=== PATIENT | female | born 1965 | race Caucasian/White ===

== ENCOUNTER 2021-02-23 10:43 | Outpatient (REF) | payer OTHER, SELFPAY ==
[2021-02-23 10:50] LABS: MANUAL DIFF FLAG NO
[2021-02-23 11:09] LABS: Appearance Urine CLEAR; Color Urine YELLOW; Glucose Urine UA NEG (NEG); Leukocyte Esterase Urine NEG (NEG); Nitrite Urine NEG (NEG); Specific Gravity - Urine 1.025 (1.005-1.025); Urine Blood NEG (NEG); Urine Ketones NEG (NEG); Urine Protein NEG (NEG-TRACE)
[2021-02-23 11:10] LABS: Basophils Absolute Auto 0.1 X10*3/uL (0.0-0.2); Basophils Percent Auto 0.8 % (0-2); Eosinophils Absolute Auto 0.7 X10*3/uL (0.0-0.4); Eosinophils Percent Auto 9.3 % (0-4); Hematocrit 40.8 % (37.0-47.0); Hemoglobin 13.3 g/dl (12.0-16.0); Imm Gran Abs Auto 0.02 X10*3/uL (0.00-0.03); Imm Gran Pct Auto 0.3 % (0.0-0.4); Lymphocytes Absolute Auto 3.4 X10*3/uL (1.2-4.9); Mean Corpuscular HGB Conc 32.6 g/dl (31.0-35.0); Mean Corpuscular Volume 92.1 fL (80.0-98.0); Monocytes Absolute Auto 0.5 X10*3/uL (0.1-1.2); Monocytes Percent Auto 5.9 % (2-11); Neutrophils Absolute Auto 3.1 x10*3/uL (2.0-8.3); Neutrophils Percent Auto 39.7 % (45-73); Platelet Count 349 X10*3/uL (160-400); Red Blood Count 4.43 X10*6/uL (4.20-5.50); Red Cell Distribution Width 12.9 % (11.0-16.0); White Blood Count 7.8 X10*3/uL (4.8-10.8)
[2021-02-23 11:18] LABS: Alanine Aminotransferase 99 U/L (0-31); Albumin Level 4.2 g/dL (3.5-5.0); Alkaline Phosphatase 143 U/L (39-117); Anion Gap 12 (12-20); Aspartate Amino Transferase 49 U/L (5-31); Bilirubin Total 0.3 mg/dL (0.0-1.0); Blood Urea Nitrogen 14 mg/dL (9-16); Calcium 9.3 mg/dL (8.4-10.2); Carbon Dioxide 24 mmol/L (22-29); Chloride 109 mmol/L (96-108); Cholesterol 226 mg/dL; Estimated Glomerular Filt Rate > 60; Glucose Fasting 108 mg/dL (60-99); HDL Cholesterol 65 mg/dL; LDL Cholesterol Calculated 149 mg/dl; Potassium 4.3 mmol/L (3.3-5.1); Sodium 141 mmol/L (135-145); Triglycerides 61 mg/dL
== END 2021-02-23 10:44 | disposition home or self-care (01) ==
LOC: HO.LNP 10:43
PROVIDERS: PCP Internal Medicine; Visit Provider Internal Medicine
DX: Z00.00 Encounter for general adult medical examination without abnormal findings (principal)
CPT/HCPCS: 80053; 80061; 81003; 85025

== ENCOUNTER 2021-03-16 15:24 | Outpatient (REF) | payer OTHER, SELFPAY ==
[2021-03-16 15:27] LABS: MANUAL DIFF FLAG NO
[2021-03-16 15:37] LABS: Basophils Absolute Auto 0.1 X10*3/uL (0.0-0.2); Basophils Percent Auto 0.7 % (0-2); Eosinophils Absolute Auto 1.5 X10*3/uL (0.0-0.4); Eosinophils Percent Auto 14.5 % (0-4); Hematocrit 39.8 % (37.0-47.0); Hemoglobin 13.2 g/dl (12.0-16.0); Imm Gran Abs Auto 0.01 X10*3/uL (0.00-0.03); Imm Gran Pct Auto 0.1 % (0.0-0.4); Lymphocytes Absolute Auto 4.2 X10*3/uL (1.2-4.9); Lymphocytes Percent Auto 40.5 % (20-40); Mean Corpuscular HGB Conc 33.2 g/dl (31.0-35.0); Mean Corpuscular Volume 90.5 fL (80.0-98.0); Mean Platelet Volume 9.7 fL (9.4-12.3); Monocytes Absolute Auto 0.6 X10*3/uL (0.1-1.2); Monocytes Percent Auto 5.5 % (2-11); Neutrophils Percent Auto 38.7 % (45-73); Platelet Count 376 X10*3/uL (160-400); Red Cell Distribution Width 13.2 % (11.0-16.0); White Blood Count 10.3 X10*3/uL (4.8-10.8)
[2021-03-16 15:59] LABS: Alanine Aminotransferase 65 U/L (0-31); Albumin Level 4.4 g/dL (3.5-5.0); Alkaline Phosphatase 154 U/L (39-117); Aspartate Amino Transferase 45 U/L (5-31); Bilirubin Direct < 0.2 mg/dL (0.0-0.5); Bilirubin Total 0.2 mg/dL (0.0-1.0); Total Protein 7.4 g/dL (6.5-8.0)
[2021-03-17 12:04] LABS: ~Hepatitis B Surface Antibody NONREACTIVE (Nonreactive)
[2021-03-17 12:11] LABS: HBc Num1 0.08 S/CO (0.00-0.79); Hepatitis B Core Antibody Nonreactive (Nonreactive); Hepatitis B Surface Antigen Negative (Negative); ~HepC Num1 0.12 S/CO (0.00-0.79); ~Hepatitis C Antibody Nonreactive (Nonreactive)
[2021-03-21 08:33] LABS: Hepatitis A Antibody IgM 0.16 Index (0-0.79); ~Hepatitis A Antibody IgM Nonreactive (Nonreactive)
== END 2021-03-16 15:25 | disposition home or self-care (01) ==
LOC: HO.LNP 15:24
PROVIDERS: Visit Provider Internal Medicine
DX: R94.5 Abnormal results of liver function studies (principal); D72.820 Lymphocytosis (symptomatic)
CPT/HCPCS: 80076; 85025; 86704; 86706; 86709; 86803; 87340

== ENCOUNTER 2021-03-23 09:58 | Outpatient (REF) | payer OTHER, SELFPAY ==
--- NOTE | ~2021-03-23 | US_ITS ---
EXAMINATION: US ABDOMEN COMPLETE CLINICAL INFORMATION: Elevated LFTs. COMPARISON: CT abdomen and pelvis without contrast 04/26/2011. TECHNIQUE: Real-time imaging of the abdominal viscera. FINDINGS: PANCREAS: Normal. ABDOMINAL AORTA: The proximal abdominal aorta is normal caliber. There is mild arthroscopic mixed plaque in the distal aortic segment. INFERIOR VENA CAVA: Visualized portions are normal. LIVER: Normal. The liver is normal in size. The liver contour is normal. Parenchymal echogenicity is normal. No focal hepatic lesion. There is no intrahepatic biliary duct dilatation seen. GALLBLADDER: Normal. The gallbladder is physiologically distended without evidence of stones, sludge, polyps, wall thickening or pericholecystic fluid. COMMON BILE DUCT: Normal in caliber measuring 0.3 cm in diameter. RIGHT KIDNEY: Normal. No hydronephrosis. No renal calculi or focal parenchymal lesions. The kidney measures 12.0 cm in maximum dimension. LEFT KIDNEY: Normal. No hydronephrosis. No renal calculi or focal parenchymal lesions. The kidney measures 10.0 cm in maximum dimension. SPLEEN: Normal. The spleen measures 7.5 cm in maximum dimension. FREE FLUID: None. US/US abdomen complete IMPRESSION: Mild atherosclerotic plaque distal aortic segment. Rest of the abdominal ultrasound is unremarkable.
== END 2021-03-23 09:59 | disposition home or self-care (01) ==
LOC: HO.US 09:58
PROVIDERS: Absent Provider Internal Medicine; PCP Internal Medicine; Visit Provider Internal Medicine
DX: R94.5 Abnormal results of liver function studies (principal)
CPT/HCPCS: 76700

== ENCOUNTER 2021-04-20 11:10 | Emergency (ER) | payer OTHER, SELFPAY ==
--- NOTE | 2021-04-20 | ECG_ITS ---
Test Reason : CHEST PAIN Blood Pressure : / mmHG Vent. Rate : 087 BPM Atrial Rate : 087 BPM P-R Int : 146 ms QRS Dur : 070 ms QT Int : 358 ms P-R-T Axes : 060 071 051 degrees QTc Int : 430 ms Normal sinus rhythm Minimal voltage criteria for LVH, may be normal variant ( Sokolow-Allred ) Borderline ECG No previous ECGs available Referred By: Generic ED Physician Electronically Signed By:Jairo Milton
--- NOTE | ~2021-04-20 | XR_ITS ---
EXAMINATION: XR CHEST 2 VIEW CLINICAL INFORMATION: Chest pain COMPARISON: None TECHNIQUE: PA and lateral views of the chest obtained. FINDINGS: The lungs are clear. There are no pleural effusions. The cardiomediastinal silhouette is normal. No rib fracture or pneumothorax is detected. There are no bone lesions. XR/XR chest 2V IMPRESSION: No active cardiopulmonary disease.
[2021-04-20 12:10] VITALS: BP 173/105; PULSE 83; RESP 18; TEMP 36.4; O2SAT 97; BMI 28.7
[2021-04-20 13:21] LABS: MANUAL DIFF FLAG NO
[2021-04-20 13:41] LABS: COVID-19 Test Negative (Negative); IDNOW Serial# 9DD0AD1C
[2021-04-20 13:42] LABS: Basophils Absolute Auto 0.1 X10*3/uL (0.0-0.2); Basophils Percent Auto 0.8 % (0-2); Eosinophils Absolute Auto 0.4 X10*3/uL (0.0-0.4); Eosinophils Percent Auto 6.2 % (0-4); Hematocrit 41.7 % (37.0-47.0); Hemoglobin 13.6 g/dl (12.0-16.0); Imm Gran Abs Auto 0.01 X10*3/uL (0.00-0.03); Imm Gran Pct Auto 0.2 % (0.0-0.4); Lymphocytes Absolute Auto 2.4 X10*3/uL (1.2-4.9); Lymphocytes Percent Auto 37.6 % (20-40); Mean Corpuscular HGB Conc 32.6 g/dl (31.0-35.0); Mean Corpuscular Hemoglobin 29.6 pg (27.0-33.0); Mean Corpuscular Volume 90.8 fL (80.0-98.0); Mean Platelet Volume 9.1 fL (9.4-12.3); Monocytes Absolute Auto 0.4 X10*3/uL (0.1-1.2); Monocytes Percent Auto 6.1 % (2-11); Neutrophils Absolute Auto 3.2 x10*3/uL (2.0-8.3); Neutrophils Percent Auto 49.1 % (45-73); Platelet Count 390 X10*3/uL (160-400); Red Blood Count 4.59 X10*6/uL (4.20-5.50); Red Cell Distribution Width 13.3 % (11.0-16.0); White Blood Count 6.4 X10*3/uL (4.8-10.8)
--- NOTE | 2021-04-20 13:52 | ED.CHESTPAIN ---
HPI - Chest Pain General Chief Complaint: Chest Pain Stated Complaint: chest pain Time Seen by Provider: 04/20/21 12:04 Source: patient Mode of arrival: ambulatory Limitations: no limitations History of Present Illness HPI narrative: Patient comes to emergency room complaining of chest pressure that started approximately 9 hours ago. Patient states that last night she had deep tissue massage, they worked mostly in her upper body, back, chest. States that she has never had this discomfort in her chest before. Patient states it is right in the middle, nonradiating. Patient denies any abdominal issues, no recent URIs. Complaining of insomnia, states she recently started going through menopause and since then she has had intermittent difficulty sleeping. Related Data Allergies Allergy/AdvReac Type Severity Reaction Status Date / Time No Known Allergies Allergy Unverified 11/25/19 16:16 Review of Systems Review of Systems: Constitutional : No Weight loss, No Fever, No Chills, No Night Sweats, No Fatigue, No Malaise ENT/Mouth : No Hearing loss, No Ear Pain, No Nasal Congestion, No Sinus Pain, No Hoarseness, No sore throat, No Rhinorrhea, No Swallowing Difficulty Eyes: No Eye Pain, No Swelling, No Redness, No Foreign Body, No Discharge, No Vision Changes Cardiovascular : Complaining of substernal chest pressure, No SOB, No Dyspnea on Exertion, No Orthopnea, No Edema, No Palpitations Respiratory : No Cough, No Sputum, No Wheezing, No Smoke Exposure, No Dyspnea Gastrointestinal : No Nausea, No Vomiting, No Diarrhea, No Constipation, No abdominal Pain, No Hematochezia, No Melena Genitourinary : no irregular bleeding, No Dysuria, No Urinary Frequency, No Hematuria, No Urinary Incontinence, No Urgency, No Flank Pain, No Urinary Flow Changes, No Hesitancy Musculoskeletal : No joint pain, No Myalgias, No Joint Swelling Skin : No Skin Lesions, No rash Neuro : No Weakness, No Numbness, No Paresthesias, No Loss of Consciousness, No Dizziness, No Headache Psych : No Anxiety/Panic, No Depression, No SI/HI/AH/VH, No Social Issues, Heme/Lymph: No Bruising, No Bleeding,No Lymphadenopathy Endocrine : No Polyuria, No Polydipsia, No Temperature Intolerance [facility] Social History Social History Advance Directives: No Advance Directives Information Provided: No Physical Exam Vital Signs: Vital Signs: Last Vital Signs Temp 97.5 F 04/20/21 12:10 Pulse 83 04/20/21 12:10 Resp 18 04/20/21 12:10 BP 173/105 H 04/20/21 12:10 Pulse Ox 97 04/20/21 12:10 BMI result Body Mass Index 28.7 Const: Other: Appearance: Alert. Oriented X3. No acute distress. Eyes: Pupils equal, round and reactive to light. ENT: Pharynx normal. Neck: Normal inspection. Neck supple. No lymph nodes noted. No crepitus CVS: Normal heart rate and rhythm. Pulses normal. Normal S1 and S2, +2 systolic murmur on left sternal border Respiratory: No respiratory distress. Breath sounds normal. No Wheezing. No rales Abdomen: Soft and nontender. No rigidity. No distention. good BS x4 Skin: Skin warm and dry. Normal skin color. Normal skin turgor. Extremities: No lower extremity edema. No lower extremity edema. No Lacerations. No Rash Neuro: Oriented X 3. No motor deficit. No sensory deficit. Moving all extermities. No slurred speech. Course Course Course Narrative: It is likely that the patient has musculoskeletal pain rather than pain from cardiac etiology. Chest x-ray within normal limits I discussed with the patient she has high blood pressure, patient has not been diagnosed with hypertension. Patient has an appointment coming up with her PCP. I discussed with the patient to have a log of blood pressure reads in the friend settings including home blood pressure monitor and pharmacy/[facility] free blood pressure reads. At this time, patient states that she does feel anxious from being in the hospital. MDM - Chest Pain Lab Data Result diagrams: 04/20/21 13:15 04/20/21 13:15 Labs: Lab Results 04/20/21 04/20/21 04/20/21 Range/Units 13:15 13:15 13:15 WBC 6.4 (4.8-10.8) X10*3/uL RBC 4.59 (4.20-5.50) X10*6/uL Hgb 13.6 (12.0-16.0) g/dl Hct 41.7 (37.0-47.0) % MCV 90.8 (80.0-98.0) fL MCH 29.6 (27.0-33.0) pg MCHC 32.6 (31.0-35.0) g/dl RDW 13.3 (11.0-16.0) % Plt Count 390 (160-400) X10*3/uL MPV 9.1 L (9.4-12.3) fL Immature Gran % (Auto) 0.2 (0.0-0.4) % Neut % (Auto) 49.1 (45-73) % Lymph % (Auto) 37.6 (20-40) % Cloud % (Auto) 6.1 (2-11) % Eos % (Auto) 6.2 H (0-4) % Baso % (Auto) 0.8 (0-2) % Lymph # (Auto) 2.4 (1.2-4.9) X10*3/uL Cloud # (Auto) 0.4 (0.1-1.2) X10*3/uL Eos # (Auto) 0.4 (0.0-0.4) X10*3/uL Baso # (Auto) 0.1 (0.0-0.2) X10*3/uL Abs Immat Gran (auto) 0.01 (0.00-0.03) X10*3/uL Absolute Neuts (auto) 3.2 (2.0-8.3) x10*3/uL Absolute Nucleated RBC 0.000 (0.0-0.012) X10*3/uL Nucleated RBC % (auto) 0.0 (0.0-0.2) /100WBC Sodium 141 (135-145) mmol/L Potassium 4.1 (3.3-5.1) mmol/L Chloride 105 (96-108) mmol/L Carbon Dioxide 26 (22-29) mmol/L Anion Gap 14 (12-20) BUN 11 (9-16) mg/dL Creatinine 0.79 (0.5-1.4) mg/dL Estim Creat Clear Calc 74.3 Estimated GFR > 60 Random Glucose 105 (60-115) mg/dL Calcium 10.4 H D (8.4-10.2) mg/dL Magnesium 2.2 (1.6-2.6) mg/dL Total Bilirubin 0.4 (0.0-1.0) mg/dL Direct Bilirubin 0.2 (0.0-0.5) mg/dL AST 46 H (5-31) U/L ALT 74 H (0-31) U/L Alkaline Phosphatase 201 H D (39-117) U/L Troponin I High Sens < 3.5 (<3.5-17.0) ng/L Total Protein 8.0 (6.5-8.0) g/dL Albumin 4.7 (3.5-5.0) g/dL COVID-19 (DAVI) (Negative) COVID-19 Clin Com 04/20/21 Range/Units 13:15 WBC (4.8-10.8) X10*3/uL RBC (4.20-5.50) X10*6/uL Hgb (12.0-16.0) g/dl Hct (37.0-47.0) % MCV (80.0-98.0) fL MCH (27.0-33.0) pg MCHC (31.0-35.0) g/dl RDW (11.0-16.0) % Plt Count (160-400) X10*3/uL MPV (9.4-12.3) fL Immature Gran % (Auto) (0.0-0.4) % Neut % (Auto) (45-73) % Lymph % (Auto) (20-40) % Cloud % (Auto) (2-11) % Eos % (Auto) (0-4) % Baso % (Auto) (0-2) % Lymph # (Auto) (1.2-4.9) X10*3/uL Cloud # (Auto) (0.1-1.2) X10*3/uL Eos # (Auto) (0.0-0.4) X10*3/uL Baso # (Auto) (0.0-0.2) X10*3/uL Abs Immat Gran (auto) (0.00-0.03) X10*3/uL Absolute Neuts (auto) (2.0-8.3) x10*3/uL Absolute Nucleated RBC (0.0-0.012) X10*3/uL Nucleated RBC % (auto) (0.0-0.2) /100WBC Sodium (135-145) mmol/L Potassium (3.3-5.1) mmol/L Chloride (96-108) mmol/L Carbon Dioxide (22-29) mmol/L Anion Gap (12-20) BUN (9-16) mg/dL Creatinine (0.5-1.4) mg/dL Estim Creat Clear Calc Estimated GFR Random Glucose (60-115) mg/dL Calcium (8.4-10.2) mg/dL Magnesium (1.6-2.6) mg/dL Total Bilirubin (0.0-1.0) mg/dL Direct Bilirubin (0.0-0.5) mg/dL AST (5-31) U/L ALT (0-31) U/L Alkaline Phosphatase (39-117) U/L Troponin I High Sens (<3.5-17.0) ng/L Total Protein (6.5-8.0) g/dL Albumin (3.5-5.0) g/dL COVID-19 (DAVI) Negative (Negative) COVID-19 Clin Com See Note Scores Heart Score History: -0- slightly suspicious ECG: -0- normal Age: -1- >45 - <65 Risk factory: -0- no risk factors known Troponin: -0- < or = normal limit Score: 1 Risk: 1.7% Discharge Plan Discharge Clinical Impression: Atypical chest pain, High blood pressure Patient Disposition: Home, Self-Care Instructions: Chest Pain (ED), Chest Wall Pain (ED) Additional Instructions: Please follow-up with your primary care physician tomorrow. If you have any worsening or new symptoms, please return to the emergency room or call 911
[2021-04-20 13:53] LABS: Alanine Aminotransferase 74 U/L (0-31); Albumin Level 4.7 g/dL (3.5-5.0); Alkaline Phosphatase 201 U/L (39-117); Anion Gap 14 (12-20); Aspartate Amino Transferase 46 U/L (5-31); Bilirubin Direct 0.2 mg/dL (0.0-0.5); Bilirubin Total 0.4 mg/dL (0.0-1.0); Blood Urea Nitrogen 11 mg/dL (9-16); Calcium 10.4 mg/dL (8.4-10.2); Carbon Dioxide 26 mmol/L (22-29); Chloride 105 mmol/L (96-108); Creatinine Clr Calc Pharmacy 74.3; Estimated Glomerular Filt Rate > 60; Glucose Random 105 mg/dL (60-115); Magnesium 2.2 mg/dL (1.6-2.6); Potassium 4.1 mmol/L (3.3-5.1); Sodium 141 mmol/L (135-145)
[2021-04-20 13:54] LABS: Troponin-I High Sensitivity < 3.5 ng/L (<3.5-17.0)
== END 2021-04-20 14:23 | disposition home or self-care (01) ==
PROVIDERS: Physician Assistant; Emergency Provider Emergency Medicine; PCP Internal Medicine
DX: R07.89 Other chest pain (principal); R03.0 Elevated blood-pressure reading, without diagnosis of hypertension; Z20.822 Contact with and (suspected) exposure to COVID-19
CPT/HCPCS: 71046; 80048; 80076; 83735; 84484; 85025; 87635; 93005; 99283

== ENCOUNTER → 2021-05-15 11:11 | Outpatient (BNVA) | payer OTHER, SELFPAY | PROVIDERS: PCP Internal Medicine; Visit Provider Orthopaedic Surgery ==

== ENCOUNTER 2021-05-31 10:58 | Day surgery (SDC) | payer OTHER, SELFPAY ==
--- NOTE | 2021-05-31 11:04 | W.PM.OPN ---
Operative Note Operative Note Date of Service: 05/31/21 Narrative: Operative Note Preop diagnosis: 1. right thumb Trigger finger Postop diagnosis: 1. right thumb Trigger finger Procedure: 1. right thumb A1 candi release Surgeon: Elena Barrios MD Anesthesia: local block using 1% lidocaine with epinephrine Findings: No locking or catching after A1 candi release. significant hourglass deformity of the FPL tendon beneath the A1 candi EBL: Less than 5 mL Tourniquet time: None Specimens: None Complications: None Disposition: Brought to recovery room in stable condition Plan: Follow-up for 10-14 days for wound check and suture removal Indications: The patient is 55 years old, with a right thumb trigger finger that has been unresponsive to nonoperative management. The risks and benefits of operative treatment including but not limited to risk of damage to blood vessels, nerves, tendons, infection, persistent pain, persistent symptoms, recurrence or possible need for additional surgery were discussed with the patient and the patient wishes to proceed with surgery. Procedure: Once consent was obtained a local block was performed in the preop area using a combination of 1% lidocaine with epinephrine. The patient was then brought back to the operating suite and placed on the operative table in supine position. A tourniquet was applied to the proximal aspect of the right upper extremity and the limb was prepped and draped in a standard surgical fashion. Once assured that we had a good block, a 1.5 cm oblique incision was made centered over the A1 candi of the right thumb . The incision was made through the skin to the subcutaneous tissues using a #15 blade. Careful dissection was made down to the level of the A1 candi using tenotomy scissors, with care being taken to protect the nearby neurovascular structures. A longitudinal incision was made in the A1 candi 1st using a #15 blade, then using tenotomy scissors under direct visualization. The A1 candi was noted to be thickened. Following our A1 candi release, we no longer saw any locking or catching of the digit with flexion and extension. Once satisfied with our A1 candi release the wound was copiously irrigated with normal saline and hemostasis was obtained with a brief period of local pressure. The skin edges were reapproximated with some 5.0 nylon suture material and a sterile dressing was applied. The patient appears to have tolerated the procedure well and with no complications. All digits were well vascularized at the conclusion of the case.
[2021-05-31 11:17] VITALS: BP 120/63; PULSE 81; RESP 20; O2SAT 96; BMI 27.8
[2021-05-31 13:04] VITALS: BP 105/62; PULSE 64; RESP 16; TEMP 36.2; O2SAT 96
--- NOTE | 2021-05-31 13:15 | MHC.SHP ---
Pre-Procedural Eval Section A Date of Service: 05/31/21 The patient is an INPATIENT: No Changes since office visit: No Cold of Flu in the past 2 weeks, No New Medical Problems, No Changes in Medication and No Patient answered all questions The History & Physical has been completed within 30 days and I have reviewed it.: Yes Section B Chief Complaint: Trigger thumb, right thumb Allergies: Allergies Allergy/AdvReac Type Severity Reaction Status Date / Time No Known Allergies Allergy Unverified 05/15/21 11:28 Plan I have reviewed the history and physical and performed a pertinent physical examination on my patient. No changes have occurred unless specified.
== END 2021-05-31 13:27 | disposition home or self-care (01) ==
PROVIDERS: PCP Internal Medicine; Visit Provider Orthopaedic Surgery
PROC: (CPT 26055; principal; 2021-05-31 12:10)
DX: M65.311 Trigger thumb, right thumb (principal); M24.841 Other specific joint derangements of right hand, not elsewhere classified
CPT/HCPCS: 26055; J0171

== ENCOUNTER → 2021-06-13 11:36 | Outpatient (BNVA) | payer OTHER, SELFPAY | PROVIDERS: PCP Internal Medicine; Visit Provider Orthopaedic Surgery | DX: Z13.89 Encounter for screening for other disorder (principal) ==

== ENCOUNTER 2021-07-26 11:42 | Outpatient (REF) | payer OTHER, SELFPAY ==
[2021-07-26 17:01] LABS: Alanine Aminotransferase 35 U/L (0-31); Albumin Level 4.2 g/dL (3.5-5.0); Alkaline Phosphatase 142 U/L (39-117); Aspartate Amino Transferase 29 U/L (5-31); Bilirubin Direct < 0.2 mg/dL (0.0-0.5); Bilirubin Total 0.3 mg/dL (0.0-1.0); Iron 61 mcg/dL (30-160); Percent Iron Saturation 14 % (15-50); Total Iron Binding Capacity 427 mcg/dL (228-428); Total Protein 7.1 g/dL (6.5-8.0); Unsaturated Iron Binding 366 ug/dL
[2021-07-26 17:22] LABS: Ferritin 22 ng/mL (10-250)
[2021-07-28 14:46] LABS: Alpha 1 Anti-trypsin 115 mg/dL (83-199)
[2021-07-31 09:37] LABS: ANA Pattern 2 Nuclear Envelope; Anti Nuclear Antibody Screen POSITIVE (NEGATIVE)
[2021-08-01 14:02] LABS: Smooth Muscle Antibody <20 U (<20)
[2021-08-01 14:57] LABS: FIB-ALT 30 U/L (6-29); FIB-Alpha-2-Macroglobulin 162 mg/dL (106-279); FIB-Apolipoprotein A1 201 mg/dL (101-198); FIB-GGT 106 U/L (3-70); FIB-Haptoglobin 168 mg/dL (43-212); FIB-Total Bilirubin 0.3 mg/dL (0.2-1.2); Liver Fibrosis Score 0.08; Liver Fibrosis Stage F0; Nec Inflam Act Grade A0; Nec Inflam Act Score 0.11
[2021-08-02 13:16] LABS: Mitochondrial Antibodies POSITIVE (NEGATIVE)
[2021-08-02 13:47] LABS: Mitochondrial Ab Titer >1:640 titer (<1:20)
== END 2021-07-26 11:43 | disposition home or self-care (01) ==
LOC: HO.LAB 11:42
PROVIDERS: PCP Internal Medicine; Referring Provider Internal Medicine; Visit Provider Internal Medicine
DX: R79.89 Other specified abnormal findings of blood chemistry (principal)
CPT/HCPCS: 36415; 80076; 81596; 82103; 82728; 83540; 85610; 86015; 86038; 86039; 86255; 86256

== ENCOUNTER → 2021-08-07 09:39 | Outpatient (BNVA) | payer OTHER, SELFPAY | PROVIDERS: PCP Internal Medicine; Visit Provider Internal Medicine Rheumatology | DX: M25.50 Pain in unspecified joint (principal) ==

== ENCOUNTER 2021-08-14 09:28 | Outpatient (REF) | payer OTHER, SELFPAY ==
[2021-08-14 17:52] LABS: Creatinine Urine 94.47 mg/dL; Microalbum/Creatinine Ratio Ur 6.3 ug/mg cr
[2021-08-14 17:52] LABS: C Reactive Protein 0.41 mg/dL (< or = 0.50)
[2021-08-14 18:09] LABS: Erythrocyte Sedimentation Rate 10 MM/HR (0-20)
[2021-08-16 17:41] LABS: Anti DNA DS Antibody <1 IU/mL; SM/Ribonucleoprotein Ab <1.0 NEG AI (<1.0 NEG); Smith Protein <1.0 NEG AI (<1.0 NEG)
== END 2021-08-14 09:29 | disposition home or self-care (01) ==
LOC: HO.LAB 09:28
PROVIDERS: PCP Internal Medicine; Visit Provider Internal Medicine Rheumatology
DX: M25.50 Pain in unspecified joint (principal); R76.8 Other specified abnormal immunological findings in serum
CPT/HCPCS: 36415; 82043; 85652; 86140; 86225; 86235

== ENCOUNTER 2021-08-17 07:15 | Day surgery (SDC) | payer OTHER, SELFPAY ==
[2021-08-13 15:39] VITALS: BMI 30.2
--- NOTE | 2021-08-16 10:58 | HO.ANESPROP2 ---
Documented by User: Felicia Fung NP 08/16/21 10:59 HPI - Anesthesia Eval Consult details Narrative: 56yo F for Colonoscopy PMFSH Active Problems Active Problems: All Active Problems (Updated 08/13/21 @ 15:33 by Donya Askew, RN) Trigger finger of right thumb (Acute) Antimitochondrial antibody positive (Acute) Osteoarthritis of lumbar spine (Acute) Polyarthralgia (Acute) ORION positive (Acute) Past Medical History Medical History (Updated 08/13/21 @ 15:33 by Donya Askew, RN) ORION positive Antimitochondrial antibody positive Anxiety Elevated liver enzymes Osteoarthritis of lumbar spine Polyarthralgia Surgical History Surgical History (Updated 08/13/21 @ 15:35 by Donya Askew RN) History of hand surgery Social History Social History (Updated 08/07/21 @ 09:49 by Blake Banuelos LPN) Household Members: Spouse and Family Housing: House Are you a primary laboratory animal care veterinarian to a significant other at home: No Do you presently have visiting nurse or other home services: No Alcohol intake: current Alcohol intake frequency: does not drink Alcohol type: hard liquor Patient Tobacco Use Status: Never used Tobacco e-Cigarette/Vaping Use: Never Used Second Hand Smoke Exposure: No Use of substances other than those prescribed or required for medical reasons: No Are you DNR?: No Advance Directives: No Advance Directives Information Provided: Yes Advance Directives on File: No service: No Current occupational status: employed Current occupation: [employer] Allergies Allergy/AdvReac Type Severity Reaction Status Date / Time No Known Allergies Allergy Unverified 08/07/21 09:45 Home Medications Medication Instructions Recorded Confirmed Last Taken Type aspirin 81 mg tablet,delayed 81 mg PO DAILY 08/07/21 08/13/21 Unknown History release (Adult Low Dose Aspirin) cetirizine 10 mg tablet (Zyrtec) 10 mg PO DAILY 08/07/21 08/13/21 Unknown History cholecalciferol (vitamin D3) 50 50 mcg PO DAILY 08/07/21 08/13/21 Unknown History mcg (2,000 unit) capsule ibuprofen 200 mg tablet (Advil) 400 mg PO Q8H PRN Pain 08/07/21 08/13/21 Unknown History bupropion HCl 150 mg tablet,12 hr 1 tab PO QAM 08/13/21 08/13/21 Unknown History sustained-release Exam Exam Date and Time: August 16, 2021 1058 Height,Weight and Vital Signs: Height 5 ft 2 in Weight 74.843 kg Pertinent Lab Results Pertinent Lab Results: Laboratory Tests 04/20/21 04/20/21 13:15 13:15 WBC 6.4 Hgb 13.6 Hct 41.7 Plt Count 390 Sodium 141 Potassium 4.1 Chloride 105 Carbon Dioxide 26 BUN 11 Creatinine 0.79 Narrative Narrative: EKG 04/2021 Vent. Rate : 087 BPM ? ? Atrial Rate : 087 BPM ?? P-R Int : 146 ms? QRS Dur : 070 ms ? ? QT Int : 358 ms ? ? ? P-R-T Axes : 060 071 051 degrees ?? QTc Int : 430 ms ? Normal sinus rhythm Minimal voltage criteria for LVH, may be normal variant ( Sokolow-Allred ) Borderline ECG No previous ECGs available Assessment and Plan Assessment Anesthesia Assessment: Chart Reviewed Documented by User: Anabell Negron MD 08/17/21 08:36 [facility] Past Medical History Medical History (Updated 08/13/21 @ 15:33 by Donya Askew RN) ORION positive Antimitochondrial antibody positive Anxiety Elevated liver enzymes Osteoarthritis of lumbar spine Polyarthralgia Family History Family history of problems with anesthesia: No Surgical History Surgical History (Updated 08/13/21 @ 15:35 by Donya Askew RN) History of hand surgery History of Problems with Anesthesia: No Social History Social History (Updated 08/07/21 @ 09:49 by Blake Banuelos LPN) Household Members: Spouse and Family Housing: House Are you a primary laboratory animal care veterinarian to a significant other at home: No Do you presently have visiting nurse or other home services: No Alcohol intake: current Alcohol intake frequency: does not drink Alcohol type: hard liquor Patient Tobacco Use Status: Never used Tobacco e-Cigarette/Vaping Use: Never Used Second Hand Smoke Exposure: No Use of substances other than those prescribed or required for medical reasons: No Are you DNR?: No Advance Directives: No Advance Directives Information Provided: Yes Advance Directives on File: No service: No 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 occupational status: 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 Allergies Allergy/AdvReac Type Severity Reaction Status Date / Time No Known Allergies Allergy Unverified 08/07/21 09:45 Home Medications Medication Instructions Recorded Confirmed Last Taken Type aspirin 81 mg tablet,delayed 81 mg PO DAILY 08/07/21 08/13/21 Unknown History release (Adult Low Dose Aspirin) cetirizine 10 mg tablet (Zyrtec) 10 mg PO DAILY 08/07/21 08/13/21 Unknown History cholecalciferol (vitamin D3) 50 50 mcg PO DAILY 08/07/21 08/13/21 Unknown History mcg (2,000 unit) capsule ibuprofen 200 mg tablet (Advil) 400 mg PO Q8H PRN Pain 08/07/21 08/13/21 Unknown History bupropion HCl 150 mg tablet,12 hr 1 tab PO QAM 08/13/21 08/13/21 Unknown History sustained-release Exam Airway Mallampati Class: II (Caps laterally top and bottom on right) TM Dist: >3cm Neck ROM: Full Heart: rrr Lungs: cta Assessment and Plan Assessment Anesthesia Assessment: Anesthesia Plan Discussed and Chart Reviewed Final Anesthetic Review Family History of Problems with Anesthesia: No History of Problems with Anesthesia: No NPO: Yes ASA Class: II Final Preanesthetic Review: No Changes in Pt Med Stat, Meds/Allgs Chart Reviewed and Consent Obtained/Reviewed Patient Risk: Intermediate Procedure Risk: Intermediate Anesthetic Plan Anesthetic Plan: MAC: Disposition: Standard PACU
[2021-08-17 07:41] VITALS: BP 152/89; PULSE 86; RESP 18; TEMP 36.9; O2SAT 97
[2021-08-17] MEDS: Lactated Ringers 1,000 ML 100 ML IVCONT (07:43)
--- NOTE | 2021-08-17 09:40 | P.BOP_ITS ---
Brief Operative Note Date of Service: 08/17/21 Pre-op diagnosis: Screening Post-op diagnosis: other (Diverticulosis) Procedure: Colonoscopy to the cecum Surgeon: Kevin De Leon Anesthesia: MAC Was an Sack Cleaner used for this Procedure?: No Estimated blood loss (mL): 0 Pathology: none sent Condition: stable Disposition: PACU
[2021-08-17 09:44] VITALS: BP 109/45; PULSE 70; RESP 16; TEMP 36.1; O2SAT 98
[2021-08-17 09:58] VITALS: BP 92/60; PULSE 70; RESP 18; O2SAT 95
[2021-08-17 10:13] VITALS: BP 102/63; PULSE 71; RESP 16; TEMP 36.2; O2SAT 95
--- NOTE | 2021-08-17 19:24 | OP_ITS ---
SURGEON: Kevin De Leon MD INDICATIONS: The patient presents for evaluation of colorectal cancer screening. Full consent has been obtained from her for this, including risks of bleeding and perforation. PREOPERATIVE DIAGNOSIS: Colorectal cancer screening. POSTOPERATIVE DIAGNOSIS: PROCEDURE PERFORMED: Colonoscopy to cecum. ESTIMATED BLOOD LOSS: COMPLICATIONS: ANESTHESIA: Monitored anesthesia care. ASSISTANTS: SPECIMENS: POSTOPERATIVE DIAGNOSES: Colorectal cancer screening, sigmoid diverticulosis, and internal hemorrhoids. DESCRIPTION OF PROCEDURE: The patient was placed in the left lateral decubitus position. The digital rectal exam revealed no abnormalities. The Olympus video pediatric colonoscope was entered into the rectum and advanced to the cecum with the assistance of abdominal wall pressure. Once in the cecum, I did identify normal-appearing cecal pouch with appendiceal orifice and a normal-appearing ileocecal valve. The entire cecum and ileocecal valve appeared normal. There was transillumination of light deep in the right lower quadrant. The scope was slowly withdrawn assessing all mucosal surfaces carefully. Preparation was excellent. I did not visualize any sign of polyps, colitis, nor angiodysplasia. There was a mild amount of sigmoid diverticulosis. In the rectum, scope was retroflexed visualizing internal hemorrhoids, but no other pathology. The rectal mucosa appeared normal. The scope was straightened and withdrawn from the patient. She tolerated the procedure well and was returned to recovery area in stable condition. IMPRESSION: 1. Sigmoid diverticulosis. 2. Internal hemorrhoids. PLAN: Given the negative exam and negative family history, I would recommend a followup colonoscopy in 10 years. 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 We are going to repeat some lab work and then most likely schedule her for an ultrasound-guided liver biopsy. She will be seen in followup after that. This had all been discussed with her prior to the procedure and she has been given instructions in this regard as well. This has been discussed with her as well. MD MITUL Perez/MAY / [id number] ALEJANDRO
== END 2021-08-17 11:10 | disposition home or self-care (01) ==
PROVIDERS: PCP Internal Medicine; Visit Provider Internal Medicine
PROC: 0DJD8ZZ Inspection of Lower Intestinal Tract, Via Natural or Artificial Opening Endoscopic (ICD-10-PCS; CPT 45378; principal; 2021-08-17 08:20)
DX: Z12.11 Encounter for screening for malignant neoplasm of colon (principal); K57.30 Diverticulosis of large intestine without perforation or abscess without bleeding; K64.8 Other hemorrhoids; R74.8 Abnormal levels of other serum enzymes; R79.89 Other specified abnormal findings of blood chemistry; F41.1 Generalized anxiety disorder; Z79.82 Long term (current) use of aspirin; Z79.899 Other long term (current) drug therapy; Z79.1 Long term (current) use of non-steroidal anti-inflammatories (NSAID)
CPT/HCPCS: 45378; J2250

== ENCOUNTER 2021-08-27 15:46 | Outpatient (REF) | payer OTHER, SELFPAY ==
[2021-08-27 16:49] LABS: MANUAL DIFF FLAG NO
[2021-08-27 17:07] LABS: Basophils Absolute Auto 0.1 X10*3/uL (0.0-0.2); Basophils Percent Auto 0.6 % (0-2); Eosinophils Absolute Auto 0.7 X10*3/uL (0.0-0.4); Eosinophils Percent Auto 8.1 % (0-4); Hematocrit 40.7 % (37.0-47.0); Hemoglobin 13.2 g/dl (12.0-16.0); Imm Gran Abs Auto 0.02 X10*3/uL (0.00-0.03); Imm Gran Pct Auto 0.2 % (0.0-0.4); Lymphocytes Absolute Auto 3.4 X10*3/uL (1.2-4.9); Lymphocytes Percent Auto 38.3 % (20-40); Mean Corpuscular HGB Conc 32.4 g/dl (31.0-35.0); Mean Corpuscular Hemoglobin 29.8 pg (27.0-33.0); Mean Corpuscular Volume 91.9 fL (80.0-98.0); Mean Platelet Volume 9.1 fL (9.4-12.3); Monocytes Absolute Auto 0.7 X10*3/uL (0.1-1.2); Monocytes Percent Auto 7.5 % (2-11); Neutrophils Absolute Auto 4.1 x10*3/uL (2.0-8.3); Neutrophils Percent Auto 45.3 % (45-73); Platelet Count 377 X10*3/uL (160-400); Red Blood Count 4.43 X10*6/uL (4.20-5.50); Red Cell Distribution Width 13.2 % (11.0-16.0)
[2021-08-27 17:13] LABS: Prothrombin Time 11.2 SEC (9.9-13.0)
[2021-08-27 17:16] LABS: Partial Thromboplastin Time 32.5 SEC (24.1-38.0)
[2021-08-27 17:29] LABS: Alanine Aminotransferase 71 U/L (0-31); Albumin Level 4.5 g/dL (3.5-5.0); Alkaline Phosphatase 173 U/L (39-117); Aspartate Amino Transferase 68 U/L (5-31); Bilirubin Direct < 0.2 mg/dL (0.0-0.5); Bilirubin Total 0.3 mg/dL (0.0-1.0); Total Protein 7.5 g/dL (6.5-8.0)
[2021-08-30 09:31] LABS: ANA Pattern 2 Nuclear Envelope; Anti Nuclear Antibody Screen POSITIVE (NEGATIVE)
[2021-09-02 15:37] LABS: Mitochondrial Ab Titer >1:640 titer (<1:20); Mitochondrial Antibodies POSITIVE (NEGATIVE)
== END 2021-08-27 15:47 | disposition home or self-care (01) ==
LOC: HO.LAB 15:46
PROVIDERS: PCP Internal Medicine; Visit Provider Internal Medicine
DX: R76.8 Other specified abnormal immunological findings in serum (principal); R79.89 Other specified abnormal findings of blood chemistry
CPT/HCPCS: 36415; 80076; 85025; 85610; 85730; 86038; 86039; 86255; 86256

== ENCOUNTER 2021-08-30 07:56 | Day surgery (SDC) | payer OTHER, SELFPAY ==
--- NOTE | ~2021-08-30 | US_ITS ---
EXAMINATION: ULTRASOUND-GUIDED LIVER CORE BIOPSY CLINICAL INFORMATION: Elevated liver function tests. COMPARISON: Ultrasound of 03/23/[address] of 04/26/2011. TECHNIQUE: Ultrasound-guided core liver biopsy. FINDINGS: Informed consent was obtained from the patient prior to the procedure. During this process, the procedure and potential alternatives were explained, along with the intended outcome and benefits. The risks of the procedure, as well as the risk of not doing the procedure, were discussed. The patient was given the opportunity to ask questions regarding the procedure and appeared competent to make medical decisions. A signed consent form which documents this discussion was placed in the medical record. Using ultrasound guidance and sterile technique a 17-gauge guiding needle was directed from an anterior approach into the left lobe of the liver. Four 18-gauge core biopsies were then obtained. Needle was removed with some pressure being applied at the puncture site. Postprocedure no subcapsular fluid collection or external fluid around the liver was identified. Patient tolerated procedure without difficulty. US/US biopsy liver IMPRESSION: Liver core biopsy with ultrasound guidance without complication.
[2021-08-30 08:22] VITALS: BP 147/88; PULSE 86; RESP 16; TEMP 36.1; O2SAT 96
[2021-08-30 08:28] LABS: MANUAL DIFF FLAG NO
[2021-08-30 08:31] VITALS: BMI 29.6
[2021-08-30 08:34] LABS: Basophils Absolute Auto 0.1 X10*3/uL (0.0-0.2); Basophils Percent Auto 0.6 % (0-2); Eosinophils Absolute Auto 0.5 X10*3/uL (0.0-0.4); Eosinophils Percent Auto 5.6 % (0-4); Hematocrit 42.6 % (37.0-47.0); Hemoglobin 14.3 g/dl (12.0-16.0); Imm Gran Abs Auto 0.02 X10*3/uL (0.00-0.03); Imm Gran Pct Auto 0.2 % (0.0-0.4); Lymphocytes Absolute Auto 2.5 X10*3/uL (1.2-4.9); Lymphocytes Percent Auto 30.7 % (20-40); Mean Corpuscular HGB Conc 33.6 g/dl (31.0-35.0); Mean Corpuscular Hemoglobin 30.5 pg (27.0-33.0); Mean Corpuscular Volume 90.8 fL (80.0-98.0); Monocytes Absolute Auto 0.5 X10*3/uL (0.1-1.2); Monocytes Percent Auto 5.8 % (2-11); Neutrophils Absolute Auto 4.6 x10*3/uL (2.0-8.3); Neutrophils Percent Auto 57.1 % (45-73); Platelet Count 404 X10*3/uL (160-400); Red Blood Count 4.69 X10*6/uL (4.20-5.50); Red Cell Distribution Width 13.4 % (11.0-16.0); White Blood Count 8.1 X10*3/uL (4.8-10.8)
[2021-08-30 08:41] LABS: Prothrombin Time 11.3 SEC (9.9-13.0)
[2021-08-30 08:44] LABS: Partial Thromboplastin Time 33.3 SEC (24.1-38.0)
[2021-08-30 09:55] VITALS: BP 120/68; PULSE 65; RESP 18; TEMP 37.3; O2SAT 94
[2021-08-30] MEDS: Lidocaine HCl 1 % MPF 5 ML VIAL SUBCUT (10:04)
[2021-08-30 10:10] VITALS: BP 137/77; PULSE 62; RESP 18; O2SAT 94
[2021-08-30 10:25] VITALS: BP 131/73; PULSE 72; RESP 18; O2SAT 95
[2021-08-30 10:55] VITALS: BP 119/68; PULSE 77; RESP 20; O2SAT 95
[2021-08-30 11:54] VITALS: BP 155/82; PULSE 79; RESP 18; TEMP 37; O2SAT 96
== END 2021-08-30 12:04 | disposition home or self-care (01) ==
PROVIDERS: Radiology Diagnostic Radiology; PCP Internal Medicine; Visit Provider Radiology Diagnostic Radiology
DX: R79.89 Other specified abnormal findings of blood chemistry (principal); R76.8 Other specified abnormal immunological findings in serum; R74.01 Elevation of levels of liver transaminase levels
CPT/HCPCS: 36415; 47000; 76942; 85025; 85610; 85730; 88307; 88313; 88342; 99152; 99153; J2250; J3010

== ENCOUNTER 2021-11-22 11:52 | Outpatient (REF) | payer OTHER, SELFPAY ==
[2021-11-22 17:31] LABS: Alanine Aminotransferase 40 U/L (0-31); Albumin Level 4.6 g/dL (3.5-5.0); Alkaline Phosphatase 112 U/L (39-117); Aspartate Amino Transferase 38 U/L (5-31); Bilirubin Direct 0.2 mg/dL (0.0-0.5); Bilirubin Total 0.3 mg/dL (0.0-1.0); Total Protein 7.4 g/dL (6.5-8.0)
== END 2021-11-22 11:53 | disposition home or self-care (01) ==
LOC: HO.LAB 11:52
PROVIDERS: Visit Provider Internal Medicine
DX: K74.3 Primary biliary cirrhosis (principal)
CPT/HCPCS: 36415; 80076

== ENCOUNTER → 2021-12-21 08:27 | Outpatient (REF) | payer OTHER, SELFPAY ==
--- NOTE | 2021-12-21 08:30 | CA_ITS ---
Transthoracic Echocardiogram Patient (Last, First, Middle): Sofía Carlin, Gender: Female Date of : 1965 Age: 56 Procedure Date: 12/21/2021 Procedure Type: Transthoracic Echocardiogram Location: OP Height: 157.48 cm Weight: 68.04 kg BSA: 1.69 m2 Heart Rate: 64 bpm BP: 120 / 62 mmHg New Car Inspector: SB Referring MD: Dale Thornton MD Symptoms: heart murmur, new Study Quality: Adequate ECG Rhythm: Sinus Conclusions: - The left ventricular systolic function is normal. The calculated ejection fraction is 68% by biplane method. - No obvious valvular pathology seen on this study. Findings Left Ventricle Normal left ventricular cavity size. There is normal left ventricular wall thickness. The left ventricular systolic function is normal. The calculated ejection fraction is 68% by biplane method. There is no evidence of regional wall motion abnormalities. Diastolic function is normal for age. LV peak GLS -23.1%. Right Ventricle Normal right ventricular cavity size and systolic function. Atria Both atria are normal in size. Aortic Valve There is a normal trileaflet aortic valve. There is no aortic valve stenosis. There is no aortic valve regurgitation. Mitral Valve The mitral valve appears normal. There is no mitral valve regurgitation. There is no mitral valve stenosis. Pulmonic Valve The pulmonic valve is likely normal. Tricuspid Valve Normal tricuspid valve structure. There is trace tricuspid valve regurgitation. Tricuspid regurgitation envelope is inadequate for calculation of right ventricular systolic pressure. Great Vessels The aortic annulus, sinuses of valsalva, and asc aorta are normal in size. Venous The inferior vena cava is normal in size and collapses greater than 50% with inspiration. Pericardium/Pleural There is no evidence of pericardial effusion. Prior Study Comparison No prior study available for comparison. Recommendations, Care & Conclusions No obvious valvular pathology seen on this study. Measurements 2D Linear Measurements IVSd: 0.69 0.6-0.9/0.6-1.0 cm LVIDd: 4.24 3.9-5.3/4.2-5.9 cm LVIDd Index: 2.51 2.4-3.2/2.2-3.1 cm/m2 LVIDs: 3.01 2.0-3.6 cm LVPWd: 0.69 0.7-1.1 cm LA Diam: 3.10 2.7-3.8/3.0-4.0 cm LAIDs Index: 1.83 1.5-2.3 cm/m2 LV Mass: 104.35 67-162/88-224 g LV Mass Index: 61.74 43-95/49-115 g/m2 LVOT Diam: 1.70 3.0+(-)1.3 cm 2D Systolic Function EF 4C: 66.40 >55% EF 2C: 71.80 >55% EF BiP: 68.30 >55% Mitral Valve MV Pk E: 0.67 MV PK A: 0.80 MV Decel Time: 208.00 E/A: 0.80 E'Lateral: 11.10 E'Medial: 8.05 E/E' Med: 8.30 E/E' Lat: 6.00 PHT: 61.00 MVA PHT: 3.61 Decel [place]: 3.21 Aortic Valve AoV Pk Eric: 1.69 AoV Mn Eric: 1.17 AoV VTI: 0.36 AoV Pk Grad: 11.00 Aov Mn Grad: 6.00 JASVIR Cont.VTI: 1.51 LVOT LVOT Pk Eric: 1.20 LVOT Mn Eric: 0.80 LVOT VTI: 0.24 LVOT Pk Grad: 6.00 LVOT Mn Grad: 3.00 LVOT Diam: 1.70 LVOT Area: 2.27 Diastolic Function MV Pk E: 0.67 MV Pk A: 0.80 E/A: 0.80 E'Medial: 8.05 E/E' Med: 8.30 E' Laterial: 11.10 E/E' Lat: 6.00 Right Ventricle TAPSE (mm): 30.10 TVS' Eric: 15.10 Tricuspid Valve RA Press: 3.00 Great Vessels Aorta Sinus of Valsalva: 2.50 2.0-3.5 cm Ao Asc: 2.50 2.1-3.4 cm Pulmonary Valve PV Pk Eric: 1.08 Peak PV Grad: 5.00 Updated in Other Vendor System with Status of Final Dima Salomon MD electronically signed on 12/23/2021 11:29:27 AM with status of Final
== END ==
LOC: HO.CARD 08:27
PROVIDERS: Visit Provider Internal Medicine
DX: R01.1 Cardiac murmur, unspecified (principal)
CPT/HCPCS: 93306; 93356

== ENCOUNTER 2022-04-02 11:04 | Outpatient (REF) | payer OTHER, SELFPAY ==
[2022-04-02 11:10] LABS: MANUAL DIFF FLAG NO
[2022-04-02 11:19] LABS: Basophils Absolute Auto 0.1 X10*3/uL (0.0-0.2); Basophils Percent Auto 0.7 % (0-2); Eosinophils Absolute Auto 0.6 X10*3/uL (0.0-0.4); Eosinophils Percent Auto 6.5 % (0-4); Hematocrit 42.2 % (37.0-47.0); Imm Gran Abs Auto 0.01 X10*3/uL (0.00-0.03); Imm Gran Pct Auto 0.1 % (0.0-0.4); Lymphocytes Absolute Auto 4.7 X10*3/uL (1.2-4.9); Lymphocytes Percent Auto 51.5 % (20-40); Mean Corpuscular HGB Conc 33.2 g/dl (31.0-35.0); Mean Corpuscular Hemoglobin 31.2 pg (27.0-33.0); Mean Platelet Volume 10.5 fL (9.4-12.3); Monocytes Absolute Auto 0.6 X10*3/uL (0.1-1.2); Monocytes Percent Auto 6.8 % (2-11); Neutrophils Absolute Auto 3.1 x10*3/uL (2.0-8.3); Neutrophils Percent Auto 34.4 % (45-73); Platelet Count 363 X10*3/uL (160-400); Red Blood Count 4.49 X10*6/uL (4.20-5.50); Red Cell Distribution Width 12.9 % (11.0-16.0); White Blood Count 9.1 X10*3/uL (4.8-10.8)
[2022-04-02 11:47] LABS: Alanine Aminotransferase 30 U/L (0-31); Albumin Level 4.4 g/dL (3.5-5.0); Alkaline Phosphatase 106 U/L (39-117); Anion Gap 13 (12-20); Aspartate Amino Transferase 26 U/L (5-31); Bilirubin Total 0.3 mg/dL (0.0-1.0); Blood Urea Nitrogen 12 mg/dL (9-16); Calcium 9.8 mg/dL (8.4-10.2); Carbon Dioxide 26 mmol/L (22-29); Chloride 108 mmol/L (96-108); Cholesterol 217 mg/dL; Estimated Glomerular Filt Rate > 60; Glucose Fasting 102 mg/dL (60-99); HDL Cholesterol 64 mg/dL; LDL Cholesterol Calculated 142 mg/dl; Potassium 4.3 mmol/L (3.3-5.1); Sodium 143 mmol/L (135-145); Total Protein 6.9 g/dL (6.5-8.0); Triglycerides 56 mg/dL
[2022-04-02 12:12] LABS: Appearance Urine Clear; Color Urine Yellow; Glucose Urine UA Negative (Negative); Leukocyte Esterase Urine Negative (Negative); Nitrite Urine Negative (Negative); PH 6.5 (5.0-9.0); Specific Gravity - Urine 1.015 (1.005-1.025); Urine Blood Negative (Negative); Urine Ketones Negative (Negative); Urine Protein Negative (Neg-Trace)
== END 2022-04-02 11:05 | disposition home or self-care (01) ==
LOC: HO.LNP 11:04
PROVIDERS: Visit Provider Internal Medicine
DX: Z13.89 Encounter for screening for other disorder (principal)
CPT/HCPCS: 80053; 80061; 81003; 85025

== ENCOUNTER 2022-04-23 11:29 | Outpatient (REF) | payer OTHER, SELFPAY ==
[2022-04-23 11:32] LABS: MANUAL DIFF FLAG NO
[2022-04-23 11:54] LABS: Basophils Absolute Auto 0.1 X10*3/uL (0.0-0.2); Basophils Percent Auto 0.7 % (0-2); Eosinophils Absolute Auto 0.7 X10*3/uL (0.0-0.4); Eosinophils Percent Auto 6.4 % (0-4); Hematocrit 43.1 % (37.0-47.0); Hemoglobin 14.2 g/dl (12.0-16.0); Imm Gran Abs Auto 0.02 X10*3/uL (0.00-0.03); Imm Gran Pct Auto 0.2 % (0.0-0.4); Lymphocytes Absolute Auto 4.5 X10*3/uL (1.2-4.9); Lymphocytes Percent Auto 44.1 % (20-40); Mean Corpuscular HGB Conc 32.9 g/dl (31.0-35.0); Mean Corpuscular Hemoglobin 30.1 pg (27.0-33.0); Mean Corpuscular Volume 91.3 fL (80.0-98.0); Mean Platelet Volume 9.8 fL (9.4-12.3); Monocytes Absolute Auto 0.7 X10*3/uL (0.1-1.2); Neutrophils Absolute Auto 4.3 x10*3/uL (2.0-8.3); Neutrophils Percent Auto 41.6 % (45-73); Platelet Count 417 X10*3/uL (160-400); Red Blood Count 4.72 X10*6/uL (4.20-5.50); Red Cell Distribution Width 12.5 % (11.0-16.0); White Blood Count 10.3 X10*3/uL (4.8-10.8)
== END 2022-04-23 11:30 | disposition home or self-care (01) ==
LOC: HO.LNP 11:29
PROVIDERS: Visit Provider Internal Medicine
DX: D72.820 Lymphocytosis (symptomatic) (principal)
CPT/HCPCS: 85025

== ENCOUNTER 2022-08-23 10:41 | Outpatient (REF) | payer OTHER, SELFPAY ==
--- NOTE | ~2022-08-23 | MM_ITS ---
EXAMINATION: MM SCREENING DIGITAL BREAST TOMOSYNTHESIS, BILATERAL CLINICAL INFORMATION: Screening. Asymptomatic. The lifetime risk of breast cancer based on the Tyrer-Cuzick Model is 9%. COMPARISON: Outside mammography: 01/12/2021, 04/23/2019, 11/27/2016 ([facility]) TECHNIQUE: Digital breast tomosynthesis is performed in both the craniocaudal and mediolateral oblique views along with computer-aided detection (CAD). Synthesized 2D images are generated from the tomosynthesis. FINDINGS: There are scattered areas of fibroglandular density (ACR BI-RADS breast composition Category b). There are no significant masses, abnormal calcifications, or other abnormalities. Parenchymal pattern is similar to prior studies. There is no developing density or architectural abnormality. There is incidental small intramammary node posterior upper outer right breast and incidental low right axillary tail node similar to outside exams. The skin contours are unremarkable. No significant changes. MM/MM tomosynthesis screening BI IMPRESSION: No mammographic evidence of malignancy. ASSESSMENT: BI-RADS 2: Benign RECOMMENDATION: Routine annual mammography screening. This patient's information was entered into a reminder system with a target due date for their next mammogram.
== END 2022-08-23 10:42 | disposition home or self-care (01) ==
LOC: HO.MAMMO 10:41
PROVIDERS: PCP Internal Medicine; Visit Provider Internal Medicine
DX: Z12.31 Encounter for screening mammogram for malignant neoplasm of breast (principal)
CPT/HCPCS: 77063; 77067

== ENCOUNTER 2022-10-31 09:06 | Outpatient (REF) | payer OTHER, SELFPAY ==
[2022-10-31 10:49] LABS: Alanine Aminotransferase 21 U/L (0-31); Alkaline Phosphatase 75 U/L (39-117); Aspartate Amino Transferase 23 U/L (5-31); Bilirubin Direct < 0.2 mg/dL (0.0-0.5); Bilirubin Total 0.2 mg/dL (0.0-1.0); Total Protein 6.7 g/dL (6.5-8.0)
== END 2022-10-31 09:07 | disposition home or self-care (01) ==
LOC: HO.LAB 09:06
PROVIDERS: PCP Internal Medicine; Visit Provider Internal Medicine
DX: K74.3 Primary biliary cirrhosis (principal)
CPT/HCPCS: 36415; 80076

== ENCOUNTER 2023-05-23 07:53 | Outpatient (REF) | payer OTHER, SELFPAY ==
--- NOTE | ~2023-05-23 | US_ITS ---
EXAMINATION: US COMPLETE ABDOMEN WITH LIVER ELASTOGRAPHY CLINICAL INFORMATION: History of primary biliary cholangitis. COMPARISON: None available. TECHNIQUE: Real-time imaging of the abdominal viscera. Noninvasive ultrasound liver fibrosis assessment is performed using Herberth ElastPQ point quantification shear wave elastography (2D-SWE) with a C5-2 MHz transducer. Multiple elastography samples are obtained. FINDINGS: PANCREAS: Normal. ABDOMINAL AORTA: The proximal, middle, and distal aortic segments are normal in caliber. INFERIOR VENA CAVA: Visualized portions are normal. LIVER: Liver has normal size and contour. The parenchyma is slightly heterogeneous. There appears to be slightly coarsened parenchymal echotexture. No focal liver lesion or intrahepatic ductal dilatation. The right lobe measures 17.8 cm in length. The left lobe measures 10 cm in length. Portal flow is normal. Shear wave liver elastography median stiffness is 1.55 m/s (reference: normal median stiffness is 1.3 m/s or less). IQR/median stiffness to assess sampling precision is 0.17 (reference: good quality data set is IQR/median stiffness of 0.15 or less). GALLBLADDER: Normal. The gallbladder is physiologically distended without evidence of stones, sludge, polyps, wall thickening or pericholecystic fluid. COMMON BILE DUCT: Normal in caliber measuring 0.6 cm in diameter. RIGHT KIDNEY: Normal. No hydronephrosis. No renal calculi or focal parenchymal lesions. The kidney measures 10.4 cm in maximum dimension. LEFT KIDNEY: Normal. No hydronephrosis. No renal calculi or focal parenchymal lesions. The kidney measures 10.3 cm in maximum dimension. SPLEEN: Normal. The spleen measures 7.7 cm in maximum dimension. FREE FLUID: None. US/US abdomen comp w elastography IMPRESSION: The shear wave liver elastography reveals a median stiffness of 1.55 m/s (reference: normal median stiffness is 1.3 m/s or less). In the absence of other known clinical signs, this rules out compensated advanced chronic liver disease. REFERENCE: Society of Radiologists in Ultrasound Liver Stiffness Thresholds (2020): LIVER STIFFNESS THRESHOLDS: *Liver Stiffness equal or less than 1.3 m/s: High probability of being normal. *Liver Stiffness less than 1.7 m/s: In the absence of other known clinical signs, rules out compensated advanced chronic liver disease. *Liver Stiffness 1.7-2.1 m/s: Suggestive of compensated advanced chronic liver disease but need further test for confirmation. *Liver Stiffness over 2.1 m/s: Rules in compensated advanced chronic liver disease. *Liver Stiffness over 2.4 m/s: Suggestive of clinically significant portal hypertension. QUALITY OF DATA SET: *IQR/Median value equal or less than 0.15 implies a quality data set. *IQR/Median value over 0.15 implies a poor quality data set. OTHER CONSIDERATIONS: The stage of liver fibrosis may be overestimated in the setting of acute hepatitis, liver inflammation, elevated liver function tests, hepatic vascular congestion, obstructive cholestasis, non-fasting state, and infiltrative diseases such as amyloidosis and lymphoma. In some patients with NAFLD, the liver stiffness thresholds for compensated advanced chronic liver disease may be lower. In causes other than viral hepatitis and NAFLD, liver stiffness thresholds are not well established.
[2023-05-23 08:09] LABS: MANUAL DIFF FLAG NO
[2023-05-23 08:32] LABS: Basophils Absolute Auto 0.1 X10*3/uL (0.0-0.2); Basophils Percent Auto 0.9 % (0-2); Eosinophils Absolute Auto 0.5 X10*3/uL (0.0-0.4); Eosinophils Percent Auto 7.7 % (0-4); Hematocrit 39.8 % (37.0-47.0); Hemoglobin 13.2 g/dl (12.0-16.0); Imm Gran Abs Auto 0.01 X10*3/uL (0.00-0.03); Imm Gran Pct Auto 0.2 % (0.0-0.4); Lymphocytes Absolute Auto 2.8 X10*3/uL (1.2-4.9); Lymphocytes Percent Auto 42.6 % (20-40); Mean Corpuscular HGB Conc 33.2 g/dl (31.0-35.0); Mean Corpuscular Hemoglobin 31.1 pg (27.0-33.0); Mean Corpuscular Volume 93.6 fL (80.0-98.0); Mean Platelet Volume 9.4 fL (9.4-12.3); Monocytes Absolute Auto 0.4 X10*3/uL (0.1-1.2); Monocytes Percent Auto 6.6 % (2-11); Neutrophils Absolute Auto 2.8 x10*3/uL (2.0-8.3); Platelet Count 383 X10*3/uL (160-400); Red Blood Count 4.25 X10*6/uL (4.20-5.50); Red Cell Distribution Width 13.6 % (11.0-16.0); White Blood Count 6.5 X10*3/uL (4.8-10.8)
[2023-05-23 08:41] LABS: INTERNATIONAL NORM RATIO 0.8 (0.9-1.1); Prothrombin Time 10.2 SEC (11.1-13.3)
[2023-05-23 09:00] LABS: Alanine Aminotransferase 47 U/L (0-31); Albumin Level 4.2 g/dL (3.5-5.0); Alkaline Phosphatase 94 U/L (39-117); Aspartate Amino Transferase 40 U/L (5-31); Bilirubin Direct 0.2 mg/dL (0.0-0.5); Bilirubin Total 0.3 mg/dL (0.0-1.0); Total Protein 6.8 g/dL (6.5-8.0)
[2023-05-23 09:02] LABS: Alanine Aminotransferase 48 U/L (0-31); Albumin Level 4.2 g/dL (3.5-5.0); Alkaline Phosphatase 94 U/L (39-117); Anion Gap 14 (12-20); Aspartate Amino Transferase 40 U/L (5-31); Bilirubin Total 0.3 mg/dL (0.0-1.0); Blood Urea Nitrogen 12 mg/dL (9-16); Calcium 9.6 mg/dL (8.4-10.2); Carbon Dioxide 27 mmol/L (22-29); Chloride 106 mmol/L (96-108); Cholesterol 198 mg/dL (<200); Estimated Glomerular Filt Rate > 60; Glucose Fasting 99 mg/dL (60-99); HDL Cholesterol 67 mg/dL (>40); LDL Cholesterol Calculated 120 mg/dL (<100); Potassium 4.2 mmol/L (3.3-5.1); Sodium 143 mmol/L (135-145); Total Protein 6.8 g/dL (6.5-8.0); Triglycerides 59 mg/dL (<150)
[2023-05-23 09:40] LABS: Appearance Urine Clear; Color Urine Yellow; Glucose Urine UA Negative (Negative); Leukocyte Esterase Urine Negative (Negative); Nitrite Urine Negative (Negative); Specific Gravity - Urine 1.015 (1.005-1.025); Urine Blood Negative (Negative); Urine Ketones Negative (Negative); Urine Protein Negative (Neg-Trace)
[2023-05-23 09:47] LABS: Bacteria Urine Trace (None Seen); Hyaline Casts Urine 0-2 /LPF (0-2); RBC Urine 0-2 /HPF (0-2); Squamous Epithelial Cell Urine 0-2 /HPF (0-2); WBC Urine 0-5 /HPF (0-5)
[2023-05-26 12:58] LABS: Alpha Fetoprotein 2.8 ng/mL
[2023-05-31 18:07] LABS: FIB-ALT 42 U/L (6-29); FIB-Alpha-2-Macroglobulin 141 mg/dL (106-279); FIB-Apolipoprotein A1 198 mg/dL (101-198); FIB-GGT 33 U/L (3-70); FIB-Haptoglobin 137 mg/dL (43-212); FIB-Total Bilirubin 0.4 mg/dL (0.2-1.2); Liver Fibrosis Score 0.06; Liver Fibrosis Stage F0; Nec Inflam Act Grade A0-A1; Nec Inflam Act Score 0.17
== END 2023-05-23 07:54 | disposition home or self-care (01) ==
LOC: HO.US 07:53
PROVIDERS: PCP Internal Medicine; Visit Provider Internal Medicine
DX: Z00.00 Encounter for general adult medical examination without abnormal findings (principal); Z13.6 Encounter for screening for cardiovascular disorders; D72.820 Lymphocytosis (symptomatic); M54.50 Low back pain, unspecified; K74.3 Primary biliary cirrhosis
CPT/HCPCS: 36415; 76700; 76981; 80053; 80061; 80076; 81001; 81596; 82105; 82248; 85025; 85610

== ENCOUNTER 2023-10-17 08:53 | Outpatient (REF) | payer OTHER, SELFPAY ==
[2023-10-17 12:35] LABS: MANUAL DIFF FLAG NO
[2023-10-17 13:20] LABS: Basophils Absolute Auto 0.1 X10*3/uL (0.0-0.2); Eosinophils Absolute Auto 0.4 X10*3/uL (0.0-0.4); Hematocrit 40.5 % (37.0-47.0); Hemoglobin 13.6 g/dl (12.0-16.0); Imm Gran Abs Auto 0.03 X10*3/uL (0.00-0.03); Imm Gran Pct Auto 0.3 % (0.0-0.4); Lymphocytes Absolute Auto 3.8 X10*3/uL (1.2-4.9); Mean Corpuscular HGB Conc 33.6 g/dl (31.0-35.0); Mean Corpuscular Hemoglobin 31.9 pg (27.0-33.0); Mean Corpuscular Volume 95.1 fL (80.0-98.0); Mean Platelet Volume 9.5 fL (9.4-12.3); Monocytes Absolute Auto 0.5 X10*3/uL (0.1-1.2); Monocytes Percent Auto 6.2 % (2-11); Neutrophils Absolute Auto 3.9 x10*3/uL (2.0-8.3); Neutrophils Percent Auto 44.5 % (45-73); Platelet Count 391 X10*3/uL (160-400); Red Blood Count 4.26 X10*6/uL (4.20-5.50); Red Cell Distribution Width 13.2 % (11.0-16.0); White Blood Count 8.7 X10*3/uL (4.8-10.8)
[2023-10-17 13:52] LABS: Alanine Aminotransferase 18 U/L (0-31); Albumin Level 4.8 g/dL (3.5-5.0); Alkaline Phosphatase 97 U/L (39-117); Aspartate Amino Transferase 20 U/L (5-31); Bilirubin Direct 0.1 mg/dL (0.0-0.5); Bilirubin Total 0.3 mg/dL (0.0-1.0); C Reactive Protein < 0.10 mg/dL (< or = 0.50); Total Protein 7.7 g/dL (6.5-8.0)
[2023-10-17 14:02] LABS: Erythrocyte Sedimentation Rate 7 MM/HR (0-20)
== END 2023-10-17 08:54 | disposition home or self-care (01) ==
LOC: HO.MAMMO 08:53
PROVIDERS: Absent Provider Internal Medicine; PCP Physician Assistant Medical; Visit Provider Physician Assistant Medical
DX: K74.3 Primary biliary cirrhosis (principal); R19.7 Diarrhea, unspecified; Z12.31 Encounter for screening mammogram for malignant neoplasm of breast
CPT/HCPCS: 36415; 77063; 77067; 80076; 85025; 85652; 86140

== ENCOUNTER → 2023-10-17 09:00 | Outpatient (BNV) | payer OTHER, SELFPAY | PROVIDERS: Absent Provider Internal Medicine; PCP Physician Assistant Medical; Visit Provider Radiology Diagnostic Radiology | DX: Z12.31 Encounter for screening mammogram for malignant neoplasm of breast (principal) | CPT/HCPCS: 77063; 77067 ==

== ENCOUNTER 2023-10-27 15:44 | Outpatient (AMB) | payer OTHER, SELFPAY ==
--- NOTE | 2023-10-27 15:38 | MHC.PC.OV ---
Vital Signs 10/27/23 15:54 Height 4 ft 11.84 in Weight 134 lb 4 oz BMI 26.4 BP 122/82 Blood Pressure Location Lt brachial Position Sitting Respiration 14 Pulse 87 Pulse Source Pulse Oximeter Temp 98.2 F Temp Source Oral Pulse Oximetry (%) 97 Oxygen Delivery Method Room Air Intake Visit Reasons: [facility] not a transfer Intake Note: New patient visit Allergies No Known Allergies Allergy (Verified 10/27/23 15:39) Tobacco use date assessed: 10/27/23 Dental Screening Dental Screen Date: 10/27/23 Did you have a dental visit in the last 12 months?: Yes Did you have a dental problem in the last 6 months where you did not have access to dental care?: No Was dental information given to patient?: Patient has dentist HPI HPI Comments History of Present Illness Details This is a 58-year-old female with a past medical history of primary biliary cholangitis and hypertension presenting to [facility]. She transferred from Dr. Thornton. The patient was diagnosed with primary biliary cholangitis 2 years ago. She is followed by Dr. De Leon. She has a follow-up in 2 weeks. Recent LFTs normal. She had been struggling with pain in her right lower back and right hip for the past couple of years. She spoke recently with a pharmacist at [facility] about her medications, and they told her that this could be a side effect of Ursodiol. She stopped taking the morning dose but is taking 600 mg in the evening, and back pain has reduced by about 50%. She has not had x-rays. She describes the pain as moderate to severe. She has not had imaging. It does not radiate down the leg. There is no numbness or tingling in her legs or loss of bowel or bladder control associated with it. No history of trauma or prior surgeries. Mammogram up-to-date. She has an appointment for her annual gynecological exam in December this year. She had a colonoscopy in 2021, and she was instructed to repeat this in 10 years. Several years ago her [id number] was dying of pancreatic cancer. She was under a great deal of stress. 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 Her blood pressure was spiking so her primary care put her on valsartan-hydrochlorothiazide 80-12.5 mg daily. The patient is wondering if she can reduce or stop taking the medication. She is specifically interested in stopping the diuretic because she does not drink enough fluids admittedly during the day. She has a heart murmur on exam. Patient says it may have been present her whole life as her sister remembers it from her childhood. She had an echocardiogram on 12/21/2021 which demonstrated LVEF 68%, no wall motion abnormalities and trace tricuspid valve regurgitation. ROS: Constitutional: No unexplained weight loss, fever, chills, fatigue or night sweats. Respiratory: No shortness of breath Cardiovascular: No chest pain Gastrointestinal: No abdominal pain or vomiting Musculoskeletal: see HPI Skin: No rash or itching. Physical exam: Constitutional: Alert, in no distress. Neck: Supple, Full range of motion. No lymphadenopathy. Respiratory: Clear to auscultation. Cardiovascular: S1 S2 regular. I/ systolic murmur.. Neurologic: No focal neurological deficits. Musculoskeletal: Full range of motion of the hips and lumbosacral spine. Normal gait. Negative straight leg raises. Normal squatting. The right lumbosacral area is mildly tender to palpation. No hip joint crepitus. Extremities: Warm and well perfused. No clubbing, cyanosis or edema. 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 Polyarthralgia ORION positive Surgical History (Updated 08/13/21 @ 15:35 by Donya Askew RN) History of hand surgery Family History (Updated 10/28/23 @ 09:09 by WYATT Argueta) Sister Type 1 diabetes mellitus Social History (Updated 10/27/23 @ 15:54 by Deb Camejo CMA) Household Members: Spouse and Family Housing: House Are you a primary resident care manager rn to a significant other at home: No Do you presently have visiting nurse or other home services: No 75 years or older and lives alone: No Alcohol intake: current Alcohol intake frequency: does not drink Alcohol type: hard liquor Patient Tobacco Use Status: Never used Tobacco e-Cigarette/Vaping Use: Never Used Second Hand Smoke Exposure: No Substance Use Type: Marijuana service: No Current occupational status: employed 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 1. Little interest or pleasure in doing things: not at all 2. Feeling down, depressed, or hopeless: not at all 3. Trouble falling or staying asleep, or sleeping too much: nearly every day 4. Feeling tired or having little energy: not at all 5. Poor appetite or overeating: not at all 6. Feeling bad about yourself - or that you are a failure or have let yourself or your family down: not at all 7. Trouble concentrating on things, such as reading the newspaper or watching television: not at all 8. Moving or speaking so slowly that other people could have noticed. Or the opposite - being so fidgety or restless that you have been moving around a lot more than usual: not at all 9. Thoughts that you would be better off or of hurting yourself in some way: not at all Total score: 3 Depression Screening Interpretation: Negative Depression Screening Done: Yes 36864 - PHQ-9 Billing: Yes Source: Developed by Drs. Kevin Bustillos, Karen Black, Baldev Brink and colleagues, with an educational kiran from [email or web address]. Thrive Questionnaire Date Thrive assessed: 10/27/23 I am a: Patient What is your living situation today?: I have a steady place to live Within the past 12 months, did the food you bought not last and you didn't have the money to get more?: Never true Within the past 12 months, did you worry whether your food would run out before you got money to buy more?: Never true Do you have trouble paying for medicines?: No Do you have trouble getting transportation to medical appointments?: No Do you have trouble paying your heating and electricity bill?: No Do you have trouble taking care of your child, family member or friend?: No Do you have trouble with day-to-day activities such as bathing, preparing meals, shopping, managing finances, etc.?: No Are you currently unemployed and looking for a job?: No Are you interested in more education?: No Please select the resources that you would like help with: None Currently or been in a relationship where the following occur: No concerns reported THRIVE Score: 0 AUDIT C Alcohol Use Questionnaire (AUDIT-C) 1. How often do you have a drink containing alcohol?: Monthly or less (Once a year) 2. How many drinks containing alcohol do you have on a typical day when you are drinking?: 1 or 2 3. How often do you have six or more drinks on one occasion?: Never Total Score: 1 MORAIMA-7 AMB Questionnaire MORAIMA-7 Date MORAIMA - 7 assessed: 10/27/23 Feeling nervous, anxious, or on edge: 1 = Several days Not being able to stop or control worryin = More than half the days Worrying too much about different things: 1 = Several days Trouble relaxin = Not at all Being so restless that it is hard to sit still: 0 = Not at all Becoming easily annoyed or irritable: 0 = Not at all Feeling afraid as if something awful might happen: 0 = Not at all Total MORAIMA-7 score (0-4 normal; 5-9 mild; 10-14 moderate; 15-21 severe): 4 Source: Developed by Drs. Kevin Bustillos, Karen Black, Baldev Brink and colleagues, with an educational kiran from [email or web address]. MORAIMA-7 Assessment Billing MORAIMA-7 Assessment Tool: MORAIMA-7 Assessment 13383 Physical exam (Primary Care) Vital Signs: Last Vital Signs Temp 98.2 F 10/27/23 15:54 Pulse 87 10/27/23 15:54 Resp 14 10/27/23 15:54 BP 122/82 10/27/23 15:54 Pulse Ox 97 10/27/23 15:54 Oxygen Delivery Method Room Air 10/27/23 15:54 BMI result Body Mass Index 26.4 Tobacco/Smoking Status: Tobacco use Status Tobacco use date assessed 10/27/23 10/27/23 15:40 Patient Tobacco Use Status Never used Tobacco 10/27/23 15:54 e-Cigarette/Vaping Use Never Used 10/27/23 15:54 PHQ-9: PHQ-9 Score PHQ-9: Total score 3 10/27/23 16:37 Depression Screening Interpretation: Negative Thrive Assessment: Date of Thrive Assessment Date Thrive assessed 10/27/23 10/27/23 16:01 Currently or been in a relationship where the following occur: No concerns reported Assessment and Plan Assessment & Plan (1) Sclerosing cholangitis: Code(s): K83.09 - Other cholangitis Plan: The patient will discuss the medication at her follow-up with the cook cashier food prep in 2 weeks. (2) Low back pain: Code(s): M54.50 - Low back pain, unspecified Qualifiers: Chronicity: chronic Back pain laterality: right Sciatica presence: without sciatica Qualified Code(s): M54.50 - Low back pain, unspecified; G89.29 - Other chronic pain Plan: Patient's back pain improved after reducing dose of Ursodiol. She is going discussed the medication with her cook cashier food prep. Ordered x-ray of the hip and back. To consider physical therapy and/or referral to Orthopedics depending on results. (3) Hip pain, right: Code(s): M25.551 - Pain in right hip (4) Primary hypertension: Code(s): I10 - Essential (primary) hypertension Plan: Recommended low-sodium diet and avoidance of caffeine. Stop combination pill containing hydrochlorothiazide. Continue valsartan 80 mg daily for now. She will send me home readings via the patient portal in 1 month. We can consider decreasing valsartan depending on the blood pressure readings. Plan Follow-up in 6 months for med review. Orders: Orders XR hip RT w PEL1V 10/27/23 M25.551 - Pain in right hip, M54.50 - Low back pain, unspecified XR lumbar spine 2-3V 10/27/23 M25.551 - Pain in right hip, M54.50 - Low back pain, unspecified Medications: New valsartan 80 mg PO DAILY 30 tabs 0RF Coding Level of Care Code Est Pt Level 4 (39310) Complex EM visit Add On G2211 Diagnoses Sclerosing cholangitis K83.09 Chronic right-sided low back pain without sciatica M54.50; G89.29 Chronicity: chronic Back pain laterality: right Sciatica presence: without sciatica Hip pain, right M25.551 Primary hypertension I10 Additional Codes MORAIMA-7 Assessment Billing - MORAIMA-7 Assessment Tool: MORAIMA-7 Assessment 93840 ([id number])
[2023-10-27 15:54] VITALS: BP 122/82; PULSE 87; RESP 14; TEMP 36.8; O2SAT 97; BMI 26.4
== END 2023-10-27 16:34 | disposition home or self-care (01) ==
PROVIDERS: PCP Physician Assistant Medical; Visit Provider Physician Assistant Medical
DX: K83.09 Other cholangitis (principal); M54.50 Low back pain, unspecified; G89.29 Other chronic pain; M25.551 Pain in right hip; I10 Essential (primary) hypertension
CPT/HCPCS: 99214

== ENCOUNTER 2023-12-06 09:36 | Outpatient (REF) | payer OTHER, SELFPAY ==
--- NOTE | ~2023-12-06 | XR_ITS ---
EXAMINATION: XR LUMBOSACRAL SPINE CLINICAL INFORMATION: 58-year-old female with low back pain COMPARISON: None available. TECHNIQUE: Three views of the lumbosacral spine. FINDINGS: There is mild levoscoliosis with narrowing cough L1-L2 and L2-L3 intervertebral disc spaces with marginal spurring and subchondral sclerosis, more prominent at the level of L2-3 and mild flexion deformity of L1 vertebral body. Pedicles are preserved. Soft tissues unremarkable unremarkable in sacroiliac joints are normal XR/XR lumbar spine 2-3V IMPRESSION: Mild levoscoliosis and degenerative changes at the level of L2-L3. Possibly post fracture deformity of L1 Electronically signed by: Reshma Osborne MD 12/13/2023 06:43 PM EDT
--- NOTE | ~2023-12-06 | XR_ITS ---
EXAMINATION: XR HIP, RIGHT CLINICAL INFORMATION: Pain COMPARISON: None available. TECHNIQUE: Two views of the right hip. FINDINGS: No fracture. Alignment is anatomic. Hip joint space is maintained. Soft tissues are unremarkable. XR/XR hip RT w PEL1V IMPRESSION: Normal right hip. Electronically signed by: Reshma Osborne MD 12/13/2023 06:47 PM EDT RP
== END 2023-12-06 09:37 | disposition home or self-care (01) ==
LOC: HO.XRAY 09:36
PROVIDERS: PCP Physician Assistant Medical; Visit Provider Physician Assistant Medical
DX: M54.50 Low back pain, unspecified (principal); M25.551 Pain in right hip
CPT/HCPCS: 72100; 73502

== ENCOUNTER 2023-12-23 08:55 | Outpatient (AMB) | payer OTHER, SELFPAY ==
--- NOTE | 2023-12-23 09:04 | MHC.OFFVIS ---
Vital Signs 12/23/23 09:05 Height 5 ft 2 in Weight 136 lb BMI 24.9 Handedness Right Intake Visit Reasons: OV- RT thumb f/u Trig Rel 05/31/21 AR Intake Note: Sofía is a 55 year old right hand dominant female who presents today for a follow up s/p Right Thumb Trigger Finger Release done 05/31/[address] Barrios. Patient reports her thumb started to bothering her again 2 months ago. 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 She expresses brushing her teeth in the morning and it feeling odd and uncomfortable because her thumb stays locked in extension. Reports pain at her [facility] of right thumb occasionally when she has to lift object. Denies numbness and tingling. She is interested in OT if provider thinks it would be helpful. Allergies No Known Allergies Allergy (Verified 12/23/23 09:06) HPI HPI OV- RT thumb f/u Trig Rel 05/31/21 AR: Details: Sofía is a 58 year old right hand dominant woman who presents with complaints of right thumb pain. Pain is localized to just proximal to the right thumb MCP joint. She thinks it might be related to changes in her work over the last month where she is using a new mouse, and is on the computer more. 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 She also says she is caring for her sick father, sick dog, and her sister, who recently broke her rib and lost her . She has a Hx of a right trigger thumb release, DOS: 05/31/21. Prior to surgery she had difficulty fully bending her thumb, which improved to full ROM following her surgery. She also complains of some back pain, and says she is going for a bone density scan soon. She has a Hx of polyarthralgia. 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 Polyarthralgia ORION positive Surgical History History of hand surgery Family History Sister Type 1 diabetes mellitus Social History Household Members: Spouse and Family Housing: House Are you a primary medicare insurance specialist to a significant other at home: No Do you presently have visiting nurse or other home services: No 75 years or older and lives alone: No Alcohol intake: current Alcohol intake frequency: does not drink Alcohol type: hard liquor Patient Tobacco Use Status: Never used Tobacco e-Cigarette/Vaping Use: Never Used Second Hand Smoke Exposure: No Substance Use Type: Marijuana service: No Current occupational status: employed 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 Current occupational exposures/hazards: No Cognitive needs: No Hearing needs: No Vision needs: No Review of Systems Const All systems reviewed & are unremarkable except as noted in HPI and below Physical Exam Vital Signs: BMI result Body Mass Index 24.9 Const General: no acute distress and alert Orientation/consciousness: patient oriented x3 Neuro General: patient oriented x3 Extrem Other: Evaluation of Right Upper Extremity: The patient is alert, oriented, and in no acute distress Neuro: Median, Ulnar, Radial nerves motor and sensory intact and sensation is normal to the tips of all digits Vascular: Cap refill brisk ROM: She can make a fist and extend all her digits Full active thumb ROM without pain. She can now flex at the IP joint to about 80 degrees and bring it back into extension. This is a significant improvement compared with before her A1 candi release in 2021. No locking or catching. No tenderness over the A1 candi. Her discomfort is localized just proximal to the MCP joint of the right thumb along the radial aspect of the thenar mass and sometimes dorsally and ulnarly. Mild tenderness to palpation in the radial aspect of the thenar mass over the APB muscle belly. She says this is what tends to hurt her. Good active function of the APB Good active extension using APL EPL and EPB No pain with resisted thumb extension Not particularly tender over the MCP joint itself. Stable ulnar and radial collateral ligaments at the MCP joint. No redness or swelling Psych Appearance: grossly normal Affect: normal affect Attitude: cooperative Assessment & Plan Assessment & Plan (1) Strain of intrinsic muscle of right thumb: Code(s): S66.411A - Strain of intrinsic muscle, fascia and tendon of right thumb at wrist and hand level, initial encounter Category: Medical (2) Polyarthralgia: Code(s): M25.50 - Pain in unspecified joint Category: Medical Plan Assessment & Plan: 1. Right thumb APB muscle strain Secondary to using a new mouse & overuse Onset ~4-6 weeks I educated her about this condition I discuss non-operative treatment options I recommend activity modification, and bracing She should limit or avoid activities which cause her pain, or overuse of her thumb where possible She was fitted for a comfort cool brace to wear with daily activity, when symptomatic. She should remove this when at rest She will also try using a new mouse at work. She can follow up prn 2. Right trigger thumb, S/P release DOS: 05/31/21 Resolved. Scribed for Elena Barrios MD by Billy Ca, diagnostic medical sonographer, on 12/23/23 at 9:20 AM, EST. Coding Level of Care Code Est Pt Level 3 (78014) Diagnoses Strain of intrinsic muscle of right thumb S66.411A Polyarthralgia M25.50
[2023-12-23 09:05] VITALS: BMI 24.9
== END 2023-12-23 09:32 | disposition home or self-care (01) ==
PROVIDERS: PCP Physician Assistant Medical; Visit Provider Orthopaedic Surgery
DX: S66.411A Strain of intrinsic muscle, fascia and tendon of right thumb at wrist and hand level, initial encounter (principal); M25.50 Pain in unspecified joint
CPT/HCPCS: 99213

== ENCOUNTER → 2023-12-23 08:55 | Outpatient (BNVA) | payer OTHER, SELFPAY | PROVIDERS: PCP Physician Assistant Medical; Visit Provider Orthopaedic Surgery ==

== ENCOUNTER 2024-01-02 08:40 | Outpatient (REF) | payer OTHER, SELFPAY ==
--- NOTE | ~2024-01-02 | MM_ITS ---
EXAMINATION: BONE DENSITOMETRY CLINICAL INDICATION: Menopause. COMPARISON: This is the patient's baseline examination. TECHNIQUE: Using a Creww DXA System (software version: 13.1) manufactured by [employer], dual-energy x-ray absorptiometry was performed of the lumbar spine and left hip. The images are of good technical quality. Summary results are attached. FINDINGS: LEFT FEMUR, NECK: BMD 0.742 g/cm2, Z-score -0.9, T-score -2.1, osteopenia. LEFT FEMUR, TOTAL: BMD 0.703 g/cm2, Z-score -1.5, T-score -2.4, osteopenia. AP SPINE L1-L4 (excluding L2 and L3): The data of L1-L4 has been changed to exclude the L2 and L3 vertebral bodies, because significant degenerative change at these levels may cause overestimation of lumbar spine density. BMD 0.801 g/cm2, Z-score -1.8, T-score -3.0, osteoporosis. IDENTIFIED RISK FACTORS: Menopause, low calcium intake, history of fracture (adult), thiazide, secondary osteoporosis (chronic liver disease). HISTORY OF FRACTURE: Spine. MEDICATIONS: Calcium, vitamin D. MM/XR DEXA axial skeleton IMPRESSION: 1. DIAGNOSIS: Severe osteoporosis based on the lowest T-score value of -3.0 in the lumbar spine and history of fracture of spine applying World Health Organization criteria. 2. 10-YEAR FRACTURE RISK PREDICTION, FRAX: According to the guidelines, FRAX calculation should only be performed on patients in the osteopenia bone density category. Therefore, FRAX was not performed on this patient. 3. Treatment Recommendations: NOF guidelines recommend consideration for treatment in postmenopausal women and men age 50 and older presenting with the following: -A hip or vertebral (clinical or morphometric) fracture. -T-score less than or equal to -2.5 at the femoral neck or spine after appropriate evaluation to exclude secondary causes. -Low bone mass at the hip or spine and a 10-year fracture probability by FRAX of greater than or equal to 3% for hip fracture or greater than or equal to 20% for major osteoporotic fracture based on the [place] adapted WHO algorithm. 4. Other Recommendations: All treatment decisions require clinical judgment and consideration of individual patient factors, including patient preferences, comorbidities, previous drug use, risk factors not captured in the FRAX model (e.g. frailty, falls, vitamin D deficiency, increased bone turnover, interval significant decline in bone density) and possible under or overestimation of fracture risk by FRAX. Additional medical evaluation for secondary cause of low bone mineral density may be appropriate. FUTURE SCAN RECOMMENDATION: People with diagnosed cases of osteoporosis or at high risk for fracture should have regular bone mineral density tests. For patients eligible for Medicare, routine testing is allowed once every 2 years. The testing frequency can be increased to one year for patients who have rapidly progressing disease, those who are receiving or discontinuing medical therapy to restore bone mass, or have additional risk factors. Electronically signed by: Margy Kohli MD 01/05/2024 12:02 PM EDT RP
== END 2024-01-02 08:41 | disposition home or self-care (01) ==
LOC: HO.MAMMO 08:40
PROVIDERS: PCP Physician Assistant Medical; Visit Provider Physician Assistant Medical
DX: N95.1 Menopausal and female climacteric states (principal); S32.010A Wedge compression fracture of first lumbar vertebra, initial encounter for closed fracture
CPT/HCPCS: 77080

== ENCOUNTER 2024-01-05 08:00 | Outpatient (RCR) | payer OTHER, SELFPAY ==
--- NOTE | 2024-01-02 14:34 | MHC.PT.EP ---
[facility] [place] Office [place] [facility] [place] [facility] [address] Oswaldo Mirza [address] [phone] F: [phone] F: [phone] F: [phone] F: [phone] Physical Therapy Plan of Care Date of Evaluation: 01/02/24 Date of Surgery: N/A Diagnosis: lower back pain (RL) Assessment: pt is a 58 y/o female presenting to physical therapy w/ referring diagnosis of lower back pain. I am suspicious of R SI dysfunction given her symptoms and activity limitations. Impairments include pain, decreased range of motion, decreased strength, impaired functional mobility, impaired postural awareness, and altered ambulation mechanics. pt is a good candidate for skilled PT due to age, potential remediation of impairments, typical disease/condition progression and prognosis, comorbidities, and motivation. pt would benefit from skilled PT intervention to provide a tailored strengthening and stretching exercise program, functional training, gait training, postural re-training, neuromuscular re-education, modalities as needed for pain, equipment safety demonstration. Frequency and Duration: The patient will be seen 2x/wk for 5 wks Short Term Goals: pt will be I w/ HEP to promote self-management of condition. pt will demo proper sitting posture w/ lumbar roll to promote neutral spine w/ seated ADLs. [facility] Goals: pt will demo proper lifting mechanics for patient/client transfers to promote ease in caretaking for her elderly parents. pt will report a statistically significant improvement in self-reported outcome measure, Ani, to promote return to PLOF. Treatment Plan: Modalities to reduce pain, spasms and effusion. Manual therapy to restore motion and function. Therapeutic exercise to improve strength and flexibility. Neuromuscular re-education for posture and balance. Therapeutic activities to return to functional activities of daily living. Electronically signed by: Anabell Chamorro PT, DPT Please sign and return to therapist. Thank you for your referral.
--- NOTE | 2024-01-19 15:28 | MHC.PT.DC ---
[facility] [place] Office [place] Office [place] Office [address] Oswaldo Mirza [address] [facility] [phone] F: [phone] F: [phone] F: [phone] F: [phone] Physical Therapy Discharge Report Diagnosis: lower back pain (RL) Date of Surgery: N/A Date of Evaluation: 01/02/24 Date of Discharge: 01/19/24 Treatments to Date: 2 Cancellations to Date: 0 No Shows to Date: 0 Discharge Status: Patient Elected to Stop Discharge Summary: The patient called to discharge herself from PT due to personal family matter. She is discharged per her request. The patient only attended the initial evaluation and one treatment session. Electronically signed by: Anabell Chamorro PT, DPT Please sign and return to therapist. Thank you for your referral.
== END 2024-01-19 15:28 | disposition home or self-care (01) ==
LOC: HO.PT 08:00
PROVIDERS: PCP Physician Assistant Medical; Visit Provider Physician Assistant Medical
DX: S32.010A Wedge compression fracture of first lumbar vertebra, initial encounter for closed fracture (principal); M43.06 Spondylolysis, lumbar region; M54.50 Low back pain, unspecified
CPT/HCPCS: 97112; 97140; 97162

== ENCOUNTER 2024-01-23 15:17 | Outpatient (REF) | payer OTHER, SELFPAY ==
[2024-01-23 16:02] LABS: Anion Gap 17 (12-20); Blood Urea Nitrogen 16 mg/dL (9-16); Calcium 10.7 mg/dL (8.4-10.2); Carbon Dioxide 29 mmol/L (22-29); Chloride 103 mmol/L (96-108); Estimated Glomerular Filt Rate > 60; Glucose Random 107 mg/dL (60-115); Potassium 3.6 mmol/L (3.3-5.1); Sodium 145 mmol/L (135-145)
[2024-01-23 16:18] LABS: TSH reflex Free T4 2.21 uIU/mL (0.32-4.0)
[2024-01-28 13:08] LABS: VITAMIN D (1,25 OH) D3 47 pg/mL; Vit D (1,25-Dihydroxy) Total 47 pg/mL (18-72); Vitamin D (1,25 OH) D2 <8 pg/mL
== END 2024-01-23 15:18 | disposition home or self-care (01) ==
LOC: HO.LAB 15:17
PROVIDERS: PCP Physician Assistant Medical; Visit Provider Physician Assistant Medical
DX: M81.0 Age-related osteoporosis without current pathological fracture (principal)
CPT/HCPCS: 36415; 80048; 82652; 84443

== ENCOUNTER → 2024-01-29 11:58 | Outpatient (BNV) | payer OTHER, SELFPAY ==
--- NOTE | 2024-01-29 11:58 | A.OFFVIS_ITS ---
Intake Visit Reasons: Amb Documentation Allergies No Known Allergies Allergy (Verified 12/23/23 09:06) HPI Comments Details: This is a 58-year-old female with a past medical history of newly diagnosed osteoporosis, lower back pain, hypertension and sclerosing cholangitis presenting to review her test results. She has already been notified on the portal that she was diagnosed with osteoporosis. She had a mild compression fracture at L1 on imaging which prompted her bone density exam. Following this she talked with her family members, and many family members have osteopenia and osteoporosis. She does not drink alcohol. She does not smoke. Patient says her diet is not good. She also does not drink a lot of water. On her lab results she has a normal vitamin-D level, and her calcium level was mildly elevated. Patient says she has been taking calcium 600 mg twice daily, vitamin-D 2000 units once a day, multivitamin containing 300 mg of calcium, and biotin supplements that contain more vitamins. She stopped taking them after she saw the results. She is also on hydrochlorothiazide. She was not able to do physical therapy because her father , and she used all of her time off. She was given physical therapy exercises, and she is doing yoga. 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 Polyarthralgia ORION positive Surgical History History of hand surgery Family History Sister Type 1 diabetes mellitus Social History Household Members: Spouse and Family Housing: House Are you a primary career law clerk to a significant other at home: No Do you presently have visiting nurse or other home services: No 75 years or older and lives alone: No Alcohol intake: current Alcohol intake frequency: does not drink Alcohol type: hard liquor Patient Tobacco Use Status: Never used Tobacco e-Cigarette/Vaping Use: Never Used Second Hand Smoke Exposure: No Substance Use Type: Marijuana service: No Current occupational status: employed 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 Current occupational exposures/hazards: No Cognitive needs: No Hearing needs: No Vision needs: No Telehealth Telehealth Telehealth Platform: Telephone Location of provider rendering services: practice address Location of patient: address on file Patient Identification confirmed using: Name, : Yes Telehealth method: voice only Patient verbally consented to treatment: Yes Patient verbally consented to billing insurance company: Yes Patient informed of any privacy concerns related to visit: Yes Minutes spent on Phone/Video with Pt.: 14 Assessment & Plan Assessment & Plan (1) Osteoporosis: Code(s): M81.0 - Age-related osteoporosis without current pathological fracture Category: Medical (2) Serum calcium elevated: Code(s): E83.52 - Hypercalcemia Plan She can restart vitamin-D 2000 units daily. Restart calcium 600 mg only 1 tablet daily. She can restart her multivitamin. Remain off biotin. Repeat calcium level in 2 weeks. Once calcium normalizes our plan is to initiate Fosamax 70 mg once weekly for treatment of osteoporosis. We reviewed administration and potential side effects. Weightbearing exercise encouraged. Bone density exam will be repeated in 2 years. Coding Level of Care Code Tele Est Pt Level 3 (03279) Complex EM visit Add On G2211 Diagnoses Osteoporosis M81.0 Serum calcium elevated E83.52
== END ==
PROVIDERS: PCP Physician Assistant Medical; Visit Provider Physician Assistant Medical
DX: M81.0 Age-related osteoporosis without current pathological fracture (principal); E83.52 Hypercalcemia
CPT/HCPCS: 99213

== ENCOUNTER 2024-04-22 12:44 | Outpatient (REF) | payer OTHER, SELFPAY ==
[2024-04-22 13:43] LABS: Calcium 9.7 mg/dL (8.4-10.2)
== END 2024-04-22 12:45 | disposition home or self-care (01) ==
LOC: HO.LAB 12:44
PROVIDERS: PCP Physician Assistant Medical; Visit Provider Physician Assistant Medical
DX: E83.52 Hypercalcemia (principal)
CPT/HCPCS: 36415; 82310

== ENCOUNTER 2024-05-03 15:08 | Outpatient (AMB) | payer OTHER, SELFPAY ==
[2024-05-03 15:10] VITALS: BP 122/82; PULSE 87; O2SAT 95; BMI 25.0
--- NOTE | 2024-05-03 15:10 | A.OFFPC_ITS ---
Vital Signs 05/03/24 15:10 Height 5 ft 2 in Weight 136 lb 8 oz BMI 25.0 BP 122/82 Blood Pressure Location Lt brachial Position Sitting Pulse 87 Pulse Source Pulse Oximeter Pulse Oximetry (%) 95 Oxygen Delivery Method Room Air Intake Visit Reasons: med review Allergies No Known Allergies Allergy (Verified 05/03/24 15:13) Medication List - Last Reconciled 05/03/24 by WYATT Argueta alendronate (Fosamax) 70 mg PO QWEEK aspirin (Adult Low Dose Aspirin) 81 mg PO DAILY cholecalciferol (vitamin D3) 50 mcg PO DAILY colchicine mg PO ursodiol 600 mg PO BID valsartan-hydrochlorothiazide 80-12.5 mg 1 tab PO DAILY Tobacco use date assessed: 05/03/24 Dental Screening Dental Screen Date: 05/03/24 Did you have a dental visit in the last 12 months?: Yes Did you have a dental problem in the last 6 months where you did not have access to dental care?: No Was dental information given to patient?: Patient has dentist HPI HPI Comments History of Present Illness Details This is a 58-year-old female with a past medical history osteoporosis, lower back pain, hypertension and sclerosing cholangitis presenting for follow up. Osteoporosis-she did not start Fosamax yet, but she picked it up from the pharmacy. She is on a multivitamin that contains calcium and a vitamin-D supplement. She does not smoke or drink alcohol. She had a mild compression fracture at L1 on imaging which prompted her bone density exam. Following this she talked with her family members, and many family members have osteopenia and osteoporosis. She still wants to do physical therapy for her back and neck pain. but she wants to go to another location rather than [facility] I gave her the requisition for this today. Sometimes she takes her 's gabapentin which helps because Tylenol does not help. She does not want to undergo further diagnostic imaging or referral to pain management or a specialist at this time. She is taking valsartan 80-hydrochlorothiazide 12.5 mg daily for blood pressure. Today it is 122/82. She admits she stopped it for a few days, but she restarted it. Patient also would like me to check a lump on the right chest that has been there for several years. She says she was having mammograms done at [facility], and they always commented on this as being stable. It was thought to possibly be a lymph node. It has not changed, but it was not commented on the mammogram done 10/17/2023 at [facility] so she wanted to mention it. ROS: Constitutional: No unexplained weight loss, fever, chills, fatigue or night sweats. Eyes: No vision changes, blurry vision, double vision, eye pain, eye redness, eye discharge. Respiratory: No shortness of breath Cardiovascular: No chest pain Gastrointestinal: No anorexia, nausea, vomiting or diarrhea. No abdominal pain Skin: No rash Physical exam: Constitutional: Alert, in no distress. Head: Normocephalic. Eyes: Pupils are equal, round and reactive to light. Extraocular muscles intact. Ear, Nose and Throat: Canals clear. TMs normal. Normal nasal mucosa. No nasal discharge. No oral lesions. Neck: Supple, Full range of motion. No lymphadenopathy. No palpable thyroid masses. Respiratory: Clear to auscultation. Cardiovascular: S1 S2 regular. II/ systolic murmur (echo 2021 done for evaluation of the murmur, trace tricuspid regurgitation) Gastrointestinal: Abdomen soft, non-tender, non-distended. Normal bowel sounds. No palpable masses. 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 Polyarthralgia ORION positive Surgical History History of hand surgery Family History Sister Type 1 diabetes mellitus Social History Household Members: Spouse and Family Housing: House Are you a primary resident care spec to a significant other at home: No Do you presently have visiting nurse or other home services: No 75 years or older and lives alone: No Alcohol intake: current Alcohol intake frequency: does not drink Alcohol type: hard liquor Patient Tobacco Use Status: Never used Tobacco e-Cigarette/Vaping Use: Never Used Second Hand Smoke Exposure: No Substance Use Type: Marijuana service: No Current occupational status: employed 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 1. Little interest or pleasure in doing things: not at all 2. Feeling down, depressed, or hopeless: not at all 3. Trouble falling or staying asleep, or sleeping too much: not at all 4. Feeling tired or having little energy: not at all 5. Poor appetite or overeating: not at all 6. Feeling bad about yourself - or that you are a failure or have let yourself or your family down: not at all 7. Trouble concentrating on things, such as reading the newspaper or watching television: not at all 8. Moving or speaking so slowly that other people could have noticed. Or the opposite - being so fidgety or restless that you have been moving around a lot more than usual: not at all 9. Thoughts that you would be better off or of hurting yourself in some way: not at all Total score: 0 Source: Developed by Drs. Kevin Bustillos, Karen Black, Baldev Brink and colleagues, with an educational kiran from [employer]. Thrive Questionnaire Date Thrive assessed: 05/03/24 I am a: Patient What is your living situation today?: I have a steady place to live Within the past 12 months, did the food you bought not last and you didn't have the money to get more?: Sometimes True Within the past 12 months, did you worry whether your food would run out before you got money to buy more?: Sometimes True Do you have trouble paying for medicines?: No Do you have trouble getting transportation to medical appointments?: No Do you have trouble paying your heating and electricity bill?: No Do you have trouble taking care of your child, family member or friend?: No Do you have trouble with day-to-day activities such as bathing, preparing meals, shopping, managing finances, etc.?: No Are you currently unemployed and looking for a job?: No Are you interested in more education?: No Please select the resources that you would like help with: None Currently or been in a relationship where the following occur: No concerns reported THRIVE Score: 2 AUDIT C Alcohol Use Questionnaire (AUDIT-C) 1. How often do you have a drink containing alcohol?: Never 3. How often do you have six or more drinks on one occasion?: Never Total Score: 0 MORAIMA-7 AMB Questionnaire MORAIMA-7 Date MORAIMA - 7 assessed: 05/03/24 Feeling nervous, anxious, or on edge: 1 = Several days Not being able to stop or control worryin = Several days Worrying too much about different things: 1 = Several days Trouble relaxin = Several days Being so restless that it is hard to sit still: 0 = Not at all Becoming easily annoyed or irritable: 1 = Several days Feeling afraid as if something awful might happen: 0 = Not at all Total MORAIMA-7 score (0-4 normal; 5-9 mild; 10-14 moderate; 15-21 severe): 5 Source: Developed by Drs. Kevin Bustillos, Karen Black, Baldev Brink and colleagues, with an educational kiran from [employer]. Physical exam (Primary Care) Vital Signs: Last Vital Signs Pulse 87 05/03/24 15:10 BP 122/82 05/03/24 15:10 Pulse Ox 95 05/03/24 15:10 Oxygen Delivery Method Room Air 05/03/24 15:10 BMI result Body Mass Index 25.0 Tobacco/Smoking Status: Tobacco use Status Tobacco use date assessed 05/03/24 05/03/24 15:17 Patient Tobacco Use Status Never used Tobacco 05/03/24 15:17 e-Cigarette/Vaping Use Never Used 05/03/24 15:17 PHQ-9: PHQ-9 Score PHQ-9: Total score 0 05/03/24 15:17 Thrive Assessment: Date of Thrive Assessment Date Thrive assessed 05/03/24 05/03/24 15:17 Currently or been in a relationship where the following occur: No concerns reported Coding Level of Care Code Tele Est Pt Level 5 (86464) Complex EM visit Add On G2211 Diagnoses Lump of breast, right N63.10 Lumbar spondylolysis M43.06 Cervicalgia M54.2 Osteoporosis M81.0 Primary hypertension I10 Sclerosing cholangitis K83.09 Assessment & Plan Assessment & Plan (1) Lump of breast, right: Code(s): N63.10 - Unspecified lump in the right breast, unspecified quadrant Category: Medical Plan: Differential includes lipoma, cyst, fibroadenoma and less likely malignancy based on duration of symptoms and prior characterization on mammogram per patient. We will obtain diagnostic mammo and ultrasound to confirm this is a benign finding. (2) Lumbar spondylolysis: Code(s): M43.06 - Spondylolysis, lumbar region Category: Medical Plan: Advised she can use gabapentin 300 mg 3 times daily as needed for pain. Side effects reviewed. Advised patient not to drive or operate heavy machinery if she experiences sedation or drowsiness. She is going to try physical therapy. She defers further imaging or referral to specialist at this time. (3) Cervicalgia: Code(s): M54.2 - Cervicalgia Category: Medical Plan: See 2. (4) Osteoporosis: Code(s): M81.0 - Age-related osteoporosis without current pathological fracture Category: Medical Plan: Recommended weight-bearing exercise, avoidance of smoking and alcohol. She is going to start Fosamax. Repeat bone density 2 years after initial study. Continue calcium and vitamin-D supplementation. (5) Primary hypertension: Code(s): I10 - Essential (primary) hypertension Category: Medical Plan: Continue valsartan-hydrochlorothiazide. She is still having to 5 hour energy drinks per day. Recommended decreasing caffeine consumption. Follow a low- sodium diet. (6) Sclerosing cholangitis: Code(s): K83.09 - Other cholangitis Category: Medical Plan: Continue management per Gastroenterology. Plan Schedule a physical exam in 10/27/2024. Orders: Orders US breast RT limited Today N63.10 - Unspecified lump in the right breast, unspecified quadrant MM diagnostic mammo unilat RT Today N63.10 - Unspecified lump in the right breast, unspecified quadrant Medications: New valsartan-hydrochlorothiazide 80-12.5 mg 1 tab PO DAILY 90 tabs 3RF multivitamin 1 tab PO QAM gabapentin 300 mg PO TID PRN 90 caps 0RF pain
--- OUTSIDE RECORDS SUMMARY | 2024-05-03 17:27 | XMS_ITS | Patient Health Record ---
Author Organization Dale Thornton MD Address [address] [place], [place] [id number] Care Team Providers Care Health Companion Name Role Phone Dale Thornton Primary Care Provider Allergies No Known Allergies Results Component Value Reference Range Notes US abdomen comp w elastograp hy Reviewed date:05/30/2023 12:47:13 PM Interpretation: Performing Lab: Notes/Report: [address] [address] Ultrasound Report Signed Patient: Sofía Carlin MR#: [id number] 54 : 1965 Acct:[id number] Age/Sex: 57 / F ADM Date: 05/23/23 Loc: HO.US Attending Dr: Kevin De Leon MD Ordering Physician: Kevin De Leon Date of Service: 05/23/23 Procedure(s): US abdomen comp w elastography Accession Number(s): [id number] cc: Dale Thornton MD; Kevin De Leon EXAMINATION: US COMPLETE ABDOMEN WITH LIVER ELASTOGRAPHY CLINICAL INFORMATION: History of primary biliary cholangitis. COMPARISON: None available. TECHNIQUE: Real-time imaging of the abdominal viscera. Noninvasive ultrasound liver fibrosis assessment is performed using [employer]ber[employer] ElastPQ point quantification shear wave elastography (2D-SWE) with a C5-2 MHz transducer. Multiple elastography samples are obtained. FINDINGS: PANCREAS: Normal. ABDOMINAL AORTA: The proximal, middle, and distal aortic segments are normal in caliber. INFERIOR VENA CAVA: Visualized portions are normal. LIVER: Liver has normal size and contour. The parenchyma is slightly heterogeneous. There appears to be slightly coarsened parenchymal echotexture. No focal liver lesion or intrahepatic ductal dilatation. The right lobe measures 17.8 cm in length. The left lobe measures 10 cm in length. Portal flow is normal. Shear wave liver elastography median stiffness is 1.55 m/s (reference: normal median stiffness is 1.3 m/s or less). IQR/median stiffness to assess sampling precision is 0.17 (reference: good quality data set is IQR/median stiffness of 0.15 or less). GALLBLADDER: Normal. The gallbladder is physiologically distended without evidence of stones, sludge, polyps, wall thickening or pericholecystic fluid. COMMON BILE DUCT: Normal in caliber measuring 0.6 cm in diameter. RIGHT KIDNEY: Normal. No hydronephrosis. No renal calculi or focal parenchymal lesions. The kidney measures 10.4 cm in maximum dimension. LEFT KIDNEY: Normal. No hydronephrosis. No renal calculi or focal parenchymal lesions. The kidney measures 10.3 cm in maximum dimension. SPLEEN: Normal. The spleen measures 7.7 cm in maximum dimension. FREE FLUID: None. US/US abdomen comp w elastography IMPRESSION: The shear wave liver elastography reveals a median stiffness of 1.55 m/s (reference: normal median stiffness is 1.3 m/s or less). In the absence of other known clinical signs, this rules out compensated advanced chronic liver disease. REFERENCE: Society of Radiologists in Ultrasound Liver Stiffness Thresholds (2020): LIVER STIFFNESS THRESHOLDS: *Liver Stiffness equal or less than 1.3 m/s: High probability of being normal. *Liver Stiffness less than 1.7 m/s: In the absence of other known clinical signs, rules out compensated advanced chronic liver disease. *Liver Stiffness 1.7-2.1 m/s: Suggestive of compensated advanced chronic liver disease but need further test for confirmation. *Liver Stiffness over 2.1 m/s: Rules in compensated advanced chronic liver disease. *Liver Stiffness over 2.4 m/s: Suggestive of clinically significant portal hypertension. QUALITY OF DATA SET: *IQR/Median value equal or less than 0.15 implies a quality data set. *IQR/Median value over 0.15 implies a poor quality data set. OTHER CONSIDERATIONS: The stage of liver fibrosis may be overestimated in the setting of acute hepatitis, liver inflammation, elevated liver function tests, hepatic vascular congestion, obstructive cholestasis, non-fasting state, and infiltrative diseases such as amyloidosis and lymphoma. In some patients with NAFLD, the liver stiffness thresholds for compensated advanced chronic liver disease may be lower. In causes other than viral hepatitis and NAFLD, liver stiffness thresholds are not well established. 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 COMPARISON: None available. TECHNIQUE: Real-time imaging of the abdominal viscera. Noninvasive ultrasound liver fibrosis asses sment is performed using Herberth ElastPQ point quantification shear wave elastography (2D-SWE) with a C5-2 MHz transducer. Multiple elastography samples are obtained. FINDINGS: PANCREAS: Normal. ABDOMINAL AORTA: The proximal, middle, and distal aortic segments are normal in caliber. INFERIOR VENA CAVA: Visualized portions are normal. LIVER: Liver has nor mal size and contour. The parenchyma is slightly heterogeneous. There appears to be slightly coarsened parenchymal echotexture. No foca l liver lesion or intrahepatic ductal dilatation. The right lobe measu res 17.8 cm in length. The left lobe measures 10 cm in length. Portal flow is normal. Shear wave liver pj stography median stiffness is 1.55 m/s (reference: normal median stiffn ess is 1.3 m/s or less). IQR/median stiffness to assess sampling precision is 0.17 (reference: good quality data se t is IQR/median stiffness of 0.15 or less). GALLBLADDER: Normal. The gallbladder is physiologically distended without evidence of stones, sludge, polyps, wall thickening or pericholecystic fluid. COMMON BILE DUCT: No rmal in caliber measuring 0.6 cm in diameter. RIGHT KIDNEY: Normal . No hydronephrosis. No renal calculi or focal parenchymal lesions. The kidney measures 10.4 cm in maximum dimension. LEFT KIDNEY: Normal. No hydronephrosis. No renal calculi or focal parenchymal lesions. The kidney measures 10.3 cm in maximum dimension. SPLEEN: Normal. The spleen measures 7.7 cm in maximum dimension. FREE FLUID: None. U S/US abdomen comp w elastography IMPRESSION: The shear wave liver elastography reveals a median stiffness of 1.55 m/s (reference: norm al median stiffness is 1.3 m/s or less). In the absence of other kno wn clinical signs, this rules out compensated advanced chronic liver disease. REFERENCE: Society of Radiologi sts in Ultrasound Liver Stiffness Thresholds (2019): LIVER STIFFNESS THRESHOLDS: *Liver Stiffness equ al or less than 1.3 m/s: High probability of being normal. *Liver Stiffness les s than 1.7 m/s: In the absence of other known clinical signs, rule s out compensated advanced chronic liver disease. *Liver Stiffness 1.7 -2.1 m/s: Suggestive of compensated advanced chronic liver diseas e but need further test for confirmation. *Liver Stiffness ove r 2.1 m/s: Rules in compensated advanced chronic liver disease. *Liver Stiffness ove r 2.4 m/s: Suggestive of clinically significant portal hypertension. QUALITY OF DATA SET: *IQR/Median value eq ual or less than 0.15 implies a quality data set. *IQR/Median value ov er 0.15 implies a poor quality data set. OTHER CONSIDERATIONS: The stage of liver f ibrosis may be overestimated in the setting of acute hepatitis, maria del carmen er inflammation, elevated liver function tests, hepatic vascular con gestion, obstructive cholestasis, non-fasting state, and infiltrat lamonte diseases such as amyloidosis and lymphoma. In some patients with N AFLD, the liver stiffness thresholds for compensated advanced chronic liver disease may be lower. In causes other than viral hep atitis and NAFLD, liver stiffness thresholds are not well established. 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: PD Reason For Referral No Information Medications Medication SIG (Take, Route, Frequency, Duration) Notes Start Date End Date Status Milk Thistle 175 MG as directed Orally Not-Taking LORazepam 0.5 MG 1 tablet at bedtime as needed Orally Once a day as needed for 30 days 04/11/2022 Not-Taking Scopolamine 1 MG/3DAYS one oatch to skin behind ear Transdermal every 3 days for 10 days 03/27/2023 Active Valsartan-hydroCHLOROthi azide 80-12.5 MG TAKE 1 TABLET BY MOUTH ONCE DAILY for 90 Active Ursodiol 300 MG 2 capsule Orally Twi ce a day Active Colchicine 0.6 MG 1 capsule Orally bid Active Aspir-Low 81 MG 1 tablet Orally Once a day for 30 day(s) Active Vitamin D 50 MCG (1999 UT) 1 tablet Orally Once a day for 30 day(s) Active Immunizations Vaccine Route Administration Date Status Comme nts SARS-COV-2 Pfizer Unknown 02/25/2020 Administered SARS-COV-2 Pfizer Unknown 03/17/2020 Administered SARS-COV-2 Pfizer Unknown 12/08/2020 Administered Fluarix Quadrivalent Unknown 01/02/2021 Administered Fluarix Quadrivalent Unknown 12/25/2021 Administered Social History Tobacco Use: Social History Observation Description Date Details (start date - stop date) Never Smoker NA - NA Tobacco Use/Smoking Question Answer Notes Patient is a nonsmoker Additional Findings: Tobacco Non-User Cu rrent non-smoker, currently using no form of tobacco Alcohol Screen Question Answer Notes Did you have a drink containing alcohol in the p ast year? No Points 0 Interpretation Negative Problems Problem Type SNOMED Code ICD Code Onset Dates Problem Status W/U Status Risk Notes Problem Lymphocytosis (71988789) Lymphocytosis (D72.820) Active confirmed Problem 89479558 Anxiety (F41.9) Active confirmed Problem 97380299 Subcutaneous nodule (R22.9) Active confirmed Problem Dysthymia (07051384) Dysthymia (F34.1) Active confirmed Problem Cholangitis (13244696) Other cholangitis (K83.09) Active confirmed Vital Signs Blood pressure diastolic 60 mm Hg 05/26/2023 eig ht is down 14 pounds since 06-27-22 Height 61 in 05/26/2023 eight is down 1 4 pounds since 06-27-22 Blood pressure systolic 124 mm Hg 05/26/2023 eigh t is down 14 pounds since 06-27-22 Weight 139 lbs 05/26/2023 eight is down 1 4 pounds since 06-27-22 BMI 26.26 kg/m2 05/26/2023 eight is down 1 4 pounds since 06-27-22 Encounters Encounter Location Date Provider Diagnosis Dale Thornton MD [address] [place] [address] Drive [address] [place], [place] [id number] 05/26/2023 Dale Thornton Other cholangitis K83.09 ; Annual physical exam Z00.00 ; Dysthymia F34.1 ; Subcutaneous nodule R22.9 and Depression screening Z13.31 Assessments Encounter Date Diagnosis (ICD Code) Assessment Notes Treatment Notes Treatment Clinical Notes Section Notes 05/26/2023 Other cholangitis (ICD-10 - K83.09) doing well as long as she stays on meds 05/26/2023 Annual physical exam (ICD-10 - Z00.00) labs reviewed and discussed with patient 05/26/2023 Dysthymia (ICD-10 - F34.1) doing much better. 05/26/2023 Subcutaneous nodule (ICD-10 - R22.9) feels soft and free moving and has been there unchanged fro years feels benign. will just observe 05/26/2023 Depression screening (ICD-10 - Z13.31) negative screen Plan Of Treatment Pending Test Test Name Order Date US ABD 03/16/2021 CA echo transthoracic complete 2 XR lumbar spine 4V min 06/27/2022 Next Appt Details Provider Name:Dale boyce, 05/20/2024 07:45:00 AM, [address] [facility], [address], [place], [place], [id number], Provider Name:Dale boyce, 05/27/2024 11:00:00 AM, [address] [place] [address], Suite [facility], [place], [place], [id number], Insurance Providers Payer Name Payer Address Payer Phone Subscriber Number Group Number Insured Name Patient Relationship to Insured Coverage Start Date Coverage End Date [employer] [address] [address] [place] [phone] [id number] Sofía Carlin Self - patient is the insured Medical (General) History Medical History History ICD Code coloonoscopy 08/17/21 repeat 10 yrs
--- OUTSIDE RECORDS SUMMARY | 2024-05-03 17:27 | XMS_ITS ---
Author Organization Dale Thornton MD Address [address] [facility] [address] [place] [phone] Care Team Providers Care Departmental Shipping Clerk Name Role Phone Dale Thornton Primary Care Provider REASON FOR VISIT Scopalamine Medications Medication SIG (Take, Route, Fr equency, Duration) Notes Start Date End Date Status Scopolamine 1 MG/3DAYS one oatch to skin behind ear Transdermal every 3 days for 10 days 03/27/2023 Active Encounters Encounter Location Date Provider Diagnosis Dale Thornton MD [address] [place] [address] [place] [phone] 03/27/2023 Dale Thornton Plan Of Treatment Medication Medication Name Sig Start Date Stop Date Notes Scopolamine 1 MG/3DAYS one oatch to skin behind ear Transdermal every 3 days for 10 days 03/27/2023 Next Appt Details Provider Name:Dale boyce, 05/20/2024 07:45:00 AM, [address] [place] [address], [address], [phone], Provider Name:Dale boyce, 05/27/2024 11:00:00 AM, [address] [place] [address], [address], [phone], Progress Notes * Sofía CARLINDOB: 6 (57 yo F)Acc No.[id number]:03/27/2023 Patient:?Sofía Carlin :1965???Age:57 Y???Sex:Female Address:[address] [place] [address], [place], [address] * Refills? Start Scopolamine Patch 72 Hour, 1 MG/3DAYS, Transdermal, 6, one oatch to skin behind ear, every 3 days, 10 days, Refills=3 * true * Date:? Generated for Marixa robles/Calvin/eTransmitting on:?05/03/2024 05:27 PM EST
--- OUTSIDE RECORDS SUMMARY | 2024-05-03 17:27 | XMS_ITS ---
Author Organization [facility] Address [address] [place] [address] Care Team Providers Care Computer Systems Support Specialist Name Role Phone SALUD KRUSE PA-C Primary Care Provider Kevin Nicholson [phone] REASON FOR VISIT labs Encounters Encounter Location Date Provider Diagnosis [facility] [address] [place] [address] 05/03/2024 Kevin De Leon PLAN OF TREATMENT Next Appt Details Provider Name:Kevin De Leon , 05/21/2024 03:00:00 PM, [address], [address], [place], [address],
--- OUTSIDE RECORDS SUMMARY | 2024-05-03 17:27 | XMS_ITS ---
Author Organization Dale Thornton MD Address [address] [place], [place] [phone] Care Team Providers Care Diamond Sorter Name Role Phone Dale Thornton Primary Care Provider Results Component Value Reference Range Notes [facility] [place]. Panel Fa st Reviewed date:05/23/2023 09:22:28 AM Interpretation: Performing Lab:[facility], [address] [place] [phone] Notes/Report: Sodium 143 135-145 mmol/L Potassium 4.2 3.3-5.1 mmol/L Chloride 106 96-108 mmol/L Carbon Dioxide 27 22-29 mmol/L Anion Gap 14 12-20 Blood Urea Nitrogen 12 9-16 mg/dL Creatinine 0.72 0.5-1.4 mg/dL Estimated Glomerular Filt Rate > 60 NOTE: For -Dutch individuals, multiply the result by 1.210. Chronic Kidney Disease: Estimated GFR < 60 mL/min/1.73m2 Severe Kidney Disease: Estimated GFR < 15 mL/min/1.73m2 Glucose Fasting 99 60-99 mg/dL Calcium 9.6 8.4-10.2 mg/dL Bilirubin Total 0.3 0.0-1.0 mg/dL Aspartate Amino Transferase 40 5-31 U/L Alanine Aminotransferase 48 0-31 U/L Total Protein 6.8 6.5-8.0 g/dL Albumin Level 4.2 3.5-5.0 g/dL Alkaline Phosphatase 94 39-117 U/L Lipid Panel Reviewed date:05/23/2023 09:22:08 AM Interpretation: Performing Lab:[facility], [address] [place] [phone] Notes/Report: Triglycerides 59 <150 mg/dL Desirable Triglyceride: less than 150 mg/dL Borderline High Triglyceride 150-199 mg/dL High Triglyceride: 200-499 mg/dL Very High Triglyceride: greater than or equal to 5OO mg/dL Cholesterol 198 <200 mg/dL Desirable Cholesterol: less than 200 mg/dL Borderline High Cholesterol: 200-239 mg/dL High Cholesterol: greater than 239 mg/dL LDL Cholesterol Calculated 120 <100 mg/dL Desirable LDL: less than 100 mg/dL Near Optimal/Above Optimal LDL: 110-129 mg/dL Borderline High LDL: 130-159 mg/dL High LDL: 160-189 mg/dL Very High LDL: greater than or equal to 190 mg/dL HDL Cholesterol 67 >40 mg/dL Desirable HDL: greater than 40 mg/dL Note: This HDL assay may give artificially low results in patients with liver disease. UA ClnCatch+Micro w/rflx Cul t Reviewed date:05/23/2023 06:41:21 PM Interpretation: Performing Lab:[facility], [address] [place] [phone] Notes/Report: Urine, Clean Catch Color Urine Yellow Appearance Urine Clear PH 6.0 5.0-9.0 Glucose Urine UA Negative Negative mg/dL Urine Blood Negative Negative Specific [place] - Urine 1.015 1.005-1.025 Urine Protein Negative Neg-Trace mg/dL Urine Ketones Negative Negative mg/dL Nitrite Urine Negative Negative Leukocyte Esterase Urine Negative Negative RBC Urine 0-2 0-2 /HPF WBC Urine 0-5 0-5 /HPF Squamous Epithelial Cell Urine 0-2 0-2 /HPF Bacteria Urine Trace None Seen Hyaline Casts Urine 0-2 0-2 /LPF REASON FOR VISIT yearly labs Encounters Encounter Location Date Provider Diagnosis Dale Thornton MD [address] [place], [place] [phone] 05/23/2023 Dale Thornton Blood tests for routine general physical examination Z00.00 and Lymphocytosis D72.820 Assessments Encounter Date Diagnosis (ICD Code) Assessment Notes Treatment Notes Treatment Clinical Notes Section Notes 05/23/2023 Blood tests for routine general physical examination (ICD-10 - Z00.00) 05/23/2023 Lymphocytosis (ICD-10 - D72.820) Plan Of Treatment Next Appt Details Provider Name:Dale Michelle jose alfredor, 05/20/2024 07:45:00 AM, [address], [address], [place], [place], [phone], Provider Name:Dale Michelle ier, 05/27/2024 11:00:00 AM, [address] [facility], [address], [place], [place], [phone], Progress Notes * Sofía CARLINDOB: 6 (58 yo F)Acc No.[id number]:05/23/2023 Progress Note Patient:?Sofía CARLIN Provider:?Dale Thornton MD :1965???Age:57 Y???Sex:Female D ate:05/23/2023 Address:[address] [place], [place] [phone] Subjective: * Chief Complaints: * ???1. Yearly labs. * Medical History:? Objective: * Vitals:? Assessment: * Assessment: 1.?Blood tests for routine g eneral physical examination - Z00.00 (Primary)???2.?Lymphocytosis - D72.820??? Plan: * Treatment: 2.?Lymphocytosis?LAB: Complete Blood Count Auto Diff (Order Cancelled) ?LAB: [facility] [place]. Panel Fast (Collection Date & Time - 05/23/2023 08:07 AM) ?LAB: Lipid Panel (Collection Date & Time - 05/23/2023 08:07 AM) ?LAB: UA ClnCatch+Micro w/rflx Cult (Collection Date & Time - 05/23/2023 08:02 AM) * * The named appointment provid er may or may not be the originator of this progress note, and it is not deemed complete until electronically signed by the appointment provider. Sign off status: Pending * Provider:?Dale Thornton MD Date:?0 05/23/2023 Generated for Marixa robles/Calvin/Wilber on:?05/03/2024 05:27 PM EST
--- OUTSIDE RECORDS SUMMARY | 2024-05-03 17:28 | XMS_ITS ---
Author Organization [facility] Address [address] [place] [phone] Care Team Providers Care Hospice Clinical Marketer Name Role Phone SALUD KRUSE PA-C Primary Care Provider Kevin Nicholson [phone] ALLERGIES No Known Allergies REASON FOR VISIT Patient presents today for biliary cholangitis MEDICATIONS Medication SIG (Take, Route, Fr equency, Duration) Notes Start Date End Date Status Ursodiol 300 MG TAKE 2 CAPSULES BY M OUTH TWICE DAILY Active Colchicine 0.6 MG TAKE 1 TABLET BY QUINCY TH TWICE DAILY FOR 90 DAYS Active Aspirin 81 as needed Active Valsartan 80 MG 1 tablet Orally Once a day for 30 day(s) Active Multi Vitamin - 1 tablet Orally Once a day for 30 day(s) Active IMMUNIZATIONS Vaccine Route Administration Date Status Comme nts Influenza Unknown 11/07/2023 Refused SOCIAL HISTORY Tobacco Use: Social History Observation Description Date Details (start date - stop date) Never Smoker NA - NA Sex Assigned At : Social History Observation Description Sex Assigned At Unknown Tobacco Use/Smoking Question Answer Notes Patient is a nonsmoker Alcohol Screen Question Answer Notes Did you have a drink containing alcohol in the p ast year? No Points 0 Interpretation Negative VITAL SIGNS Temperature 97.8 degrees Fahrenheit 11/07/19 24 Blood pressure systolic 000 mm Hg 11/07/19 24 Blood pressure diastolic 00 mm Hg 024 Height 62 in 11/07/2023 Weight 139 lb 2 oz lbs 11/07/2023 BMI 25.44 kg/m2 11/07/2023 Encounters Encounter Location Date Provider Diagnosis [facility] [address] [place] [phone] 11/07/2023 Kevin De Leon Elevated liver funct ion tests R79.89 ; Primary biliary cholangitis K74.3 ; Encounter for screening for malignant neoplasm of colon Z12.11 ; Antimitochondrial antibody positive R76.8 and Diarrhea R19.7 ASSESSMENTS Encounter Date Diagnosis Assessment Notes Treatment Notes Treatment Clinical Notes 11/07/2023 Elevated liver funct ion tests (ICD-10 - R79.89) 11/07/2023 Primary biliary cholangitis (ICD-10 - K74.3) 11/07/2023 Encounter for screen ing for malignant neoplasm of colon (ICD-10 - Z12.11) 11/07/2023 Antimitochondrial antibody positive (ICD-10 - R76.8) 11/07/2023 Diarrhea (ICD-10 - R19.7) PLAN OF TREATMENT Medication Medication Name Sig Start Date Stop Date Notes Ursodiol 300 MG TAKE 2 CAPSULES BY MOUTH TWICE DAILY Colchicine 0.6 MG TAKE 1 TABLET BY QUINCY TH TWICE DAILY FOR 90 DAYS Pending Test Test Name Order Date CELIAC PANEL #10 11/07/2023 Next Appt Details Follow Up: 6 Months, Reason: Provider Name:Kevin De Leon , 05/21/2024 03:00:00 PM, [address] [facility] [address], [address], [place], [address], Progress Notes * Examination Category Sub-Category Detail Notes General Examination GENERAL APPEARANCE: pleasant , well nourished, well developed, in no acute distress HEAD: EYES: sclera non-icteric EARS: NOSE: THROAT: NECK/THYROID: no cervical lymphade nopathy, neck supple HEART: S1, S2 normal CHEST: LUNGS: clear to auscultatio n bilaterally ABDOMEN: normal bowel sounds, no guarding or rigidity, no guarding or rigidity, no masses palpable, soft, nontender, nondistended NEUROLOGIC: alert and oriented SKIN: nonjaundiced, no spi karolyn angiomata EXTREMITIES: no edema PERIPHERAL PULSES: BACK: BREASTS: MUSCULOSKELETAL: MALE GENITOURINARY: LYMPH NODES: RECTAL EXAM: FEMALE GENITOURINARY: ORAL CAVITY: mucosa moist
--- OUTSIDE RECORDS SUMMARY | 2024-05-03 17:28 | XMS_ITS ---
Author Organization Dale Thornton MD Address [address] [place] [phone] Care Team Providers Care Perfusionist Name Role Phone Dale Thornton Primary Care Provider Allergies No Known Allergies REASON FOR VISIT annual visit, NO COvid symptoms Medications Medication SIG (Take, Route, Frequency, Duration) [...] 80-12.5 MG TAKE 1 TABLET BY MOUTH EVERY DAY FOR 30 DAYS Orally Once a day for 90 days Active Vitamin D 50 MCG (1999 [place]) 1 tablet Orally Once a day for 30 day(s) Active Ursodiol 300 MG 2 capsule Orally Twi ce a day Active Colchicine 0.6 MG 1 capsule Orally bid Active Aspir-Low 81 MG 1 tablet Orally Once a day for 30 day(s) Active Social History Tobacco Use: Social History Observation [...] Problem Status W/U Status Risk Notes Problem [id number] Subcutaneous nodule (R22.9) Active confirmed Vital Signs Blood pressure systolic 124 mm Hg 05/26/19 24 Blood pressure diastolic 60 mm Hg 024 Height 61 in 05/26/2023 Weight 139 lbs 05/26/2023 BMI 26.26 kg/m2 05/26/2023 eight is down 14 pounds sin e 06-27-22 Encounters Encounter Location Date Provider Diagnosis Dale Thornton MD [address] [place] [address] Drive [address] [place], [place] [phone] 05/26/2023 Dale Thornton Other cholangitis K83.09 ; [...] - Z13.31) negative screen Plan Of Treatment Treatment Notes Assessment Notes Other cholangitis doing well as long a s she stays on meds Annual physical exam labs reviewed and d iscussed with patient Dysthymia doing much better. Subcutaneous nodule feels soft and free moving and has been there unchanged fro years feels benign. will just observe Depression screening negative screen Next Appt Details Follow Up: 1 Year, Reason: Provider Name:Dale boyce, 05/20/2024 07:45:00 AM, [address] [place] [address], [address], [place], [place], [phone], Provider Name:Dale boyce, 05/27/2024 11:00:00 AM, [address] [place] [address], [address], [place], [place], [phone], Progress Notes * Sofía CARLINDOB: 6 (57 yo F)Acc No.[id number]:05/26/2023 Progress Notes Patient:?Sofía Carlin Provider:?Dale Thornton MD :1965???Age:57 Y???Sex:Female D ate:05/26/2023 Address:[address] [place] [address] Subjective: * Chief Complaints: * ???Annual visitNO COvid symp toms * HPI: ???Depression Screening:?PHQ-9?Little interest or pleasure in doing things?Not at all,?Feeling down, depressed, or hopeless?Not at all,?Trouble falling or staying asleep, or sleeping too much?Not at all,?Feeling tired or having little energy?Not at all,?Poor appetite or overeating?Not at all,?Feeling bad about yourself or that you are a failure, or have let yourself or your family down?Not at all,?Trouble concentrating on things, such as reading the newspaper or watching television?Not at all,?Moving or speaking so slowly that other people could have noticed; or the opposite, being so fidgety or restless that you have been moving around a lot more than usual?Not at all,?Thoughts that you would be better off or of hurting yourself in some way?Not at all,?Total Score?0.? patient is a 57 yo female here for annual visit with review of recent labs and follow up of chronic issues,. ???Communication Needs:?Communication Needs?Does the patient have a hearing impairment?No,?Does the patient have a vision impairment??Yes,?If yes, what is the vision impairment??Glasses,?Does the patient have a cognition impairment??No.?SDOH Questions:?SDOH Questions?In the past year have you been worried about losing housing??No,?In the past year have you or any family members you live with been unable to get any of the following when it was really needed? Check all that apply:?None.? * ROS:?General/Constitutional:?Patient denies?fatigue, headache.?Change in appetite?denies.?Chills?denies.?Fever?denies.?Ophthalmologic:?Blurred vision?denies.?Discharge?denies.?Pain?denies.?ENT:?Patient denies?decreased sense of smell, any loss of taste, sore throat.?Decreased hearing?denies.?Sore throat?denies.?Swollen glands?denies.?Endocrine:?Cold intolerance?denies.?Excessive thirst?denies.?Heat intolerance?denies.?Weight loss?denies.?Respiratory:?Cough?denies.?Shortness of breath at rest?denies.?Shortness of breath with exertion?denies.?Wheezing?denies.?Cardiovascular:?Chest pain at rest?denies.?Chest pain with exertion?denies.?Irregular heartbeat?denies.?Shortness of breath?denies.?Gastrointestinal:?Abdominal pain?denies.?Change in bowel habits?denies.?Diarrhea?denies.?Nausea?denies.?Rectal bleeding?denies.?Vomiting?denies .?Genitourinary:?Blood in urine?denies.?Difficulty urinating?denies.?Frequent urination?denies.?Urinary incontinence?Denies.?Musculoskeletal:?Patient denies?muscle aches.?Painful joints?denies.?Weakness?denies.?Peripheral Vascular:?Patient denies?red and blue toes.?Skin:?Dry skin?denies.?Itching?denies.?Denies?Mole(s),? changes in moles, new moles or any lesions of concern.?Denies?Photosensitivity.?Rash?denies.?Neurologic:?Dizziness?denies.?Fainting?denies.?Headache?denies.? * Medical History:? * Surgical History:? * Hospitalization/Major Diagno stic Procedure:? * Family History:?Father: tevin chang 83 yrs.?Mother: alive 80 yrs.?2 brother(s) , 1 sister(s) . 5 son(s) . .? father Lymphoma Mother healthy, No pertinent family medical history, Denies mental health/substance abuse family history. * Social History:?Tobacco Use:?Tobacco Use/Smoking?Patient is a?nonsmoker,?Additional Findings: Tobacco Non-User?Current non-smoker, currently using no form of tobacco.?Drugs/Alcohol:?Alcohol Screen?Did you have a drink containing alcohol in the past year??No,?Points?0,?Interpretation?Negative.?Miscellaneous:?Caffeine: yes, frequency:, 2-3 cups per day. Children: yes. Community involvements: yes. Exercise: yes, walk. Home smoke detector use: yes. Housing: owning. Living with: family. Marital status: . Occupation: weeks/months/years, works full-time. Travel outside of the [place]: yes, [place]. * Medications:?TakingVitamin D 50 MCG (1999 [place]) Tablet 1 tablet Orally Once a dayAspir-Low 81 MG Tablet Delayed Release 1 tablet Orally Once a dayColchicine 0.6 MG Capsule 1 capsule Orally bidUrsodiol 300 MG Capsule 2 capsule Orally Twice a dayValsartan-hydroCHLOROthiazide 80-12.5 MG Tablet TAKE 1 TABLET BY MOUTH EVERY DAY FOR 30 DAYS Orally Once a dayScopolamine 1 MG/3DAYS Patch 72 Hour one oatch to skin behind ear Transdermal every 3 daysTaking Vitamin D 50 MCG (2000 UT) Tablet 1 tablet Orally Once a dayTaking Aspir-Low 81 MG Tablet Delayed Release 1 tablet Orally Once a dayTaking Colchicine 0.6 MG Capsule 1 capsule Orally bidTaking Ursodiol 300 MG Capsule 2 capsule Orally Twice a dayTaking Valsartan-hydroCHLOROthiazide 80-12.5 MG Tablet TAKE 1 TABLET BY MOUTH EVERY DAY FOR 30 DAYS Orally Once a dayTaking Scopolamine 1 MG/3DAYS Patch 72 Hour one oatch to skin behind ear Transdermal every 3 daysNot-Taking/PRNLORazepam 0.5 MG Tablet 1 tablet at bedtime as needed Orally Once a day as neededMilk Thistle 175 MG Tablet as directed Orally Medication List reviewed and reconciled with the patientNot-Taking/PRN LORazepam 0.5 MG Tablet 1 tablet at bedtime as needed Orally Once a day as neededNot-Taking/PRN Milk Thistle 175 MG Tablet as directed Orally Medication List reviewed and reconciled with the patient * Allergies:?N.K.D.A.yes[Aller gies Verified] Objective: * Vitals:?Ht: 61, Wt:139, BMI: 26.26, BP:124/60 eight is down 14 pounds since 06-27-22. * ???Past Orders: ???Lab:Comprehensive [place]. P regan Fast (Order Date - 05/23/2023) (Collection Date - 05/23/2023) ? Value Reference Range ?Sodium 143 135-145 - mmo l/L ?Bilirubin Total 0.3 0.0- 1.0 - mg/dL ?Aspartate Amino Transferase 40 H 5-31 - U/L ?Alanine Aminotransferase 48 H 0-31 - U/L ?Total Protein 6.8 6.5-8. 0 - g/dL ?Albumin Level 4.2 3.5-5. 0 - g/dL ?Alkaline Phosphatase 94 39-117 - U/L ?Potassium 4.2 3.3-5.1 - mmol/L ?Chloride 106 96-108 - mm ol/L ?Carbon Dioxide 27 22-29 - mmol/L ?Anion Gap 14 12-20 - ?Blood Urea Nitrogen 12 9-16 - mg/dL ?Creatinine 0.72 0.5-1.4 - mg/dL ?Estimated Glomerular Filt Rate > 60 - ?Glucose Fasting 99 60-9 9 - mg/dL ?Calcium 9.6 8.4-10.2 - m g/dL ???Lab:Lipid Panel (Order Da te - 05/23/2023) (Collection Date - 05/23/2023) ? Value Reference Range ?Triglycerides 59 <150 - mg/dL ?Cholesterol 198 <200 - m g/dL ?LDL Cholesterol Calculated 120 H <100 - mg/dL ?HDL Cholesterol 67 >40 - mg/dL ???Lab:UA ClnCatch+Micro w/r flx Cult (Order Date - 05/23/2023) (Collection Date - 05/23/2023) ? Value Reference Range ?Color Urine Yellow - ?Appearance Urine Clear - ?PH 6.0 5.0-9.0 - ?Glucose Urine UA Negative Neg ative - mg/dL ?Urine Blood Negative Negative - ?Specific [place] - Urine 1.015 1.005-1.025 - ?Urine Protein Negative Neg-Tr tabby - mg/dL ?Urine Ketones Negative Negati ve - mg/dL ?Nitrite Urine Negative Negati ve - ?Leukocyte Esterase Urine Negative Negative - ?RBC Urine 0-2 0-2 - /HPF ?WBC Urine 0-5 0-5 - /HPF ?Squamous Epithelial Cell Urine 0-2 0-2 - /HPF ?Bacteria Urine Trace None Seen - ?Hyaline Casts Urine 0-2 0-2 - /LPF * Examination: ???General Examination: ?GENERAL APPEARANCE:?well developed, well nourished, in no acute distress.?HEAD:?normocephalic, atraumatic.?EYES:?pupils equal, round, reactive to light and accommodation, sclera non-icteric.?EARS:?normal.?ORAL CAVITY:?mucosa moist.?THROAT:?clear.?NECK/THYROID:?neck supple, full range of motion, no cervical lymphadenopathy, no bruits.?SKIN:?warm and dry, no suspicious lesions.?HEART:?regular rate and rhythm, S1, S2 normal, no murmurs.?LUNGS:?clear to auscultation bilaterally.?BREASTS:?No mass, no lump, abnormal above the rt breast is a one inch soft nodule that is freely movable and she says has been there unchanged for years. says it is a lymphnode but feels more like a lipoma.?ABDOMEN:?soft, nontender, nondistended, bowel sounds present, normal, no organomegaly , no masses palpable.?RECTAL EXAM:?done by cow washer.?FEMALE GENITOURINARY:?done by cow washer.?EXTREMITIES:?no clubbing, cyanosis, or edema.?NEUROLOGIC:?nonfocal, motor strength normal upper and lower extremities, sensory exam intact.? Assessment: * Assessment: 1.?Annual physical exam - Z0 0.00 (Primary)?2.?Other cholangitis - K83.09?3.?Dysthymia - F34.1?4.?Subcutaneous nodule - R22.9?5.?Depression screening - Z13.31? Plan: * Treatment: 2.?Other cholangitis? Notes: doing well as long as she stays on meds.?? 3.?Dysthymia? Notes: doing much better.?? 4.?Subcutaneous nodule? Notes: feels soft and free moving and has been there unchanged fro years feels benign. will just observe.?? 5.?Depression screening? Notes: negative screen.?? * Procedure Codes:? * Follow Up:?1 Year * * Sign off status: Completed true * Provider:?Dale Thornton MD Date:?0 05/26/2023 Generated for Marixa robles/Calvin/Analiitting on:?05/03/2024 05:27 PM EST History and Physical Notes * HPI (History of Present Illness) Category Sub-Category Detail Notes Category Not es Depression Screening PHQ-9 Little inte rest or pleasure in doing things: Not at all patient is a 57 yo female here for annual visit with review of recent labs and follow up of chronic issues, Feeling down, depressed, or hopeless: No t at all Trouble falling or staying asleep, or sl eeping too much: Not at all Feeling tired or having little energy: N ot at all Poor appetite or overeating: Not at all Feeling bad about yourself o r that you are a failure, or have let yourself or your family down: Not at all Trouble concentrating on thi ngs, such as reading the newspaper or watching television: Not at all Moving or speaking so slowly that other people could have noticed; or the opposite, being so fidgety or restless that you have been moving around a lot more than usual: Not at all Thoughts that you would be b nikolas off or of hurting yourself in some way: Not at all Total Score: 0 SDOH Questions SDOH Questions In the past year have you been worried about losing housing?: No In the past year have you or any family members you live with been unable to get any of the following when it was really needed? Check all that apply:: None Communication Needs Communication Needs Does the patient have a hearing impairment: No Does the patient have a vision impairmen t?: Yes ?If yes, what is the vision impairment?: Glasses Does the patient have a cognition impair ment?: No Examination Category Sub-Category Detail Notes Category Not es General Examination GENERAL APPEARANCE: well dev eloped, well nourished, in no acute distress HEAD: normocephalic, atrau matic EYES: pupils equal, round, reactive to light and accommodation, sclera non- icteric EARS: normal THROAT: clear NECK/THYROID: neck supple, full ra nge of motion, no cervical lymphadenopathy, no bruits HEART: regular rate and rhy thm, S1, S2 normal, no murmurs LUNGS: clear to auscultatio n bilaterally ABDOMEN: soft, nontender, non distended, bowel sounds present, normal, no organomegaly , no masses palpable NEUROLOGIC: nonfocal, motor stre ngth normal upper and lower extremities, sensory exam intact SKIN: warm and dry, no enoch picious lesions EXTREMITIES: no clubbing, cyanosi s, or edema BREASTS: No mass, no lump, ab normal above the rt breast is a one inch soft nodule that is freely movable and she says has been there unchanged for years. says it is a lymphnode but feels more like a lipoma RECTAL EXAM: done by cow washer FEMALE GENITOURINARY: done by cow washer ORAL CAVITY: mucosa moist
--- OUTSIDE RECORDS SUMMARY | 2024-05-03 17:28 | XMS_ITS | Patient Health Record ---
Author Organization [facility] Address [address] [place] [address] Care Team Providers Care Station Tender Name Role Phone SALUD KRUSE PA-C Primary Care Provider Kevin Nicholson Unavailable [phone] ALLERGIES No Known Allergies RESULTS Component Value Reference Range Notes Complete Blood Count Auto Di ff Reviewed date:05/23/2023 07:25:01 PM Interpretation: Performing Lab:[facility], [address] [place] [phone] Notes/Report: White Blood Count 6.5 4.8-10.8 X10*3/uL Red Blood Count 4.25 4.20-5.50 X10*6/uL Hemoglobin 13.2 12.0-16.0 g/dl Hematocrit 39.8 37.0-47.0 % Mean Corpuscular Volume 93.6 80.0-98.0 fL Mean Corpuscular Hemoglobin 31.1 27.0-33.0 pg Mean Corpuscular HGB Conc 33.2 31.0-35.0 g/dl Red Cell Distribution Width 13.6 11.0-16.0 % Platelet Count 383 160-400 X10*3/uL Mean Platelet Volume 9.4 9.4-12.3 fL Neutrophils Percent Auto 42.0 45-73 % Imm Gran Pct Auto 0.2 0.0-0.4 % Lymphocytes Percent Auto 42.6 20-40 % Monocytes Percent Auto 6.6 2-11 % Eosinophils Percent Auto 7.7 0-4 % Basophils Percent Auto 0.9 0-2 % NRBC Pct Auto 0.0 0.0-0.2 /100WBC Neutrophils Absolute Auto 2.8 2.0-8.3 x10*3/u L Imm Gran Abs Auto 0.01 0.00-0.03 X10*3/uL Lymphocytes Absolute Auto 2.8 1.2-4.9 X10*3/u L Monocytes Absolute Auto 0.4 0.1-1.2 X10*3/uL Eosinophils Absolute Auto 0.5 0.0-0.4 X10*3/u L Basophils Absolute Auto 0.1 0.0-0.2 X10*3/uL NRBC Abs Auto 0.000 0.0-0.012 X10*3/uL Prothrombin Time INR Reviewed date:05/23/2023 07:25:08 PM Interpretation: Performing Lab:[address] [address] Notes/Report: Prothrombin Time 10.2 11.1-13.3 SEC INTERNATIONAL NORM RATIO 0.8 0.9-1.1 INTERNATIONAL NORMALIZED RATIO (INR) REFERENCE RANGES Reference Range For patients not on anticoagulant therapy: 0.9 - 1.1 INR ranges for oral anticoagulant therapy: For prevention and treatment of venous thrombosis and pulmonary embolism: 2.0 - 3.0 For acute myocardial infarction with aspirin therapy: 2.0 - 3.0 For acute myocardial infarction without aspirin therapy: 3.0 - 4.0 For patients with mechanical prosthetic heart valves: 2.5 - 3.5 Liver Panel Reviewed date:10/02/2023 12:05:09 AM Interpretation: Performing Lab:[address] [address] Notes/Report: Bilirubin Total 0.3 0.0-1.0 mg/dL Bilirubin Direct 0.2 0.0-0.5 mg/dL Aspartate Amino Transferase 40 5-31 U/L Alanine Aminotransferase 47 0-31 U/L Total Protein 6.8 6.5-8.0 g/dL Albumin Level 4.2 3.5-5.0 g/dL Alkaline Phosphatase 94 39-117 U/L Alpha Fetoprotein Reviewed date:06/02/2023 12:23:01 AM Interpretation: Performing Lab:[address] [address] Notes/Report: Alpha Fetoprotein 2.8 Reference Range: <6.1 The use of AFP as a tumor marker in females is not recommended. This test was performed using the Jose Claudio chemiluminescent method. Values obtained from different assay methods cannot be used interchangeably. AFP levels, regardless of value, should not be interpreted as absolute evidence of the presence or absence of disease. THIS TEST WAS PERFORMED AT: [employer] [address] [place] [phone] FRANCESCO ORTEGA MD Liver Fibrosis Pnl Reviewed date:06/02/2023 12:23:15 AM Interpretation: Performing Lab:[facility], [address] [place] [phone] Notes/Report: Liver Fibrosis Score 0.06 Liver Fibrosis Stage F0 Liver Fibrosis Interpretation SEE NOTE no fibrosis Fibro Test Score (f) Metavir Score f>=0 and f<=0.21 : F0 (no fibrosis) f>0.21 and f<=0.27 : F0-F1 (no fibrosis) f>0.27 and f<=0.31 : F1 (minimal fibrosis) f>0.31 and f<=0.48 : F1-F2 (minimal fibrosis) f>0.48 and f<=0.58 : F2 (moderate fibrosis) f>0.58 and f<=0.72 : F3 (advanced fibrosis) f>0.72 and f<=0.74 : F3-F4 (advanced fibrosis) f>0.74 and f<=1.00 : F4 (severe fibrosis) Nec Inflam Act Score 0.17 Nec Inflam Act Grade A0-A1 Nec Inflam Act Interpretation SEE NOTE no activity ActiTest Score (a) Metavir Score a>=0 and a<=0.17 : A0 (no activity) a>0.17 and a<=0.29 : A0-A1 (no activity) a>0.29 and a<=0.36 : A1 (minimal activity) a>0.36 and a<=0.52 : A1-A2 (minimal activity) a>0.52 and a<=0.60 : A2 (significant activity) a>0.60 and a<=0.62 : A2-A3 (significant activity) a>0.62 and a<=1.00 : A3 (severe activity) LNX-Kxhnt-7-Macroglobulin 141 106-279 mg/dL FIB-Haptoglobin 137 43-212 mg/dL FIB-Apolipoprotein A1 198 101-198 mg/dL FIB-Total Bilirubin 0.4 0.2-1.2 mg/dL FIB-GGT 33 3-70 U/L FIB-ALT 42 6-29 U/L Reference ID [id number] Footnote SEE NOTE The reliability of results is dependent on compliance with the preanalytical and analytical conditions recommended by [employer]. The tests have to be deferred for: acute hemolysis, acute hepatitis, acute inflammation, extra hepatic cholestasis. The advice of a specialist should be sought for interpretation in chronic hemolysis and Gilbert's syndrome. The test interpretation is not validated in liver transplant patients. Isolated extreme values of one of the components should lead to caution in interpreting the results. In case of discordance between a biopsy result and a test, it is recommended to seek the advice of a specialist. The causes of these discordances could be due to a flaw of the test or to a flaw in the biopsy: i.e. a liver biopsy has a 33% variability rate for one fibrosis stage. FibroTest is interpretable for chronic hepatitis B and C, alcoholic and non alcoholic steatosis. ActiTest is interpretable for chronic hepatitis B and C. The performance characteristics have been determined by [facility]. It has not been cleared or approved by the U.S. Food and Drug Administration. Performance characteristics refer to the analytical performance of the test. [employer], the associated logo, [employer] and all associated [employer] bean are the registered trademarks of [employer]. All third libertarian bean - (R) and (TM) - are the property of their respective owners. (C) 5892-5387 [employer]. All rights reserved. THIS TEST WAS PERFORMED AT: [employer] [facility] [place] [facility] [address] [place] [address] EMILIA JIANG MD,PHD,CHESTER US abdomen comp w elastograp hy Reviewed date:10/02/2023 12:04:41 AM Interpretation: Performing Lab: Notes/Report: [address] [address] Ultrasound Report Signed Patient: Sofía Carlin MR#: [id number] 54 : 1965 Acct:[id number] Age/Sex: 57 / F ADM Date: 05/23/23 Loc: HO.US Attending Dr: Kevin De Leon MD Ordering Physician: Kevin De Leon Date of Service: 05/23/23 Procedure(s): US abdomen comp w elastography Accession Number(s): [id number] cc: Dale Thornton MD; Kevin De Leon [...] in OV> 05/30/23 1218 DD/ 0835 TD/TT: Senior C Web Developer: Complete Blood Count Auto Di ff Reviewed date:10/17/2023 05:48:45 PM Interpretation: Performing Lab:[facility], [address] [place] [phone] Notes/Report: White Blood Count 8.7 4.8-10.8 X10*3/uL Red Blood Count 4.26 4.20-5.50 X10*6/uL Hemoglobin 13.6 12.0-16.0 g/dl Hematocrit 40.5 37.0-47.0 % Mean Corpuscular Volume 95.1 80.0-98.0 fL Mean Corpuscular Hemoglobin 31.9 27.0-33.0 pg Mean Corpuscular HGB Conc 33.6 31.0-35.0 g/dl Red Cell Distribution Width 13.2 11.0-16.0 % Platelet Count 391 160-400 X10*3/uL Mean Platelet Volume 9.5 9.4-12.3 fL Neutrophils Percent Auto 44.5 45-73 % Imm Gran Pct Auto 0.3 0.0-0.4 % Lymphocytes Percent Auto 44.0 20-40 % Monocytes Percent Auto 6.2 2-11 % Eosinophils Percent Auto 4.0 0-4 % Basophils Percent Auto 1.0 0-2 % NRBC Pct Auto 0.0 0.0-0.2 /100WBC Neutrophils Absolute Auto 3.9 2.0-8.3 x10*3/u L Imm Gran Abs Auto 0.03 0.00-0.03 X10*3/uL Lymphocytes Absolute Auto 3.8 1.2-4.9 X10*3/u L Monocytes Absolute Auto 0.5 0.1-1.2 X10*3/uL Eosinophils Absolute Auto 0.4 0.0-0.4 X10*3/u L Basophils Absolute Auto 0.1 0.0-0.2 X10*3/uL NRBC Abs Auto 0.000 0.0-0.012 X10*3/uL Erythrocyte Sedimentation Ra te Reviewed date:10/17/2023 05:50:07 PM Interpretation: Performing Lab:[address] [address] Notes/Report: Erythrocyte Sedimentation Rate 7 0-20 MM/HR Patients with polycythemia and many hemoglobin abnormalities may have depressed sed rates whereas patients with anemia may have elevated sed rates. Liver Panel Reviewed date:10/17/2023 05:49:15 PM Interpretation: Performing Lab:[address] [address] Notes/Report: Bilirubin Total 0.3 0.0-1.0 mg/dL Bilirubin Direct 0.1 0.0-0.5 mg/dL Aspartate Amino Transferase 20 5-31 U/L Alanine Aminotransferase 18 0-31 U/L Total Protein 7.7 6.5-8.0 g/dL Albumin Level 4.8 3.5-5.0 g/dL Alkaline Phosphatase 97 39-117 U/L C Reactive Protein Reviewed date:10/17/2023 05:49:25 PM Interpretation: Performing Lab:[facility], [address] [place] [phone] Notes/Report: C Reactive Protein < 0.10 < or = 0.50 mg/dL REASON FOR REFERRAL No Information MEDICATIONS Medication SIG (Take, Route, Fr equency, Duration) Notes Start Date End Date Status Aspirin 81 as needed Active Ursodiol 300 MG TAKE 2 CAPSULES BY M OUTH TWICE DAILY Orally Twice a day for 30 days Active Valsartan 80 MG 1 tablet Orally Once a day for 30 day(s) Active Multi Vitamin - 1 tablet Orally Once a day for 30 day(s) Active Colchicine 0.6 MG TAKE 1 TABLET BY QUINCY TH TWICE DAILY FOR 90 DAYS Active IMMUNIZATIONS Vaccine Route Administration Date Status Comme nts Influenza Unknown 02/01/2020 Administered Influenza Unknown 01/28/2023 Administered Influenza Unknown 11/07/2023 Refused SOCIAL HISTORY Tobacco [...] ast year? 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) Active confirmed Primary biliary cholangitis (46560059) Problem Diverticulosis of colon (K57.30) Active confirmed Diverticulosi s of colon (070294608) Problem Antimitochondrial antibody positive (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) Active confirmed Problem ORION positive (R76.8) Active confirmed R aised antinuclear antibody (024516713) VITAL SIGNS Temperature 97.8 degrees Fahrenheit 11/07/2023 Blood pressure diastolic 00 mm Hg 11/07/2023 Height 62 in 11/07/2023 Blood pressure systolic 000 mm Hg 11/07/2023 Weight 139 lb 2 oz lbs 11/07/2023 BMI 25.44 kg/m2 11/07/2023 Encounters Encounter Location Date Provider Diagnosis [facility] [address] [place] [address] 11/07/2023 Kevin De Leon Elevated liver funct ion tests R79.89 ; Primary biliary cholangitis K74.3 ; Encounter for screening for malignant neoplasm of colon Z12.11 ; Antimitochondrial antibody positive R76.8 and Diarrhea R19.7 [facility] [address] [place] [address] 05/03/2024 Kevin De Leon [facility] [address] [place] [address] 08/28/2023 Kevin De Leon Primary biliary cholangitis K74.3 and Diarrhea R19.7 ASSESSMENTS Encounter Date Diagnosis Assessment Notes Treatment Notes Treatment Clinical Notes 11/07/2023 Elevated liver funct ion tests (ICD-10 - R79.89) 11/07/2023 Primary biliary cholangitis (ICD-10 - K74.3) 08/28/2023 Diarrhea (ICD-10 - R19.7) 08/28/2023 Primary biliary cholangitis (ICD-10 - K74.3) 11/07/2023 Encounter for screen ing for malignant neoplasm of colon (ICD-10 - Z12.11) 11/07/2023 Antimitochondrial antibody positive (ICD-10 - R76.8) 11/07/2023 Diarrhea (ICD-10 - R19.7) PLAN OF TREATMENT Pending Test Test Name Order Date LIVER PROFILE 11/06/2022 LIVER PROFILE 06/26/2021 LIVER PROFILE 08/03/2021 LIVER PROFILE 09/04/2021 LIVER PROFILE 11/30/2021 LIVER PROFILE 08/28/2023 IRON + IBC (FE) 06/26/2021 CRP 08/28/2023 CBC w DIFF 11/06/2022 CBC w DIFF 08/28/2023 CBC w DIFF 08/03/2021 SED RATE (ESR) 08/28/2023 [id number] (A1A) 06/26/2021 ALPHA-FETOPROTEIN,TUMOR MARKER CELIAC PANEL #10 11/07/2023 US LIVER BIOPSY CORE GUIDE 08/03/2021 FLUOR. ANTINUCLEAR AB SCREEN (RICHARD) 05/2 09/2021 FLUOR. ANTINUCLEAR AB SCREEN (RICHARD) 06/08 STOOL WBC 08/28/2023 C DIFFICILE RFLX PCR 08/28/2023 Prothrombin Time INR 06/26/2021 Prothrombin Time INR 08/03/2021 Prothrombin Time INR 11/06/2022 Partial Thromboplastin Time 08/03/2021 Ferritin 06/26/2021 Liver Fibrosis Pnl 06/26/2021 Liver Fibrosis Pnl 11/06/2022 Mitochondrial Antibody 08/03/2021 Mitochondrial Antibody 06/26/2021 Smooth Muscle Antibody 06/26/2021 Calprotectin, Fecal 08/28/2023 US abdomen comp w elastography GI PANEL 08/28/2023 Future Test Test Name Order Date COLONOSCOPY 06/26/2021 Next Appt Details Provider Name:Kevin De Leon , 05/21/2024 03:00:00 PM, [address] [place] [address], [address], [place], [address], Insurance Providers Payer Name Payer Address Payer Phone Subscriber Number Group Number Insured Name Patient Relationship to Insured Coverage Start Date Coverage End Date 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 [address] [place] [address] [id number] SOFÍA CARLIN Self - patient is the insured MEDICAL (GENERAL) HISTORY Medical History History ICD Code Denies [place],DM,CVA,Lung disease,renal dise ase Anxiety Primary biliary cholangitis with +AMA and ORION, and liver biopsy in 08/2021 with a Stage 1-2 level of disease with some fibrosis and inflammation with an associated component of bile duct injury. She was started on ursodiol and colchicine in the summer of 2021. Negative colonoscopy in 08/2021 Hypertension Surgical History Surgery Date(Month/Year) Trigger thumb--right hand
--- OUTSIDE RECORDS SUMMARY | 2024-05-03 17:28 | XMS_ITS ---
Author Organization [facility] Address [address] [place] [address] Care Team Providers Care Porcelain Slusher Name Role Phone SALUD KRUSE PA-C Primary Care Provider Kevin Nicholson [phone] REASON FOR VISIT ? if labs needed before 11/06 OV Encounters Encounter Location Date Provider Diagnosis [facility] [address] [facility] [address] [place] [address] 08/28/2023 Kevin De Leon Primary biliary cholangitis K74.3 and Diarrhea R19.7 ASSESSMENTS Encounter Date Diagnosis Assessment Notes Treatment Notes Treatment Clinical Notes 08/28/2023 Primary biliary cholangitis (ICD-10 - K74.3) 08/28/2023 Diarrhea (ICD-10 - R19.7) PLAN OF TREATMENT Pending Test Test Name Order Date LIVER PROFILE 08/28/2023 CRP 08/28/2023 CBC w DIFF 08/28/2023 SED RATE (ESR) 08/28/2023 STOOL WBC 08/28/2023 C DIFFICILE RFLX PCR 08/28/2023 Calprotectin, Fecal 08/28/2023 GI PANEL 08/28/2023 Next Appt Details Provider Name:Kevin De Leon , 05/21/2024 03:00:00 PM, [address] [facility], [address], [place], [address],
== END 2024-05-03 15:55 | disposition home or self-care (01) ==
PROVIDERS: PCP Physician Assistant Medical; Visit Provider Physician Assistant Medical
DX: N63.10 Unspecified lump in the right breast, unspecified quadrant (principal); M43.06 Spondylolysis, lumbar region; M54.2 Cervicalgia; M81.0 Age-related osteoporosis without current pathological fracture; I10 Essential (primary) hypertension; K83.09 Other cholangitis

== ENCOUNTER → 2024-05-03 15:08 | Outpatient (BNVA) | payer OTHER, SELFPAY | PROVIDERS: PCP Physician Assistant Medical; Visit Provider Physician Assistant Medical ==

== ENCOUNTER 2024-05-20 08:40 | Outpatient (REF) | payer OTHER, SELFPAY ==
--- OUTSIDE RECORDS SUMMARY | 2024-05-20 09:25 | XMS_ITS ---
Author Organization [facility] Address [address] [place] [address] Care Team Providers Care Crabbing Machine Operator Name Role Phone SALUD KRUSE PA-C Primary Care Provider Kevin Nicholson [phone] REASON FOR VISIT labs Problems Problem Type SNOMED Code ICD Code Onset Dates Problem Status W/U Status Risk Notes Problem Elevated liver enzymes level (917588201) Elevated liver function tests (R94.5) Active confirmed Encounters Encounter Location Date Provider Diagnosis [facility] [address] [place] [address] 05/03/2024 Kevin De Leon Primary biliary cholangitis K74.3 and Elevated liver function tests R94.5 Assessments Encounter Date Diagnosis (ICD Code) Assessment Notes Treatment Notes Treatment Clinical Notes Section Notes 05/03/2024 Primary biliary cholangitis (ICD-10 - K74.3) 05/03/2024 Elevated liver function tests (ICD-10 - R94.5) Plan Of Treatment Pending Test Test Name Order Date LIVER PROFILE 05/03/2024 CBC w DIFF 05/03/2024 ALPHA-FETOPROTEIN,TUMOR MARKER Prothrombin Time INR 05/03/2024 Liver Fibrosis Pnl 05/03/2024 US abdomen comp w elastography Next Appt Details Provider Name:Kevin De Leon , 05/21/2024 03:00:00 PM, [address], [address], [place], [address], Progress Notes * PEG BYRNE ADOB: [birth year] (58 yo F)Acc No.[id number]:05/03/2024 Patient:PEG SAUNDERS :1965???Age:58 Y???Sex:Female Address:[address] [place] [address] Subjective: * Chief Complaints: * ???Labs * Medical History:? * Surgical History:? * Hospitalization/Major Diagno stic Procedure:? * Medications:? Objective: * Vitals:? * Physical Examination:? Assessment: * Assessment: 1.?Primary biliary cholangit is - K74.3 (Primary)???2.?Elevated liver function tests - R94.5??? Plan: * Treatment: * 2.?Elevated liver function tests?LAB: LIVER PROFILE ?LAB: CBC w DIFF ?LAB: ALPHA-FETOPROTEIN,TUMOR MARKER ?LAB: Prothrombin Time INR ?LAB: Liver Fibrosis Pnl ?Imaging: US abdomen comp w elastography* sched for 06/16/24 at 8:30 [facility] ultrasound 2nd floorfasting 8 hrs prior * * Procedure Codes:? * true * Date:? Generated for Marixa robles/Calvin/eTiansmitting on:?05/20/2024 09:25 AM EDT
--- OUTSIDE RECORDS SUMMARY | 2024-05-20 09:25 | XMS_ITS | Patient Health Record ---
Author Organization Dale Thornton MD Address [address] [place], [place] [phone] Care Team Providers Care Painter Helper Name Role Phone Dale Thornton Primary Care Provider [phone] Allergies No Known Allergies Results Component Value Reference Range Notes US abdomen comp w elastograp hy Reviewed date:05/30/2023 12:47:13 PM Interpretation: Performing Lab: Notes/Report: [address] [address] Ultrasound Report Signed Patient: Sofía Carlin MR#: [id number] 54 : 1965 Acct:[id number] Age/Sex: 57 / F ADM Date: 05/23/23 Loc: HO.US Attending Dr: Kevin De Leon MD Ordering Physician: Kevin De Leon Date of Service: 05/23/23 Procedure(s): US abdomen comp w elastography Accession Number(s): [id number] cc: Dale Thornton MD; Kevin De Leon [...] in OV> 05/30/23 1218 DD/ 0835 TD/TT: Sports Equipment Supervisor: [address] [address] Ultrasound Report Signed Patient: Sherif Carlin cia MR#: [id number] 54 : 1965 Acct:[id number] Age/Sex: 57 / F ADM Date: 05/23/23 Loc: HO.US Attending Dr: Kevin De Leon MD Ordering Physician: Kevin De Leon Date of Service: 05/23/23 Procedure(s): US abd omen comp w elastography Accession Number(s): [id number] cc: Dale Thornton MD; Kevin De Leon [...] in OV> 05/30/23 1218 DD/ 0835 TD/TT: Sports Equipment Supervisor: PD Reason For Referral No Information Medications [...] Status W/U Status Risk Notes Problem Lymphocytosis (50432649) Lymphocytosis (D72.820) Active confirmed Problem 60250250 Anxiety (F41.9) Active confirmed Problem 82314401 Subcutaneous nodule (R22.9) Active confirmed Problem Dysthymia (19723072) Dysthymia (F34.1) Active confirmed Problem Cholangitis (08848886) Other cholangitis (K83.09) Active confirmed Vital Signs [...] Location Date Provider Diagnosis Dale Thornton MD [address] [place] [phone] 05/20/2024 Dale Thornton Blood tests for routine general physical examination Z00.00 and Lymphocytosis D72.820 Dale Thornton MD [address] [place] [address] [address] [place] [phone] 05/26/2023 Dale Thornton Other cholangitis K83.09 ; Annual physical exam Z00.00 ; Dysthymia F34.1 ; Subcutaneous nodule R22.9 and Depression screening Z13.31 Assessments Encounter Date Diagnosis (ICD Code) Assessment Notes Treatment Notes Treatment Clinical Notes Section Notes 05/20/2024 Blood tests for routine general physical examination (ICD-10 - Z00.00) 05/26/2023 Other cholangitis (ICD-10 - K83.09) doing well as long as she stays on meds 05/26/2023 Annual physical exam (ICD-10 - Z00.00) labs reviewed and discussed with patient 05/20/2024 Lymphocytosis (ICD-10 - D72.820) 05/26/2023 Dysthymia (ICD-10 - F34.1) doing much better. 05/26/2023 Subcutaneous nodule (ICD-10 - R22.9) feels soft and free moving and has been there unchanged fro years feels benign. will just observe 05/26/2023 Depression screening (ICD-10 - Z13.31) negative screen Plan Of Treatment Pending Test Test Name Order Date US ABD 03/16/2021 Complete Blood Count Auto Diff 5 Comprehensive Minier. Panel Fast 5 Lipid Panel 05/20/2024 CA echo transthoracic complete 2 XR lumbar spine 4V min 06/27/2022 UA ClnCatch+Micro w/rflx Cult 05/20/2024 Next Appt Details Provider Name:Dale boyce, 05/27/2024 11:00:00 AM, [address] [place] [address], [address], [place], [place], [phone], Insurance Providers Payer Name Payer Address Payer Phone Subscriber Number Group Number Insured Name Patient Relationship to Insured Coverage Start Date Coverage End Date BLUE BENEFIT ADM [employer] [place] [address] [address] [place] [phone] [id number] Sofía Carlin Self - patient is the insured Medical (General) History Medical History History ICD Code coloonoscopy 08/17/21 repeat 10 yrs
--- OUTSIDE RECORDS SUMMARY | 2024-05-20 09:26 | XMS_ITS ---
Author Organization Dale Thornton MD Address [address] [place] [id number] Care Team Providers Care Md Psychiatry Name Role Phone Dale Thornton Primary Care Provider [phone] REASON FOR VISIT FASTING LABS Encounters Encounter Location Date Provider Diagnosis Dale Thornton MD [address] [place] [address] Drive [address] [place] [phone] 05/20/2024 Dale Thornton Blood tests for routine general physical examination Z00.00 and Lymphocytosis D72.820 Assessments Encounter Date Diagnosis (ICD Code) Assessment Notes Treatment Notes Treatment Clinical Notes Section Notes 05/20/2024 Blood tests for routine general physical examination (ICD-10 - Z00.00) 05/20/2024 Lymphocytosis (ICD-10 - D72.820) Plan Of Treatment Pending Test Test Name Order Date Complete Blood Count Auto Diff 5 [facility] [place]. Panel Fast 5 Lipid Panel 05/20/2024 UA ClnCatch+Micro w/rflx Cult 05/20/2024 Next Appt Details Provider Name:Dale boyce, 05/27/2024 11:00:00 AM, [address] [place] [address], Suite [facility], [place], [place], [phone], Progress Notes * Sofía CARLINDOB: 6 (58 yo F)Acc No.[id number]:05/20/2024 Progress Note Patient:?Sofía CARLIN Provider:?Dale Thornton MD :1965???Age:58 Y???Sex:Female D ate:05/20/2024 Address:[address] [place], [place] [phone] Subjective: * Chief Complaints: * ???1. FASTING LABS. * Medical History:? Objective: * Vitals:? Assessment: * Assessment: 1.?Blood tests for routine g eneral physical examination - Z00.00 (Primary)???2.?Lymphocytosis - D72.820??? Plan: * Treatment: 2.?Lymphocytosis?LAB: Complete Blood Count Auto Diff ?LAB: [facility] [place]. Panel Fast ?LAB: Lipid Panel ?LAB: UA ClnCatch+Micro w/rflx Cult * * The named appointment provid er may or may not be the originator of this progress note, and it is not deemed complete until electronically signed by the appointment provider. Sign off status: Pending * Provider:?Dale Thornton MD Date:?0 05/20/2024 Generated for Marixa robles/Calvin/eTransmitting on:?05/20/2024 09:25 AM EDT
--- OUTSIDE RECORDS SUMMARY | 2024-05-20 09:26 | XMS_ITS | Patient Health Record ---
Author Organization [facility] Address [address] [place] [address] Care Team Providers Care Slope Runner Name Role Phone SALUD KRUSE PA-C Primary Care Provider Kevin Nicholson Unavailable [phone] Allergies No Known Allergies Results Component Value Reference Range Notes Complete Blood Count Auto Di ff Reviewed date:05/23/2023 07:25:01 PM Interpretation: Performing Lab:[facility], [address] [place] [phone] Notes/Report: White Blood Count 6.5 4.8-10.8 X10*3/uL [...] 0.0-0.2 /100WBC Neutrophils Absolute Auto 2.8 2.0-8.3 x10*3/uL Imm Gran Abs Auto 0.01 0.00-0.03 X10*3/uL Lymphocytes Absolute Auto 2.8 1.2-4.9 X10*3/uL Monocytes Absolute Auto 0.4 0.1-1.2 X10*3/uL Eosinophils Absolute Auto 0.5 0.0-0.4 X10*3/uL Basophils Absolute Auto 0.1 0.0-0.2 X10*3/uL NRBC Abs Auto 0.000 0.0-0.012 X10*3/uL Prothrombin Time INR Reviewed date:05/23/2023 07:25:08 PM Interpretation: Performing Lab:[address] [address] Notes/Report: Prothrombin Time 10.2 11.1-13.3 [employer] [...] Panel Reviewed date:10/02/2023 12:05:09 AM Interpretation: Performing Lab:[address] [address] Notes/Report: Bilirubin Total 0.3 0.0-1.0 mg/dL Bilirubin Direct 0.2 0.0-0.5 mg/dL Aspartate Amino Transferase 40 5-31 U/L Alanine Aminotransferase 47 0-31 U/L Total Protein 6.8 6.5-8.0 g/dL Albumin Level 4.2 3.5-5.0 g/dL Alkaline Phosphatase 94 39-117 U/L Alpha Fetoprotein Reviewed date:06/02/2023 12:23:01 AM Interpretation: Performing Lab:[address] [address] Notes/Report: Alpha Fetoprotein 2.8 Reference Range: <6.1 The use of AFP as a tumor marker in females is not recommended. This test was performed using the [place] chemiluminescent method. Values obtained from different assay methods cannot be used interchangeably. AFP levels, regardless of value, should not be interpreted as absolute evidence of the presence or absence of disease. THIS TEST WAS PERFORMED AT: [facility] [address] [place] [phone] FRANCESCO ORTEGA MD Liver Fibrosis Pnl Reviewed date:06/02/2023 12:23:15 AM Interpretation: Performing Lab:[facility], [address] [place] [phone] Notes/Report: Liver Fibrosis Score 0.06 Liver Fibrosis [...] a>0.62 and a<=1.00 : A3 (severe activity) ITY-Tkcvi-5-Macroglobuli n 141 106-279 mg/dL FIB-Haptoglobin 137 43-212 mg/dL FIB-Apolipoprotein A1 198 101-198 mg/dL FIB-Total Bilirubin 0.4 0.2-1.2 mg/dL FIB-GGT 33 3-70 U/L FIB-ALT 42 6-29 U/L Reference ID [id number] Footnote SEE NOTE The reliability of results [...] The performance characteristics have been determined by [facility]. It has not been cleared or approved by the U.S. Food and Drug Administration. Performance characteristics refer to the analytical performance of the test. [employer], the associated logo, [employer] and all associated [employer] bean are the registered trademarks of [employer]. All third democrat bean - (R) and (TM) - are the property of their respective owners. (C) 4769-8477 [employer]. All rights reserved. THIS TEST WAS PERFORMED AT: [employer] [facility] [address] [place] [address] EMILIA JIANG MD,PHD,CHESTER US abdomen comp w elastograp hy Reviewed date:10/02/2023 12:04:41 AM Interpretation: Performing Lab: Notes/Report: [address] [address] Ultrasound Report Signed Patient: Peg Carlin MR#: [id number] 54 : 1965 Acct:[id number] Age/Sex: 57 / F ADM Date: 05/23/23 Loc: HO.US Attending Dr: Kevin De Leon MD Ordering Physician: Kevin De Leon Date of Service: 05/23/23 Procedure(s): US abdomen comp w elastography Accession Number(s): [id number] cc: Dale Thornton MD; Kevin De Leon [...] in OV> 05/30/23 1218 DD/ 0835 TD/TT: Segment Producer: [place] [id number] Ultrasound Report Signed Patient: Sherif Carlin cia MR#: [id number] 54 : 1965 Acct:[id number] Age/Sex: 57 / F ADM Date: 05/23/23 Loc: HO.US Attending Dr: Kevin De Leon MD Ordering Physician: Kevin De Leon Date of Service: 05/23/23 Procedure(s): US abdomen comp w elastography Accession Number(s): [id number] cc: Dale Thornton MD; Kevin De Leon [...] signs, this rules out compensated advanced chronic maria del carmen er disease. REFERENCE: Society of Radiologi sts in Ultrasound Liver Stiffness Thresholds (2020): LIVER STIFFNESS THRESHOLDS: *Liver Stiffness equ al [...] vascular congestion, obstructive cholestasis, non-fasting state, and infiltrat lamonte [...] in OV> 05/30/23 1218 DD/ 0835 TD/TT: Segment Producer: Complete Blood Count Auto Di ff Reviewed date:10/17/2023 05:48:45 PM Interpretation: Performing Lab:[facility], [address] [place] [phone] Notes/Report: White Blood Count 8.7 4.8-10.8 X10*3/uL [...] 0.0-0.2 /100WBC Neutrophils Absolute Auto 3.9 2.0-8.3 x10*3/uL Imm Gran Abs Auto 0.03 0.00-0.03 X10*3/uL Lymphocytes Absolute Auto 3.8 1.2-4.9 X10*3/uL Monocytes Absolute Auto 0.5 0.1-1.2 X10*3/uL Eosinophils Absolute Auto 0.4 0.0-0.4 X10*3/uL Basophils Absolute Auto 0.1 0.0-0.2 X10*3/uL NRBC Abs Auto 0.000 0.0-0.012 X10*3/uL Erythrocyte Sedimentation Ra te Reviewed date:10/17/2023 05:50:07 PM Interpretation: Performing Lab:[address] [address] Notes/Report: Erythrocyte Sedimentation Rate 7 0-20 MM/HR Patients with polycythemia and many hemoglobin abnormalities may have depressed sed rates whereas patients with anemia may have elevated sed rates. Liver Panel Reviewed date:10/17/2023 05:49:15 PM Interpretation: Performing Lab:[address] [address] Notes/Report: Bilirubin Total 0.3 0.0-1.0 mg/dL Bilirubin Direct 0.1 0.0-0.5 mg/dL Aspartate Amino Transferase 20 5-31 U/L Alanine Aminotransferase 18 0-31 U/L Total Protein 7.7 6.5-8.0 g/dL Albumin Level 4.8 3.5-5.0 g/dL Alkaline Phosphatase 97 39-117 U/L C Reactive Protein Reviewed date:10/17/2023 05:49:25 PM Interpretation: Performing Lab:[address] [address] Notes/Report: C Reactive Protein < 0.10 < or = 0.50 mg/dL Reason For Referral No Information Medications Medication SIG (Take, Route, Fr equency, Duration) Notes Start Date End Date Status Aspirin 81 as needed Active Valsartan 80 MG 1 tablet Orally Once a day for 30 day(s) Active Multi Vitamin - 1 tablet Orally Once a day for 30 day(s) Active Colchicine 0.6 MG TAKE 1 TABLET BY QUINCY TH TWICE DAILY FOR 90 DAYS Active Ursodiol 300 MG TAKE TWO (2) CAPSULE S (600MG) BY MOUTH TWICE DAILY for 30 Acti ve Immunizations Vaccine Route Administration Date Status Comme nts Influenza Unknown 02/01/2020 Administered Influenza Unknown 01/28/2023 Administered Influenza Unknown 11/07/2023 Refused Social History Tobacco Use: Social History Observation Description Date Details (start date - stop date) Never Smoker NA - NA Tobacco Use/Smoking Question Answer Notes Patient is a nonsmoker Alcohol Screen Question Answer Notes Did you have a drink containing alcohol in the p ast year? 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 Problem Elevated liver enzymes level (922963404) Elevated liver function tests (R94.5) Active confirmed Problem Diverticulosis of colon (061390382) Diverticulosis of colon (K57.30) Active confirmed Problem 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) Active confirmed Problem Raised antinuclear antibody (745862238) ORION positive (R76.8) Active confirmed Vital Signs Temperature 97.8 degrees Fahrenheit 11/07/2023 Blood pressure diastolic 00 mm Hg 11/07/2023 Height 62 in 11/07/2023 Blood pressure systolic 000 mm Hg 11/07/2023 Weight 139 lb 2 oz lbs 11/07/2023 BMI 25.44 kg/m2 11/07/2023 Encounters Encounter Location Date Provider Diagnosis [facility] [address] [place] [address] 11/07/2023 Kevin De Leon Elevated liver funct ion tests R79.89 ; Primary biliary cholangitis K74.3 ; Encounter for screening for malignant neoplasm of colon Z12.11 ; Antimitochondrial antibody positive R76.[address] [facility] [address] [place] [address] 08/28/2023 Kevin De Leon Primary biliary cholangitis K74.[address] [facility] [address] [place] [address] 05/03/2024 Kevin De Leon Primary biliary cholangitis K74.3 and Elevated liver function tests R94.5 Assessments Encounter Date Diagnosis (ICD Code) Assessment Notes Treatment Notes Treatment Clinical Notes Section Notes 11/07/2023 Elevated liver function tests (ICD-10 - R79.89) Overall, Tricia appears well. 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 I did advise her to resume her normal dosage of the ursodiol at 600 mg b.i.d. and colchicine 0.6 mg b.i.d. as the medications really do not seem to be causing any adverse effects at this time. She will followup with her primary care regarding her back pain which I do not think is in relation to the ursodiol. We did review her autoimmune disease and the normal sedimentation rate and C-reactive protein are reassuring in that regard. However, I did recommend checking a celiac disease blood test given the underlying autoimmune disease and her intermittent diarrhea. In regard to her intermittent diarrhea I advised her that this seems more consistent with irritable bowel syndrome, albeit mild. I don't think this needs any particular treatment at this time but I did advise her certainly let me know if that worsens. I will plan to see her again in 6 months at which time we can repeat her abdominal ultrasound and alpha-fetoprotei n level. I did advise her to definitely call me in the interim if she has any problems or questions I can be of assistance with. Tricia was comfortable with this plan. Thank you again for allowing me to participate in Tricia's care. I shall continue to keep you advised of her progress. 11/07/2023 Primary biliary cholangitis (ICD-10 - K74.3) Overall, Tricia appears well. 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 I did advise her to resume her normal dosage of the ursodiol at 600 mg b.i.d. and colchicine 0.6 mg b.i.d. as the medications really do not seem to be causing any adverse effects at this time. She will followup with her primary care regarding her back pain which I do not think is in relation to the ursodiol. We did review her autoimmune disease and the normal sedimentation rate and C-reactive protein are reassuring in that regard. However, I did recommend checking a celiac disease blood test given the underlying autoimmune disease and her intermittent diarrhea. In regard to her intermittent diarrhea I advised her that this seems more consistent with irritable bowel syndrome, albeit mild. I don't think this needs any particular treatment at this time but I did advise her certainly let me know if that worsens. I will plan to see her again in 6 months at which time we can repeat her abdominal ultrasound and alpha-fetoprotei n level. I did advise her to definitely call me in the interim if she has any problems or questions I can be of assistance with. Tricia was comfortable with this plan. Thank you again for allowing me to participate in Tricia's care. I shall continue to keep you advised of her progress. 08/28/2023 Diarrhea (ICD-10 - R19.7) 08/28/2023 Primary biliary cholangitis (ICD-10 - K74.3) 05/03/2024 Primary biliary cholangitis (ICD-10 - K74.3) 05/03/2024 Elevated liver function tests (ICD-10 - R94.5) 11/07/2023 Encounter for screening for malignant neoplasm of colon (ICD-10 - Z12.11) Overall, Tricia appears well. 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 I did advise her to resume her normal dosage of the ursodiol at 600 mg b.i.d. and colchicine 0.6 mg b.i.d. as the medications really do not seem to be causing any adverse effects at this time. She will followup with her primary care regarding her back pain which I do not think is in relation to the ursodiol. We did review her autoimmune disease and the normal sedimentation rate and C-reactive protein are reassuring in that regard. However, I did recommend checking a celiac disease blood test given the underlying autoimmune disease and her intermittent diarrhea. In regard to her intermittent diarrhea I advised her that this seems more consistent with irritable bowel syndrome, albeit mild. I don't think this needs any particular treatment at this time but I did advise her certainly let me know if that worsens. I will plan to see her again in 6 months at which time we can repeat her abdominal ultrasound and alpha-fetoprotei n level. I did advise her to definitely call me in the interim if she has any problems or questions I can be of assistance with. Tricia was comfortable with this plan. Thank you again for allowing me to participate in Tricia's care. I shall continue to keep you advised of her progress. 11/07/2023 Antimitochondrial antibody positive (ICD-10 - R76.8) Overall, Tricia appears well. 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 I did advise her to resume her normal dosage of the ursodiol at 600 mg b.i.d. and colchicine 0.6 mg b.i.d. as the medications really do not seem to be causing any adverse effects at this time. She will followup with her primary care regarding her back pain which I do not think is in relation to the ursodiol. We did review her autoimmune disease and the normal sedimentation rate and C-reactive protein are reassuring in that regard. However, I did recommend checking a celiac disease blood test given the underlying autoimmune disease and her intermittent diarrhea. In regard to her intermittent diarrhea I advised her that this seems more consistent with irritable bowel syndrome, albeit mild. I don't think this needs any particular treatment at this time but I did advise her certainly let me know if that worsens. I will plan to see her again in 6 months at which time we can repeat her abdominal ultrasound and alpha-fetoprotei n level. I did advise her to definitely call me in the interim if she has any problems or questions I can be of assistance with. Tricia was comfortable with this plan. Thank you again for allowing me to participate in Tricia's care. I shall continue to keep you advised of her progress. 11/07/2023 Diarrhea (ICD-10 - R19.7) Overall, Tricia appears well. 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 I did advise her to resume her normal dosage of the ursodiol at 600 mg b.i.d. and colchicine 0.6 mg b.i.d. as the medications really do not seem to be causing any adverse effects at this time. She will followup with her primary care regarding her back pain which I do not think is in relation to the ursodiol. We did review her autoimmune disease and the normal sedimentation rate and C-reactive protein are reassuring in that regard. However, I did recommend checking a celiac disease blood test given the underlying autoimmune disease and her intermittent diarrhea. In regard to her intermittent diarrhea I advised her that this seems more consistent with irritable bowel syndrome, albeit mild. I don't think this needs any particular treatment at this time but I did advise her certainly let me know if that worsens. I will plan to see her again in 6 months at which time we can repeat her abdominal ultrasound and alpha-fetoprotei n level. I did advise her to definitely call me in the interim if she has any problems or questions I can be of assistance with. Tricia was comfortable with this plan. Thank you again for allowing me to participate in Tricia's care. I shall continue to keep you advised of her progress. Plan Of Treatment Pending Test Test Name Order Date LIVER PROFILE 09/04/2021 LIVER PROFILE 08/28/2023 LIVER PROFILE 08/03/2021 LIVER PROFILE 11/30/2021 LIVER PROFILE 06/26/2021 LIVER PROFILE 11/06/2022 LIVER PROFILE 05/03/2024 IRON + IBC (FE) 06/26/2021 CRP 08/28/2023 CBC w DIFF 11/06/2022 CBC w DIFF 05/03/2024 CBC w DIFF 08/28/2023 CBC w DIFF 08/03/2021 SED RATE (ESR) 08/28/2023 UNIAC-6-SRVARJCMNEN (A1A) 06/26/2021 ALPHA-FETOPROTEIN,TUMOR MARKER 3 ALPHA-FETOPROTEIN,TUMOR MARKER 5 CELIAC PANEL #10 11/07/2023 US LIVER BIOPSY CORE GUIDE 08/03/2021 FLUOR. ANTINUCLEAR AB SCREEN (RICHARD) 07/09 FLUOR. ANTINUCLEAR AB SCREEN (RICHARD) 06/08 STOOL WBC 08/28/2023 C DIFFICILE RFLX PCR 08/28/2023 Prothrombin Time INR 08/03/2021 Prothrombin Time INR 11/06/2022 Prothrombin Time INR 05/03/2024 Prothrombin Time INR 06/26/2021 Partial Thromboplastin Time 08/03/2021 Ferritin 06/26/2021 Liver Fibrosis Pnl 06/26/2021 Liver Fibrosis Pnl 11/06/2022 Liver Fibrosis Pnl 05/03/2024 Mitochondrial Antibody 06/26/2021 Mitochondrial Antibody 08/03/2021 Smooth Muscle Antibody 06/26/2021 Calprotectin, Fecal 08/28/2023 US abdomen comp w elastography 3 US abdomen comp w elastography 5 GI PANEL 08/28/2023 Future Test Test Name Order Date COLONOSCOPY 06/26/2021 Next Appt Details Provider Name:Kevin De Leon , 05/21/2024 03:00:00 PM, [address] [facility], [address], [place], [address], Insurance Providers Payer Name Payer Address Payer Phone Subscriber Number Group Number Insured Name Patient Relationship to Insured Coverage Start Date Coverage End Date [employer] [address] [address] [place] [address] [id number] PEG CARLIN Self - patient is the insured Medical (General) History Medical History History ICD Code Denies [place],DM,CVA,Lung disease,renal dise ase Anxiety Primary biliary cholangitis [...]
--- OUTSIDE RECORDS SUMMARY | 2024-05-20 09:26 | XMS_ITS ---
Author Organization Dale Thornton MD Address [address] [place] [phone] Care Team Providers Care Repair Clerk Name Role Phone Dale Thornton Primary Care Provider [phone] Allergies No Known Allergies REASON FOR VISIT [...] Problem Status W/U Status Risk Notes Problem [id number] Subcutaneous nodule (R22.9) Active confirmed Vital Signs Blood pressure systolic 124 mm Hg 05/26/19 24 Blood pressure diastolic 60 mm Hg 024 Height 61 in 05/26/2023 Weight 139 lbs 05/26/2023 BMI 26.26 kg/m2 05/26/2023 eight is down 14 pounds sin e 06-27-22 Encounters Encounter Location Date Provider Diagnosis Dale Thornton MD [address] [place], [place] [phone] 05/26/2023 Dale Thornton Other cholangitis K83.09 ; [...] Up: 1 Year, Reason: Provider Name:Dale boyce, 05/27/2024 11:00:00 AM, [address], [address], [place], [place], [phone], Progress Notes * Sofía CARLINDOB: 6 (57 yo F)Acc No.[id number]:05/26/2023 Progress Notes Patient:?Sofía Carlin Provider:?Dale Thornton MD :1965???Age:57 Y???Sex:Female D ate:05/26/2023 Address:[address] [place] [address] torie [id number] Subjective: * Chief Complaints: * ???Annual visitNO [...] yes, [place]. * Medications:?TakingVitamin D 50 MCG (2000 UT) Tablet 1 [...] every 3 daysTaking Vitamin D 50 MCG (1999 UT) Tablet 1 [...] pounds since 06-27-22. * ???Past Orders: ???Lab:Comprehensive [place]. P regan Fast (Order Date - 05/23/2023) [...] mg/dL ?Urine Blood Negative Negative - ?Specific [place] - Urine 1.015 1.005-1.025 - ?Urine Protein [...] organomegaly , no masses palpable.?RECTAL EXAM:?done by sr account executive.?FEMALE GENITOURINARY:?done by sr account executive.?EXTREMITIES:?no clubbing, cyanosis, or edema.?NEUROLOGIC:?nonfocal, motor strength normal [...] Thornton MD Date:?0 05/26/2023 Generated for Marixa robles/Calvin/eTransmitting on:?05/20/2024 09:26 AM EDT History and Physical Notes * HPI (History [...] like a lipoma RECTAL EXAM: done by sr account executive FEMALE GENITOURINARY: done by sr account executive ORAL CAVITY: mucosa moist
--- OUTSIDE RECORDS SUMMARY | 2024-05-20 09:26 | XMS_ITS ---
Author Organization Dale Thornton MD Address [address] [place], [place] [id number] Care Team Providers Care Crystalizer Tender Name Role Phone Dale Thornton Primary Care Provider [phone] Results Component Value Reference Range Notes Comprehensive [place]. Panel Fa st Reviewed date:05/23/2023 09:22:28 AM Interpretation: Performing Lab:[facility], [address] [place] [id number] Notes/Report: Sodium 143 135-145 mmol/L Potassium 4.2 3.3-5.1 mmol/L Chloride 106 96-108 mmol/L Carbon Dioxide 27 22-29 mmol/L Anion Gap 14 12-20 Blood Urea Nitrogen 12 9-16 mg/dL Creatinine 0.72 0.5-1.4 mg/dL Estimated Glomerular Filt Rate > 60 NOTE: For -German individuals, multiply the result by 1.210. Chronic [...] Panel Reviewed date:05/23/2023 09:22:08 AM Interpretation: Performing Lab:[facility], [address] [place] [id number] Notes/Report: Triglycerides 59 <150 mg/dL Desirable Triglyceride: [...] t Reviewed date:05/23/2023 06:41:21 PM Interpretation: Performing Lab:[facility], [address] [place] [id number] Notes/Report: Urine, Clean Catch Color Urine Yellow Appearance Urine Clear PH 6.0 5.0-9.0 Glucose Urine UA Negative Negative mg/dL Urine Blood Negative Negative Specific [place] - Urine 1.015 1.005-1.025 Urine Protein Negative [...] Date Provider Diagnosis Dale Thornton MD [address] [place], [place] [id number] 05/23/2023 Dale Thornton Blood tests for routine general physical examination Z00.00 and Lymphocytosis D72.820 Assessments Encounter Date Diagnosis (ICD Code) Assessment Notes Treatment Notes Treatment Clinical Notes Section Notes 05/23/2023 Blood tests for routine general physical examination (ICD-10 - Z00.00) 05/23/2023 Lymphocytosis (ICD-10 - D72.820) Plan Of Treatment Next Appt Details Provider Name:Dale Michelle ier, 05/27/2024 11:00:00 AM, [address] [facility], [address], [place], [place], [phone], Progress Notes * Sofía CARLINDOB: 6 (58 yo F)Acc No.[id number]:05/23/2023 Progress Note Patient:?Sofía CARLIN Provider:?Dale Thornton MD :1965???Age:57 Y???Sex:Female D ate:05/23/2023 Address:[address] [place], [place] [phone] Subjective: * Chief Complaints: * ???1. Yearly labs. * Medical History:? Objective: * Vitals:? Assessment: * Assessment: 1.?Blood tests for routine g eneral physical examination - Z00.00 (Primary)???2.?Lymphocytosis - D72.820??? Plan: * Treatment: 2.?Lymphocytosis?LAB: Complete Blood Count Auto Diff (Order Cancelled) ?LAB: [facility] [place]. Panel Fast (Collection Date & Time - [...] Thornton MD Date:?0 05/23/2023 Generated for Marixa ng/Faclaudiag/eTransmitting on:?05/20/2024 09:25 AM EDT
--- OUTSIDE RECORDS SUMMARY | 2024-05-20 09:26 | XMS_ITS ---
Author Organization [facility] Address [address] [place] [address] Care Team Providers Care Centrifugal Supervisor Name Role Phone SALUD KRUSE PA-C Primary Care Provider Kevin Nicohlson [phone] REASON FOR VISIT PBC Encounters Encounter Location Date Provider Diagnosis [facility] [address] [place] [address] 05/07/2024 Kevin De Leon Plan Of Treatment Next Appt Details Provider Name:Kevin De Leon , 05/21/2024 03:00:00 PM, [address], [address], [place], [address], Progress Notes * PEG BYRNE ADOB: [birth year] (58 yo F)Acc No.[id number]:05/07/2024 Progress Notes Patient:?PEG BYRNE Provider:?Kevin De Leon MD :1965???Age:58 Y???Sex:Female D ate:05/07/2024 Address:[address] [place], [place] [phone] Pcp:SALUD KRUSE PA-C Subjective: * Chief Complaints: * ???1. PBC. * Medical History:? Objective: * Vitals:? Assessment: Plan: * Treatment: * * The named appointment provid er may or may not be the originator of this progress note, and it is not deemed complete until electronically signed by the appointment provider. Sign off status: Pending * Provider:?Kevin De Leon MD Date:? 025 Generated for Mairxa robles/Calvin/Wilber on:?05/20/2024 09:26 AM EDT
--- OUTSIDE RECORDS SUMMARY | 2024-05-20 09:26 | XMS_ITS ---
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 No Points 0 Interpretation Negative Section Notes: Nonsmoker; no sig alcohol Vital Signs Temperature 97.8 degrees Fahrenheit 11/07/19 24 Blood pressure systolic 000 mm Hg 11/07/19 24 Blood pressure diastolic 00 mm Hg 024 Height 62 in 11/07/2023 Weight 139 lb 2 oz lbs 11/07/2023 BMI 25.44 kg/m2 11/07/2023 Encounters Encounter Location Date Provider Diagnosis [facility] [address] [place] [phone] 11/07/2023 Kevin De Leon Elevated liver funct ion tests R79.89 ; Primary biliary cholangitis K74.3 ; Encounter for screening for malignant neoplasm of colon Z12.11 ; Antimitochondrial antibody positive R76.8 and Diarrhea R19.7 Assessments Encounter Date Diagnosis (ICD Code) Assessment [...] keep you advised of her progress. 11/07/2023 Encounter for screening for malignant neoplasm [...] advised of her progress. Plan Of Treatment Medication Medication Name Sig Start Date Stop Date Notes Ursodiol 300 MG TAKE 2 CAPSULES BY MOUTH TWICE DAILY Colchicine 0.6 MG TAKE 1 TABLET BY QUINCY TH TWICE DAILY FOR 90 DAYS Pending Test Test Name Order Date CELIAC PANEL #10 11/07/2023 Next Appt Details Follow Up: 6 Months, Reason: Provider Name:Kevin De Leon , 05/21/2024 03:00:00 PM, [address] [place] [address], [facility], [place], [address], Progress Notes * IDRIS BYRNEIA ADOB: [birth year] (58 yo F)Acc No.[id number]:11/07/2023 Progress Notes Patient:?PEG BYRNE A Provider:?Kevin De Leon MD :1965???Age:58 Y???Sex:Female D ate:11/07/2023 Address:[address] [place], [place] [phone] Pcp:SALUD KRUSE PA-C Subjective: * Chief Complaints: * ???Patient presents today fo r biliary cholangitis * HPI: ???incontinence:? I saw Tricia in the office today for followup in regard to her underlying primary biliary cholangitis and intermittent diarrhea. ?Since I last saw Tricia one year ago she has basically been feeling well but has been troubled by some back problems and intermittent diarrhea. She has been on a regimen of ursodiol 600 mg b.i.d. and colchicine 0.6 mg b.i.d. in regard to the primary biliary cholangitis. She denies any problems with jaundice, pruritus, significant fatigue, increasing abdominal girth, abdominal pain, or edema. Her most recent laboratories earlier this month revealed a normal CBC with platelet count, completely normal liver profile, and a normal sedimentation rate and C-reactive protein. In May she had a liver fibrosis score of F0 and a normal alpha- fetoprotein level. Her abdominal ultrasound in May revealed a normal-appearing liver without any sign of liver mass nor biliary disease. There was no evidence of any splenomegaly or ascites. ?In regard to her back pain she did stop the morning dose of her ursodiol one or 2 weeks ago thinking that could possibly be causing the back pain but she did not really notice any significant improvement. She also stopped her colchicine in regard to the intermittent diarrhea but also did not notice any definitive improvement from having stopped that. In regard to the diarrhea, she describes that this occurs once in the middle of the day after lunch, but not on a daily basis. She has a normal bowel movement every morning. She denies any more frequent loose stools than the one time per day in the afternoon. She denies any signs of bleeding, fevers, nor abdominal pain. She did have a negative screening colonoscopy in 2021. ?She denies any significant heartburn, dysphagia, anorexia, nausea, vomiting, nor early satiety. She denies any known family history of inflammatory bowel disease or celiac disease. * ROS:?General/Constitutional:?Change in appetite?denies.?Chills?denies.?Fatigue?denies.?Ophthalmologic:?Comments?all negative.?ENT:?Comments?all negative.?Respiratory:?hemoptysis?denies.?Cough?denies.?Cardiovascular:?Chest pain?denies.?Orthopnea?denies.?Gastrointestinal:?Comments?See HPI for details.?Genitourinary:?Hematuria?denies.?Dysuria?denies.?Musculoskeletal:?Painful joints?denies.?Weakness?denies.?Skin:?Itching?denies.?Rash?denies.?Neurologic:?Headache?denies.?Seizures?denies.?Psychiatric:?Comments?all negative.? * Medical History:? * Surgical History:?Trigger th umb--right hand * Hospitalization/Major Diagno stic Procedure:?No Hospitalization History. * Family History:?Father: tevin chang.?Mother: alive.? No known hx of colon cancer nor liver disease. * Social History:?Tobacco Use:?Tobacco Use/Smoking?Patient is a?nonsmoker.?Drugs/Alcohol:?Alcohol Screen?Did you have a drink containing alcohol in the past year??No,?Points?0,?Interpretation?Negative.?Miscellaneous:?Marital status: . 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. ???Nonsmoker; no sig alcohol. * Medications:?TakingMulti Vit peña - Tablet 1 tablet Orally Once a dayValsartan 80 MG Tablet 1 tablet Orally Once a dayAspirin 81 , Notes: as neededUrsodiol 300 MG Capsule TAKE 2 CAPSULES BY MOUTH TWICE DAILY Colchicine 0.6 MG Tablet TAKE 1 TABLET BY MOUTH TWICE DAILY FOR 90 DAYS Taking Multi Vitamin - Tablet 1 tablet Orally Once a dayTaking Valsartan 80 MG Tablet 1 tablet Orally Once a dayTaking Aspirin 81 , Notes: as neededTaking Ursodiol 300 MG Capsule TAKE 2 CAPSULES BY MOUTH TWICE DAILY Taking Colchicine 0.6 MG Tablet TAKE 1 TABLET BY MOUTH TWICE DAILY FOR 90 DAYS DiscontinuedTurmeric Milk Thistle Vitamin D Valsartan-hydroCHLOROthiazide 80- 12.5 MG Tablet Oral Medication List reviewed and reconciled with the patientDiscontinued Turmeric Discontinued Milk Thistle Discontinued Vitamin D Discontinued Valsartan-hydroCHLOROthiazide 80-12.5 MG Tablet Oral Medication List reviewed and reconciled with the patient * Allergies:?N.K.D.A.yes[Aller gies Verified] Objective: * Vitals:?Wt: 139 lb 2 oz, Ht: 62 in, BMI:25.44 Index, BP: 000/00 mm Hg, Temp: 97.8. * Examination: ???General Examination: ?GENERAL APPEARANCE:?pleasant, well nourished, well developed, in no acute distress.?EYES:?sclera non-icteric.?ORAL CAVITY:?mucosa moist.?NECK/THYROID:?no cervical lymphadenopathy, neck supple.?SKIN:?nonjaundiced, no spider angiomata.?HEART:?S1, S2 normal.?LUNGS:?clear to auscultation bilaterally.?ABDOMEN:?normal bowel sounds, no guarding or rigidity, no guarding or rigidity, no masses palpable, soft, nontender, nondistended.?EXTREMITIES:?no edema.?NEUROLOGIC:?alert and oriented.? Assessment: * Assessment: 1.?Primary biliary cholangit is - K74.3 (Primary)?2.?Elevated liver function tests - R79.89?3.?Encounter for screening for malignant neoplasm of colon - Z12.11?4.?Antimitochondrial antibody positive - R76.8?5.?Diarrhea - R19.7? Overall, Tricia appears well. Her underlying primary [...] we can repeat her abdominal ultrasound and alpha-fetoprotein level. I did advise her to definitely call me in the interim if she has any problems or questions I can be of assistance with. Tricia was comfortable with this plan. Thank you again for allowing me to participate in Tricia's care. I shall continue to keep you advised of her progress. Plan: * Treatment: 2.?Others? Continue Colchicine Tablet, 0.6 MG, TAKE 1 TABLET BY MOUTH TWICE DAILY FOR 90 DAYS;?Continue Ursodiol Capsule, 300 MG, TAKE 2 CAPSULES BY MOUTH TWICE DAILY.?? * Immunizations:? Influenza (Not administered - Refused: Patient decision) * Procedure Codes:?3017F COLOR ECTAL CA SCREEN DOC CZY9906M TOBACCO NON-[id number] BP SCR NOT PRFRM REC REASON NOS * Preventive Medicine:? ??Counseling:?Care goal follow-up plan:?Above Normal BMI Follow-up?Giving encouragement to exercise,?BMI management provided?Yes.? * Follow Up:?6 Months * * Sign off status: Completed true * Provider:?Kevin De Leon MD Date:? 024 Generated for Marixa robles/Calvin/Isabelasmitting on:?05/20/2024 09:26 AM EDT History and Physical Notes * HPI (History of Present Illness) Category Sub-Category Detail Notes Category Not es incontinence I saw Tricia in the office today for followup in regard to her underlying primary biliary cholangitis and intermittent diarrhea. Since I last saw Tricia one year ago she has basically been feeling well but has been troubled by some back problems and intermittent diarrhea. She has been on a regimen of ursodiol 600 mg b.i.d. and colchicine 0.6 mg b.i.d. in regard to the primary biliary cholangitis. She denies any problems with jaundice, pruritus, significant fatigue, increasing abdominal girth, abdominal pain, or edema. Her most recent laboratories earlier this month revealed a normal CBC with platelet count, completely normal liver profile, and a normal sedimentation rate and C-reactive protein. In May she had a liver fibrosis score of F0 and a normal alpha-fetoprotein level. Her abdominal ultrasound in May revealed a normal-appearing liver without any sign of liver mass nor biliary disease. There was no evidence of any splenomegaly or ascites. In regard to her back pain she did stop the morning dose of her ursodiol one or 2 weeks ago thinking that could possibly be causing the back pain but she did not really notice any significant improvement. She also stopped her colchicine in regard to the intermittent diarrhea but also did not notice any definitive improvement from having stopped that. In regard to the diarrhea, she describes that this occurs once in the middle of the day after lunch, but not on a daily basis. She has a normal bowel movement every morning. She denies any more frequent loose stools than the one time per day in the afternoon. She denies any signs of bleeding, fevers, nor abdominal pain. She did have a negative screening colonoscopy in 2021. She denies any significant heartburn, dysphagia, anorexia, nausea, vomiting, nor early satiety. She denies any known family history of inflammatory bowel disease or celiac disease. Examination Category Sub-Category Detail Notes Category Not es General Examination GENERAL APPEARANCE: pleasant , well [...]
[2024-05-20 11:33] LABS: MANUAL DIFF FLAG NO
[2024-05-20 11:59] LABS: Basophils Percent Auto 0.4 % (0-2); Eosinophils Absolute Auto 0.3 X10*3/uL (0.0-0.4); Hemoglobin 12.5 g/dl (12.0-16.0); Imm Gran Abs Auto 0.01 X10*3/uL (0.00-0.03); Imm Gran Pct Auto 0.1 % (0.0-0.4); Lymphocytes Absolute Auto 3.5 X10*3/uL (1.2-4.9); Lymphocytes Percent Auto 38.9 % (20-40); Mean Corpuscular HGB Conc 32.9 g/dl (31.0-35.0); Mean Corpuscular Hemoglobin 30.6 pg (27.0-33.0); Mean Corpuscular Volume 93.1 fL (80.0-98.0); Mean Platelet Volume 9.4 fL (9.4-12.3); Monocytes Absolute Auto 0.4 X10*3/uL (0.1-1.2); Monocytes Percent Auto 4.7 % (2-11); Neutrophils Absolute Auto 4.8 x10*3/uL (2.0-8.3); Neutrophils Percent Auto 52.9 % (45-73); Platelet Count 370 X10*3/uL (160-400); Red Blood Count 4.08 X10*6/uL (4.20-5.50); Red Cell Distribution Width 13.2 % (11.0-16.0); White Blood Count 9.1 X10*3/uL (4.8-10.8)
[2024-05-20 12:03] LABS: INTERNATIONAL NORM RATIO 0.9 (0.9-1.1); Prothrombin Time 10.7 SEC (10.9-12.4)
[2024-05-20 12:35] LABS: Alanine Aminotransferase 26 U/L (0-31); Albumin Level 4.4 g/dL (3.5-5.0); Alkaline Phosphatase 106 U/L (39-117); Aspartate Amino Transferase 23 U/L (5-31); Bilirubin Direct < 0.2 mg/dL (0.0-0.5); Bilirubin Total 0.2 mg/dL (0.0-1.0); Total Protein 7.5 g/dL (6.5-8.0)
[2024-05-24 13:08] LABS: Alpha Fetoprotein 3.2 ng/mL
[2024-05-27 15:32] LABS: FIB-ALT 17 U/L (6-29); FIB-Alpha-2-Macroglobulin 171 mg/dL (106-279); FIB-Apolipoprotein A1 195 mg/dL (101-198); FIB-GGT 33 U/L (3-70); FIB-Haptoglobin 184 mg/dL (43-212); FIB-Total Bilirubin 0.3 mg/dL (0.2-1.2); Liver Fibrosis Score 0.06; Liver Fibrosis Stage F0; Nec Inflam Act Grade A0; Nec Inflam Act Score 0.04
== END 2024-05-20 08:41 | disposition home or self-care (01) ==
LOC: HO.LAB 08:40
PROVIDERS: PCP Physician Assistant Medical; Visit Provider Internal Medicine
DX: K74.3 Primary biliary cirrhosis (principal); R94.5 Abnormal results of liver function studies
CPT/HCPCS: 36415; 80076; 81596; 82105; 85025; 85610

== ENCOUNTER 2024-07-06 15:29 | Outpatient (AMB) | payer OTHER, SELFPAY ==
[2024-07-06 15:33] VITALS: BMI 24.9
--- NOTE | 2024-07-06 15:33 | A.OFFVIS_ITS ---
Vital Signs 07/06/24 15:33 Height 5 ft 2 in Weight 136 lb BMI 24.9 Intake Visit Reasons: New prob- LT thumb pain Intake Note: Sofía 59 yr old right hand dominant female presents today for her left thumb pain. States pain started about 6 weeks ago. No injury she can recall just probably due to over use. States pain is on her MCP of her volar aspect of hand. 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 Denies numbness or tingling. Right hand thumb trigger release with Dr Barrios on 05/31/21 Allergies No Known Allergies Allergy (Verified 07/06/24 15:37) HPI HPI New prob- LT thumb pain: Details: Sofía is a 59 year old right hand dominant woman who returns with complaints of left thumb pain. She complains of pain at the base of her left thumb. She denies any injuries, and says this began ~6 weeks ago. She says this is likely from overuse of her thumb. She denies any locking or catching of her thumb. 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 Polyarthralgia [place] positive Surgical History History of hand surgery Family History Sister Type 1 diabetes mellitus Social History Household Members: Spouse and Family Housing: House Are you a primary career coach to a significant other at home: No Do you presently have visiting nurse or other home services: No 75 years or older and lives alone: No Alcohol intake: current Alcohol intake frequency: does not drink Alcohol type: hard liquor Patient Tobacco Use Status: Never used Tobacco e-Cigarette/Vaping Use: Never Used Second Hand Smoke Exposure: No Substance Use Type: Marijuana service: No Current occupational status: employed 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 Current occupational exposures/hazards: No Cognitive needs: No Hearing needs: No Vision needs: No Review of Systems Const All systems reviewed & are unremarkable except as noted in HPI and below Physical Exam Vital Signs: BMI result Body Mass Index 24.9 Const General: cooperative, healthy appearing and no acute distress Orientation/consciousness: patient oriented x3 HEENT Head: Yes normocephalic and Yes atraumatic Eyes EOM: EOMs intact bilaterally Resp Effort & Inspection: normal respiratory effort and able to speak in complete sentences Cardio Jugular venous distension: no JVD Skin General skin exam: turgor normal Rashes: no rashes Neuro General: patient oriented x3 Extrem Other: Evaluation of Left Upper Extremity: The patient is alert, oriented, and in no acute distress Neuro: Median, Ulnar, Radial nerves motor and sensory intact and sensation is normal to the tips of all digits Vascular: Cap refill brisk ROM: She can make a fist and extend all her digits No locking or catching most Tender over the a1 candi of the thumb Some prominence over the a1 candi Skin: No lacerations or abrasions. General: No Ecchymosis. No Erythema or evidence of infection. Psych Appearance: grossly normal Affect: normal affect Attitude: cooperative Assessment & Plan Assessment & Plan (1) Pain of left thumb: Code(s): M79.645 - Pain in left finger(s) Category: Medical (2) Polyarthralgia: Code(s): M25.50 - Pain in unspecified joint Category: Medical Plan Assessment & Plan: 1. Left thumb pain, possible pre-trigger tenosynovitis No locking or catching today in clinic I educated her about this condition I discussed operative and non-operative treatment options The patient would like to proceed with an injection, however she says she has plans this weekend and she does not want to be in pain before her plans She was fitted for a comfort cool splint to be worn with daily activities She will follow up prn to discuss a possible steroid injection 2. Right thumb APB muscle strain Secondary to using a new mouse & overuse No complaints today 3. Right trigger thumb, S/P release DOS: 05/31/21 Resolved. Scribed for Elena Barrios MD by Billy Ca emergency medical dispatcher, on 07/06/24 at 3:45 PM, EST. Coding Level of Care Code Est Pt Level 3 (93048) Diagnoses Pain of left thumb M79.645 Polyarthralgia M25.50
== END 2024-07-06 15:55 | disposition home or self-care (01) ==
LOC: HO.HOS 15:30
PROVIDERS: PCP Physician Assistant Medical; Visit Provider Orthopaedic Surgery
DX: M79.645 Pain in left finger(s) (principal); M25.59 Pain in other specified joint
CPT/HCPCS: 99213

== ENCOUNTER → 2024-07-06 15:29 | Outpatient (BNVA) | payer OTHER, SELFPAY | PROVIDERS: PCP Physician Assistant Medical; Visit Provider Orthopaedic Surgery ==

== ENCOUNTER 2024-07-16 08:21 | Outpatient (REF) | payer OTHER, SELFPAY ==
--- NOTE | ~2024-07-16 | US_ITS ---
EXAMINATION: US DIAGNOSTIC ULTRASOUND BREAST, RIGHT CLINICAL INFORMATION: Palpable right lump superiorly just below the clavicle. Lump is too superior to be seen on mammography.. COMPARISON: Comparison is made with relevant prior imaging. TECHNIQUE: Ultrasound of the breast is performed with real-time thakur scale imaging and color Doppler. FINDINGS: Targeted color Doppler ultrasound scanning just below the calycle right superior chest wall demonstrates an isoechoic oval circumscribed parallel mass consistent with a lipoma measuring 25 x 37 by approximately 6 mm. Results are discussed with the patient at time of visit. US/US breast RT limited mamm only IMPRESSION: Isoechoic solid mass consistent with a probable lipoma in the area the patient's palpable lump just under the right clavicle. Benign. Recommend clinical evaluation and follow-up. If there is clinical concern follow-up diagnostic could be considered. ASSESSMENT: BI-RADS 2: Benign RECOMMENDATION: Clinical evaluation and follow-up. This patient's information was entered into a reminder system with a target due date for their next mammogram. Electronically signed by: Elizabet Cox DO 07/16/2024 10:56 AM EDT
== END 2024-07-16 08:22 | disposition home or self-care (01) ==
LOC: HO.MAMMO 08:21
PROVIDERS: PCP Physician Assistant Medical; Visit Provider Physician Assistant Medical
DX: N63.11 Unspecified lump in the right breast, upper outer quadrant (principal)
CPT/HCPCS: 76642

== ENCOUNTER → 2024-07-16 08:30 | Outpatient (BNV) | payer OTHER, SELFPAY | PROVIDERS: PCP Physician Assistant Medical; Visit Provider Internal Medicine | DX: N63.11 Unspecified lump in the right breast, upper outer quadrant (principal) | CPT/HCPCS: 76642 ==

== ENCOUNTER 2024-09-15 14:40 | Outpatient (AMB) | payer OTHER, SELFPAY ==
--- NOTE | 2024-09-15 14:55 | MHC.OFFVIS ---
Vital Signs 09/15/24 14:56 Height 5 ft 2 in Weight 136 lb BMI 24.9 Intake Visit Reasons: O/V LT Thumb injection Intake Note: Sofía 59 yr old female presents today for a follow up visit for her left thumb pain. At last visit in July, patient was offered an injection however patient refuse due to having plans during that weekend. Patient is here today for injection. Allergies No Known Allergies Allergy (Verified 09/15/24 14:58) HPI HPI O/V LT Thumb injection: Details: Sofía is a 59 year old right hand dominant woman who returns to discuss her left trigger thumb. She complains that her left trigger thumb is now locked and has been for ~2 weeks now. She says she now has pain radiating from the base of her thumb into her wrist. She denies any numbness or tingling. She has been wearing her comfort cool brace but says she has some soreness when she removes this. 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 Polyarthralgia ORION positive Surgical History History of hand surgery Family History Sister Type 1 diabetes mellitus Social History Household Members: Spouse and Family Housing: House Are you a primary care trainer to a significant other at home: No Do you presently have visiting nurse or other home services: No 75 years or older and lives alone: No Alcohol intake: current Alcohol intake frequency: does not drink Alcohol type: hard liquor Patient Tobacco Use Status: Never used Tobacco e-Cigarette/Vaping Use: Never Used Second Hand Smoke Exposure: No Substance Use Type: Marijuana service: No 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 occupational status: employed 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 Current occupational exposures/hazards: No Cognitive needs: No Hearing needs: No Vision needs: No Physical Exam Vital Signs: BMI result Body Mass Index 24.9 Extrem Other: Evaluation of Left Upper Extremity: The patient is alert, oriented, and in no acute distress sensation is normal to the tips of all digits Cap refill brisk ROM: She can make a fist and extend all digits except for her thumb Left thumb is visibly locked in flexion She is unable to extend her thumb IP joint even to neutral Good active flexion Most Tender over the a1 candi of the thumb Some prominence over the a1 candi Assessment & Plan Assessment & Plan (1) Trigger thumb, left thumb: Code(s): M65.312 - Trigger thumb, left thumb Category: Medical (2) Polyarthralgia: Code(s): M25.50 - Pain in unspecified joint Category: Medical Plan Assessment & Plan: 1. Left trigger thumb Thumb locked in flexion today in clinic I educated her about this condition I discussed operative and non-operative treatment options The patient would like to proceed with surgery The risks and benefits of operative treatment were discussed with the patient and the patient wishes to proceed with surgery. These risks include, but are not limited to risk of damage to blood vessels, nerves, tendons, infection, recurrence, incomplete relief of preoperative symptoms, persistent pain, possible need for further surgery and the risks associated with regional blocks and anesthesia. The plan is to take the patient to the operating room sometime next week for the following procedures: 1. Left trigger thumb release, under local All of the preoperative paperwork including the consent was reviewed today. All the patient's questions were answered. The patient understands that they will be contacted by our neurosurgery research director soon to schedule this procedure She denies Diabetes, blood thinners, asthma, heart, lung, kidney issues 2. Right thumb APB muscle strain Secondary to using a new mouse & overuse No complaints today 3. Right trigger thumb, S/P release DOS: 05/31/21 Resolved. Scribed for Elena Barrios MD by Billy Ca, medical doctor, on 09/15/24 at 3:00 PM, EST. Coding Level of Care Code Est Pt Level 4 (73582) Diagnoses Trigger thumb, left thumb M65.312 Polyarthralgia M25.50
[2024-09-15 14:56] VITALS: BMI 24.9
--- OUTSIDE RECORDS SUMMARY | 2024-09-15 15:11 | XMS_ITS | Patient Health Record ---
Author Organization [facility] Address [address] [place] [id number] Care Team Providers Care Blending Line Attendant Name Role Phone SALUD KRUSE PA-C Primary Care Provider Kevin Nicholson Unavailable [phone] Allergies No Known Allergies Results Component Value Reference Range Notes Complete Blood Count Auto Di ff Reviewed date:10/17/2023 05:48:45 PM Interpretation: Performing Lab:[facility], [address] [place] [phone] Notes/Report: White Blood Count 8.7 4.8-10.8 X10*3/uL [...] te Reviewed date:10/17/2023 05:50:07 PM Interpretation: Performing Lab:[address] [phone] Notes/Report: Erythrocyte Sedimentation Rate 7 0-20 MM/HR Patients with polycythemia and many hemoglobin abnormalities may have depressed sed rates whereas patients with anemia may have elevated sed rates. Liver Panel Reviewed date:10/17/2023 05:49:15 PM Interpretation: Performing Lab:[address] [phone] Notes/Report: Bilirubin Total 0.3 0.0-1.0 mg/dL Bilirubin Direct 0.1 0.0-0.5 mg/dL Aspartate Amino Transferase 20 5-31 U/L Alanine Aminotransferase 18 0-31 U/L Total Protein 7.7 6.5-8.0 g/dL Albumin Level 4.8 3.5-5.0 g/dL Alkaline Phosphatase 97 39-117 U/L C Reactive Protein Reviewed date:10/17/2023 05:49:25 PM Interpretation: Performing Lab:[address] [phone] Notes/Report: C Reactive Protein < 0.10 < or = 0.50 mg/dL Complete Blood Count Auto Di ff Reviewed date:05/20/2024 06:34:16 PM Interpretation: Performing Lab:[address] [phone] Notes/Report: White Blood Count 9.1 4.8-10.8 X10*3/uL Red Blood Count 4.08 4.20-5.50 X10*6/uL Hemoglobin 12.5 12.0-16.0 g/dl Hematocrit 38.0 37.0-47.0 % Mean Corpuscular Volume 93.1 80.0-98.0 fL Mean Corpuscular Hemoglobin 30.6 27.0-33.0 pg Mean Corpuscular HGB Conc 32.9 31.0-35.0 g/dl Red Cell Distribution Width 13.2 11.0-16.0 % Platelet Count 370 160-400 X10*3/uL Mean Platelet Volume 9.4 9.4-12.3 fL Neutrophils Percent Auto 52.9 45-73 % Imm Gran Pct Auto 0.1 0.0-0.4 % Lymphocytes Percent Auto 38.9 20-40 % Monocytes Percent Auto 4.7 2-11 % Eosinophils Percent Auto 3.0 0-4 % Basophils Percent Auto 0.4 0-2 % NRBC Pct Auto 0.0 0.0-0.2 /100WBC Neutrophils Absolute Auto 4.8 2.0-8.3 x10*3/u L Imm Gran Abs Auto 0.01 0.00-0.03 X10*3/uL Lymphocytes Absolute Auto 3.5 1.2-4.9 X10*3/u L Monocytes Absolute Auto 0.4 0.1-1.2 X10*3/uL Eosinophils Absolute Auto 0.3 0.0-0.4 X10*3/u L Basophils Absolute Auto 0.0 0.0-0.2 X10*3/uL NRBC Abs Auto 0.000 0.0-0.012 X10*3/uL Prothrombin Time INR Reviewed date:05/20/2024 06:27:17 PM Interpretation: Performing Lab:[facility], [address] [place] [phone] Notes/Report: Prothrombin Time 10.7 10.9-12.4 SEC INTERNATIONAL NORM RATIO 0.9 0.9-1.1 INTERNATIONAL NORMALIZED RATIO (INR) REFERENCE RANGES [...] valves: 2.5 - 3.5 Liver Panel Reviewed date:05/20/2024 06:26:25 PM Interpretation: Performing Lab:[address] [phone] Notes/Report: Bilirubin Total 0.2 0.0-1.0 mg/dL Bilirubin Direct < 0.2 0.0-0.5 mg/dL Aspartate Amino Transferase 23 5-31 U/L Alanine Aminotransferase 26 0-31 U/L Total Protein 7.5 6.5-8.0 g/dL Albumin Level 4.4 3.5-5.0 g/dL Alkaline Phosphatase 106 39-117 U/L Alpha Fetoprotein Reviewed date:06/10/2024 05:11:31 PM Interpretation: Performing Lab:[facility], [address] [place] [phone] Notes/Report: Alpha Fetoprotein 3.2 Reference Range: <6.1 The use of AFP as a tumor marker in females is not recommended. This test was performed using the [place] chemiluminescent method. Values obtained from different assay methods cannot be used interchangeably. AFP levels, regardless of value, should not be interpreted as absolute evidence of the presence or absence of disease. THIS TEST WAS PERFORMED AT: [facility] [address] [address] FRANCESCO ORTEGA MD Liver Fibrosis Pnl Reviewed date:06/10/2024 05:11:05 PM Interpretation: Performing Lab:[address] [phone] Notes/Report: Liver Fibrosis Score 0.06 Liver Fibrosis [...] F4 (severe fibrosis) Nec Inflam Act Score 0.04 Nec Inflam Act Grade A0 Nec Inflam Act Interpretation SEE NOTE no activity ActiTest Score (a) Metavir Score a>=0 and a<=0.17 : A0 (no activity) a>0.17 and a<=0.29 : A0-A1 (no activity) a>0.29 and a<=0.36 : A1 (minimal activity) a>0.36 and a<=0.52 : A1-A2 (minimal activity) a>0.52 and a<=0.60 : A2 (significant activity) a>0.60 and a<=0.62 : A2-A3 (significant activity) a>0.62 and a<=1.00 : A3 (severe activity) NDP-Wxbrb-1-Macroglobulin 171 106-279 mg/dL FIB-Haptoglobin 184 43-212 mg/dL FIB-Apolipoprotein A1 195 101-198 mg/dL FIB-Total Bilirubin 0.3 0.2-1.2 mg/dL FIB-GGT 33 3-70 U/L FIB-ALT 17 6-29 U/L Reference ID [id number] Footnote SEE NOTE The reliability of results [...] The performance characteristics have been determined by [employer] [facility]. It has not been cleared or approved by the U.S. Food and Drug Administration. Performance characteristics refer to the analytical performance of the test. [employer], [employer], the associated logo, [employer]) and all associated [employer] bean are the registered trademarks of [employer]. All third constitution party bean - (R) and (TM) - are the property of their respective owners. (C) 2201-7893 [employer]. All rights reserved. THIS TEST WAS PERFORMED AT: [facility] [place] [address] [place] [address] EMILIA JIANG MD,PHD,[place] Reason For Referral No Information Medications Medication SIG (Take, Route, Frequency, Duration) Notes Start Date End Date Status Ursodiol 300 MG TAKE TWO (2) CAPSULE S (600MG) BY MOUTH TWICE DAILY for 30 Active Aspirin 81 as needed Active Valsartan 80 MG 1 tablet Orally Once a day for 30 day(s) Active Multi Vitamin - 1 tablet Orally Once a day for 30 day(s) Active Colchicine 0.6 MG TAKE 1 TABLET BY QUINCY TH TWICE DAILY FOR 90 DAYS for 90 Active Calcium 600 MG 1 tablet with meals Orally Twice a day Active Vitamin D 50 MCG (2000 UT) 1 tablet Orally Once a day Active Alendronate Sodium 70 MG Oral for 84 Days Active Colchicine TAKE 1 TABLET BY QUINCY TH TWICE A DAY FOR 30 DAYS Active Gabapentin 300 MG Oral for 30 Days Active Ursodiol TAKE TWO (2) CAPSULE S (600MG) BY MOUTH TWICE DAILY Active Ursodiol 300 MG Oral for 30 Days Active Immunizations Vaccine Route Administration Date Status [...] Problem Status W/U Status Risk Notes Problem [id number] Encounter for screening for malignant neoplasm of colon (Z12.11) Active confirmed Problem Diarrhea (66445317) Diarrhea (R19.7) Active confirmed Problem [id number] Elevated liver function tests (R79.89) Active confirmed Problem Primary biliary cholangitis (81905216) Primary biliary cholangitis (K74.3) Active confirmed Problem Elevated liver enzymes level (762506443) Elevated liver function tests (R94.5) Active confirmed Problem Diverticulosis of colon (596740364) Diverticulosis of colon (K57.30) Active confirmed Problem 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) Active confirmed Problem Raised antinuclear antibody (915774802) ORION positive (R76.8) Active confirmed Vital Signs Temperature 97.3 degrees Fahrenheit 05/21/2024 Blood pressure diastolic 01 mm Hg 05/21/2024 Height 62 in 05/21/2024 Blood pressure systolic 001 mm Hg 05/21/2024 Weight 136.2 lbs 05/21/2024 BMI 24.91 kg/m2 05/21/2024 Encounters Encounter Location Date Provider Diagnosis [facility] [address] [place] [phone] 11/07/2023 Kevin De Leon Elevated liver funct ion tests R79.89 ; Primary biliary cholangitis K74.3 ; Encounter for screening for malignant neoplasm of colon Z12.11 ; Antimitochondrial antibody positive R76.8 and Diarrhea R19.7 [facility] [place] [address] [place] [phone] 05/21/2024 Kevin De Leon Primary biliary cholangitis K74.3 and Encounter for screening for malignant neoplasm of colon Z12.11 [facility] [address] [place] [phone] 05/03/2024 Kevin De Leon Primary biliary cholangitis [...] to keep you advised of her progress. 05/21/2024 Primary biliary cholangitis (ICD-10 - K74.3) 05/03/2024 [...] to keep you advised of her progress. 05/21/2024 Encounter for screening for malignant neoplasm of [...] Test Test Name Order Date LIVER PROFILE 11/30/2021 LIVER PROFILE 06/26/2021 LIVER PROFILE 11/06/2022 LIVER PROFILE 05/03/2024 LIVER PROFILE 09/04/2021 LIVER PROFILE 08/28/2023 LIVER PROFILE 08/03/2021 IRON + IBC (FE) 06/26/2021 CRP 08/28/2023 CBC w DIFF 08/28/2023 CBC w DIFF 08/03/2021 CBC w DIFF 11/06/2022 CBC w DIFF 05/03/2024 SED RATE (ESR) 08/28/2023 [id number] (A1A) 06/26/2021 ALPHA-FETOPROTEIN,TUMOR MARKER ALPHA-FETOPROTEIN,TUMOR MARKER CELIAC PANEL #10 11/07/2023 US LIVER BIOPSY CORE GUIDE 08/03/2021 FLUOR. ANTINUCLEAR AB SCREEN (RICHARD) 07/09 FLUOR. ANTINUCLEAR AB SCREEN (RICHARD) 06/08 STOOL WBC 08/28/2023 C DIFFICILE RFLX PCR 08/28/2023 Prothrombin Time INR 11/06/2022 Prothrombin Time INR 05/03/2024 Prothrombin Time INR 06/26/2021 Prothrombin Time INR 08/03/2021 Partial Thromboplastin Time 08/03/2021 Ferritin 06/26/2021 Liver Fibrosis Pnl 11/06/2022 Liver Fibrosis Pnl 05/03/2024 Liver Fibrosis Pnl 06/26/2021 Mitochondrial Antibody 08/03/2021 Mitochondrial Antibody 06/26/2021 Smooth Muscle Antibody 06/26/2021 Calprotectin, Fecal 08/28/2023 US abdomen comp w elastography 3 US abdomen comp w elastography 5 GI PANEL 08/28/2023 Future Test Test Name Order Date COLONOSCOPY 06/26/2021 Next Appt Details Provider Name:Kevin De Leon , 05/27/2025 02:30:00 PM, [address], [address], [place], [address], Insurance Providers Payer Name Payer Address Payer Phone Subscriber Number Group Number Insured Name Patient Relationship to Insured Coverage Start Date Coverage End Date [employer] [address] [address] [place] [address] [id number] PEG BYRNE Self - patient is the insured [facility] [address] [address] [place] [address] [id number] PEG BYRNE Self - patient is the insured 0 1 Medical (General) History Medical History History ICD Code Denies ID,DM,CVA,Lung disease,renal dise ase Anxiety Primary biliary cholangitis with +AMA and ORION, and liver biopsy in 08/2021 with a Stage 1-2 level of disease with some fibrosis and inflammation with an associated component of bile duct injury. She was started on ursodiol and colchicine in the summer of 2021. Negative colonoscopy in 08/2021 Hypertension osteoporosis osteopenia compression fracture Surgical History Surgery Date(Month/Year) Trigger thumb--right hand
== END 2024-09-15 15:57 | disposition home or self-care (01) ==
LOC: HO.HOS 14:40
PROVIDERS: PCP Physician Assistant Medical; Visit Provider Orthopaedic Surgery
DX: M65.312 Trigger thumb, left thumb (principal); M25.50 Pain in unspecified joint
CPT/HCPCS: 99214

== ENCOUNTER 2024-09-20 07:36 | Day surgery (SDC) | payer OTHER, SELFPAY ==
[2024-09-20 08:07] VITALS: BP 113/55; PULSE 70; RESP 18; TEMP 36.7; O2SAT 96
[2024-09-20 08:19] VITALS: BMI 24.9
--- NOTE | 2024-09-20 08:29 | MHC.SHP ---
Pre-Procedural Eval Section A - 24 Hr Update-Section A only Date of Service: 09/20/24 The patient is an INPATIENT: No Changes since office visit: No Cold of Flu in the past 2 weeks, No New Medical Problems, No Changes in Medication and No Patient answered all questions The patient has been examined within 24 hours of the surgical procedure. The History & Physical has been completed within 30 days and I have reviewed it.: Yes Section B - Complete if H&P > 30 days Chief Complaint: Trigger thumb, left thumb Allergies: Allergies Allergy/AdvReac Type Severity Reaction Status Date / Time No Known Allergies Allergy Verified 09/20/24 08:08 Plan I have reviewed the history and physical and performed a pertinent physical examination on my patient. No changes have occurred unless specified. Time Spent With Patient Time: Total time managing care of this patient today ____ minutes.
--- NOTE | 2024-09-20 08:29 | W.PM.OPN ---
Operative Note Operative Note Date of Service: 09/20/24 Narrative: Operative Note Preop diagnosis: 1. Left trigger thumb, locked in flexion Postop diagnosis: Same Procedure: 1. Left thumb A1 candi release Surgeon: Elena Barrios MD Entertainment Reporter: Antonio SCHNEIDER Anesthesia: local block using 1% lidocaine with epinephrine Findings: Left thumb initially locked in flexion. Thickened A1 candi. Significant hourglass deformity. Much improved range of motion with locking or catching after A1 candi release EBL: Less than 5 mL Tourniquet time: None Specimens: None Complications: None Disposition: Brought to recovery room in stable condition Plan: Follow-up for 10-14 days for wound check and suture removal Indications: The patient is 59 years old, with a left trigger thumb locked in flexion that has been unresponsive to nonoperative management. The risks and benefits of operative treatment including but not limited to risk of damage to blood vessels, nerves, tendons, infection, persistent pain, persistent symptoms, recurrence or possible need for additional surgery were discussed with the patient and the patient wishes to proceed with surgery. Procedure: Once consent was obtained a local block was performed in the preop area using a combination of 1% lidocaine with epinephrine. The patient was then brought back to the operating suite and placed on the operative table in supine position. The left upper extremity was prepped and draped in a standard surgical fashion. Once assured that we had a good block, a 1.5 cm oblique incision was made centered over the A1 candi of the left thumb . The incision was made through the skin to the subcutaneous tissues using a #15 blade. Careful dissection was made down to the level of the A1 candi using tenotomy scissors, with care being taken to protect the nearby neurovascular structures. A longitudinal incision was made in the A1 candi 1st using a #15 blade, then using tenotomy scissors under direct visualization. The A1 candi was noted to be thickened. Following our A1 candi release, we appreciated a significant hourglass deformity. After A1 candi release she had significantly improved range of motion and we no longer saw any locking or catching of the digit with flexion and extension. Once satisfied with our A1 candi release the wound was copiously irrigated with normal saline and hemostasis was obtained with a brief period of local pressure. The skin edges were reapproximated with some 5.0 nylon suture material and a sterile dressing was applied. The patient appears to have tolerated the procedure well and with no complications. All digits were well vascularized at the conclusion of the case.
[2024-09-20 10:09] VITALS: BP 117/54; PULSE 62; RESP 16; O2SAT 96
== END 2024-09-20 10:11 | disposition home or self-care (01) ==
PROVIDERS: PCP Physician Assistant Medical; Visit Provider Orthopaedic Surgery
PROC: (CPT 26055; principal; 2024-09-20 15:00)
DX: M65.312 Trigger thumb, left thumb (principal); M79.645 Pain in left finger(s); M25.50 Pain in unspecified joint; I10 Essential (primary) hypertension; R74.8 Abnormal levels of other serum enzymes; R76.8 Other specified abnormal immunological findings in serum; R76.0 Raised antibody titer; R01.1 Cardiac murmur, unspecified; M81.0 Age-related osteoporosis without current pathological fracture; M47.816 Spondylosis without myelopathy or radiculopathy, lumbar region; F41.9 Anxiety disorder, unspecified; Z98.890 Other specified postprocedural states
CPT/HCPCS: 26055; J0165; J2003

== ENCOUNTER → 2024-09-20 07:36 | Outpatient (BNV) | payer OTHER, SELFPAY | PROVIDERS: PCP Physician Assistant Medical; Visit Provider Orthopaedic Surgery | DX: M65.312 Trigger thumb, left thumb (principal) | CPT/HCPCS: 26055 ==

== ENCOUNTER 2024-10-05 15:12 | Outpatient (AMB) | payer OTHER, SELFPAY ==
--- NOTE | 2024-10-05 15:17 | MHC.OFFVIS ---
Intake Visit Reasons: PO LT trigger thumb 09/20/24 AR Intake Note: Kurt is a 59 year old female who presents today for a post operative visit after undergoing a left trigger thumb release. Patient reports that she is doing well, states disocmfort while performing blood pressures and carrying her laptop. Allergies No Known Allergies Allergy (Verified 10/05/24 15:19) HPI HPI PO LT trigger thumb 09/20/24 AR: Details: Kurt is a 59 year old female who presents today for a post operative visit after undergoing a left trigger thumb release. Patient reports that she is doing well, states disocmfort while performing blood pressures and carrying her laptop. 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 Patient expresses concern that there appears to be a hard bump at the base of her incision site. 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 Polyarthralgia ORION positive Surgical History (Updated 09/20/24 @ 08:10 by Candelaria Beal RN) Hx of colonoscopy History of hand surgery Family History Sister Type 1 diabetes mellitus Social History Household Members: Spouse and Family Housing: House Are you a primary medical care manager to a significant other at home: No Do you presently have visiting nurse or other home services: No 75 years or older and lives alone: No Alcohol intake: current Alcohol intake frequency: does not drink Alcohol type: hard liquor Patient Tobacco Use Status: Never used Tobacco e-Cigarette/Vaping Use: Never Used Second Hand Smoke Exposure: No Substance Use Type: Marijuana service: No Current occupational status: employed 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 Neuro: Normal sensation of the tips of all digits of the left hand at this time Vascular: Cap refill brisk Pain: No tenderness to palpation about the incision site over A1 candi of the left thumb ROM: Patient is able to get close to making closed fist with the left thumb, can flex and extend all other digits of the left hand fully and without difficulty Patient is able to extend the left thumb fully, however she expresses she was able to hyperextend at the IP joint of the left thumb prior to surgery, would like back to this range of motion Skin: Well approximated and well healing incision noted over the A1 candi of the left thumb No lacerations or abrasions. General: No ecchymosis, erythema, or evidence of infection. Psych: Appears grossly normal Affect normal Attitude cooperative Assessment & Plan Assessment & Plan (1) Trigger thumb, left thumb: Code(s): M65.312 - Trigger thumb, left thumb Category: Medical Plan 1. Status post left trigger thumb release DOS 09/20/2024 Patient appears to be recovering well postoperatively Patient is educated about the typical recovery course At this time, patient is offered referral to occupational therapy, as she feels stiff, but declines, stating that she can do exercises at home Patient is educated if she would like referral to occupational therapy in the near future, she can call our office for referral Patient is amenable to this plan Patient is educated that she likely did over exert herself in the 1st 2 weeks of recovery, however she does appear to be recovering very well Patient states understanding of this Follow-up as needed Coding Level of Care Code Global (02681) Diagnoses Trigger thumb, left thumb M65.312
--- OUTSIDE RECORDS SUMMARY | 2024-10-05 16:04 | XMS_ITS | Patient Health Record ---
Author Organization [facility] Address [address] [place] [address] Care Team Providers Care Commercial Plumber Name Role Phone SALUD KRUSE PA-C Primary Care Provider Kevin Nicholson Unavailable [phone] Allergies No Known Allergies Results Component Value Reference Range Notes Complete Blood Count Auto Di ff Reviewed date:10/17/2023 05:48:45 PM Interpretation: Performing Lab:[facility], [address] [place] [phone] Notes/Report: White Blood Count 8.7 4.8-10.8 X10*3/uL [...] te Reviewed date:10/17/2023 05:50:07 PM Interpretation: Performing Lab:[address] [address] Notes/Report: Erythrocyte Sedimentation Rate 7 0-20 MM/HR Patients with polycythemia and many hemoglobin abnormalities may have depressed sed rates whereas patients with anemia may have elevated sed rates. Liver Panel Reviewed date:10/17/2023 05:49:15 PM Interpretation: Performing Lab:[address] [address] Notes/Report: Bilirubin Total 0.3 0.0-1.0 mg/dL Bilirubin Direct 0.1 0.0-0.5 mg/dL Aspartate Amino Transferase 20 5-31 U/L Alanine Aminotransferase 18 0-31 U/L Total Protein 7.7 6.5-8.0 g/dL Albumin Level 4.8 3.5-5.0 g/dL Alkaline Phosphatase 97 39-117 U/L C Reactive Protein Reviewed date:10/17/2023 05:49:25 PM Interpretation: Performing Lab:[address] [address] Notes/Report: C Reactive Protein < 0.10 < or = 0.50 mg/dL Complete Blood Count Auto Di ff Reviewed date:05/20/2024 06:34:16 PM Interpretation: Performing Lab:[address] [address] Notes/Report: White Blood Count 9.1 4.8-10.8 X10*3/uL [...] INR Reviewed date:05/20/2024 06:27:17 PM Interpretation: Performing Lab:[facility], [address] [place] [phone] Notes/Report: Prothrombin Time 10.7 10.9-12.4 SEC INTERNATIONAL [...] Panel Reviewed date:05/20/2024 06:26:25 PM Interpretation: Performing Lab:[address] [address] Notes/Report: Bilirubin Total 0.2 0.0-1.0 mg/dL Bilirubin Direct < 0.2 0.0-0.5 mg/dL Aspartate Amino Transferase 23 5-31 U/L Alanine Aminotransferase 26 0-31 U/L Total Protein 7.5 6.5-8.0 g/dL Albumin Level 4.4 3.5-5.0 g/dL Alkaline Phosphatase 106 39-117 U/L Alpha Fetoprotein Reviewed date:06/10/2024 05:11:31 PM Interpretation: Performing Lab:[facility], [address] [place] [phone] Notes/Report: Alpha Fetoprotein 3.2 Reference Range: <6.1 [...] of disease. THIS TEST WAS PERFORMED AT: [facility] [address] [address] FRANCESCO ORTEGA MD Liver Fibrosis Pnl Reviewed date:06/10/2024 05:11:05 PM Interpretation: Performing Lab:[address] [address] Notes/Report: Liver Fibrosis Score 0.06 Liver Fibrosis [...] a>0.62 and a<=1.00 : A3 (severe activity) CCQ-Wpaai-0-Macroglobulin 171 106-279 mg/dL FIB-Haptoglobin 184 43-212 mg/dL FIB-Apolipoprotein A1 195 101-198 mg/dL FIB-Total Bilirubin 0.3 0.2-1.2 mg/dL FIB-GGT 33 3-70 U/L FIB-ALT 17 6-29 U/L Reference ID [id number] Footnote SEE NOTE The reliability of results [...] The performance characteristics have been determined by [facility]. It has not been cleared or approved by the U.S. Food and Drug Administration. Performance characteristics refer to the analytical performance of the test. [employer], [employer], the associated logo, MyCube and all associated Selftrade bean are the registered trademarks of [employer]. All third constitution party bean - (R) and (TM) - are the property of their respective owners. (C) 4366-9201 [employer] Incorporated. All rights reserved. 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) Active confirmed Problem Elevated liver enzymes level (973700675) Elevated liver function tests (R94.5) Active confirmed Problem Diverticulosis of colon (900593589) Diverticulosis of colon (K57.30) Active confirmed Problem 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) Active confirmed Problem Raised antinuclear antibody (333664188) ORION positive (R76.8) Active confirmed Vital Signs Temperature 97.3 degrees Fahrenheit 05/21/2024 Blood pressure diastolic 01 mm Hg 05/21/2024 Height 62 in 05/21/2024 Blood pressure systolic 001 mm Hg 05/21/2024 Weight 136.2 lbs 05/21/2024 BMI 24.91 kg/m2 05/21/2024 Encounters Encounter Location Date Provider Diagnosis [facility] [address] [place] [address] 11/07/2023 Kevin De Leon Elevated liver funct ion tests R79.89 ; Primary biliary cholangitis K74.3 ; Encounter for screening for malignant neoplasm of colon Z12.11 ; Antimitochondrial antibody positive R76.8 and Diarrhea R19.7 [facility] [place] [address] [place] [address] 05/21/2024 Kevin De Leon Primary biliary cholangitis K74.3 and Encounter for screening for malignant neoplasm of colon Z12.11 [facility] [address] [place] [address] 05/03/2024 Kevin De Leon Primary biliary cholangitis [...] again for allowing me to participate in Tricai's care. I shall continue to keep you [...] Order Date LIVER PROFILE 11/06/2022 LIVER PROFILE 05/03/2024 LIVER PROFILE 09/04/2021 LIVER PROFILE 08/28/2023 LIVER PROFILE 08/03/2021 LIVER PROFILE 11/30/2021 LIVER PROFILE 06/26/2021 IRON + IBC (FE) 06/26/2021 CRP 08/28/2023 CBC w DIFF 11/06/2022 CBC w DIFF 05/03/2024 CBC w DIFF 08/28/2023 CBC w DIFF 08/03/2021 SED RATE (ESR) 08/28/2023 [id number]-[id number] (A1A) 06/26/2021 ALPHA-FETOPROTEIN,TUMOR MARKER ALPHA-FETOPROTEIN,TUMOR MARKER CELIAC [...] De Leon , 05/27/2025 02:30:00 PM, [address], [address], [place], [address], Insurance Providers Payer Name Payer Address Payer Phone Subscriber Number Group Number Insured Name Patient Relationship to Insured Coverage Start Date Coverage End Date 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 [address] [place] [address] [id number] 2 PEG BYRNE Self - patient is the insured [facility] [address] [address] [place] [address] [id number] PEG BYRNE Self - patient is the insured 0 1 Medical (General) History Medical History History ICD Code Denies [place],DM,CVA,Lung disease,renal dise ase Anxiety Primary biliary cholangitis [...]
== END 2024-10-05 15:35 | disposition home or self-care (01) ==
LOC: HO.HOS 15:12
PROVIDERS: PCP Physician Assistant Medical
DX: M65.312 Trigger thumb, left thumb (principal)
CPT/HCPCS: 99024

== ENCOUNTER 2024-10-27 10:09 | Outpatient (AMB) | payer OTHER, SELFPAY ==
--- NOTE | 2024-10-27 10:13 | MHC.OFFVIS ---
Vital Signs 10/27/24 10:16 Height 5 ft 2 in Weight 136 lb BMI 24.9 Intake Visit Reasons: F/u to surgery/ still having issues. Locking/usage Intake Note: Status post left trigger thumb release DOS 09/20/2024. States 2 weeks after surgery, her thumb begin to lock again. She also has a small lump by her volar aspect of palm by CMC joint and MCP and weakness. STates she is not able to lift a coffee cup. Patient interested in O.T. Allergies No Known Allergies Allergy (Verified 10/27/24 10:16) HPI HPI F/u to surgery/ still having issues. Locking/usage: Details: Sofía is a 59 year old right hand dominant woman who returns S/P left trigger thumb release, DOS: 09/20/24. 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 She complains of weakness, pain, and possible locking of her left thumb. She says her hand weakness is limiting her daily activities, and she is concerned about a hard lump in her palm, near her incision site. She has difficulty lifting a cup of coffee or opening a bottle of pop. She would like to discuss OT. She denies any numbness or tingling. 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 Polyarthralgia ORION positive Surgical History Hx of colonoscopy History of hand surgery Family History Sister Type 1 diabetes mellitus Social History Household Members: Spouse and Family Housing: House Are you a primary care transport nurse to a significant other at home: No Do you presently have visiting nurse or other home services: No 75 years or older and lives alone: No Alcohol intake: current Alcohol intake frequency: does not drink Alcohol type: hard liquor Patient Tobacco Use Status: Never used Tobacco e-Cigarette/Vaping Use: Never Used Second Hand Smoke Exposure: No Substance Use Type: Marijuana service: No Current occupational status: employed 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 Current occupational exposures/hazards: No Cognitive needs: No Hearing needs: No Vision needs: No Review of Systems Const All systems reviewed & are unremarkable except as noted in HPI and below Physical Exam Vital Signs: BMI result Body Mass Index 24.9 Const General: no acute distress and alert Orientation/consciousness: patient oriented x3 Neuro General: patient oriented x3 Extrem Other: Evaluation of Left Upper Extremity: The patient is alert, oriented, and in no acute distress Neuro: Median, Ulnar, Radial nerves motor and sensory intact and sensation is normal to the tips of all digits Vascular: Cap refill brisk ROM: She can make a fist and extend all her digits She is able to actively touch her thumb to the small finger a1 candi She had a clicking sensation when she 1st flexed the IP joint of the thumb. It sounded like it came from the joint itself and only occurred once. No no actual locking or catching like you would see with a trigger finger Regarding her incision site, she is healing well with no evidence of infection. The area appears to be healing normally and is not particularly tender. No appreciable masses Psych Appearance: grossly normal Affect: normal affect Attitude: cooperative Assessment & Plan Assessment & Plan (1) Trigger thumb, left thumb: Code(s): M65.312 - Trigger thumb, left thumb Category: Medical (2) Polyarthralgia: Code(s): M25.50 - Pain in unspecified joint Category: Medical Plan Assessment & Plan: 1. Left trigger thumb, S/P release DOS: 09/20/24 It had been locked in extension, and there was a significant hourglass deformity at the time of surgery. The patient appears to be doing well post-operatively I educated her about the post-operative course I discussed activity modification, she is to work on ROM exercises at home I ordered OT hand therapy to work on stretching, strengthening, and normalizing function She can follow up prn 2. Right thumb APB muscle strain Secondary to using a new mouse & overuse No complaints today 3. Right trigger thumb, S/P release DOS: 05/31/21 Resolved. Scribed for Elena Barrios MD by Billy Ca medical receptionist assistant, on 10/27/24 at 10:20 AM, EST. Orders: Orders OT Evaluation and Treatment Today M65.312 - Trigger thumb, left thumb Coding Level of Care Code Global (90536) Diagnoses Trigger thumb, left thumb M65.312 Polyarthralgia M25.50
[2024-10-27 10:16] VITALS: BMI 24.9
--- OUTSIDE RECORDS SUMMARY | 2024-10-27 11:17 | XMS_ITS | Patient Health Record ---
Author Organization [facility] Address [address] [place] [address] Care Team Providers Care Sql Database Developer Name Role Phone SALUD KRUSE PA-C Primary Care Provider Kevin Nicholson Unavailable [phone] Allergies No Known Allergies Results Component Value Reference Range Notes Complete Blood Count Auto Di ff Reviewed date:05/20/2024 06:34:16 PM Interpretation: Performing Lab:[facility], [address] [place] [phone] Notes/Report: White Blood Count 9.1 4.8-10.8 X10*3/uL [...] INR Reviewed date:05/20/2024 06:27:17 PM Interpretation: Performing Lab:[address] [address] Notes/Report: Prothrombin Time 10.7 10.9-12.4 SEC INTERNATIONAL [...] Panel Reviewed date:05/20/2024 06:26:25 PM Interpretation: Performing Lab:[address] [address] Notes/Report: Bilirubin Total 0.2 0.0-1.0 mg/dL Bilirubin Direct < 0.2 0.0-0.5 mg/dL Aspartate Amino Transferase 23 5-31 U/L Alanine Aminotransferase 26 0-31 U/L Total Protein 7.5 6.5-8.0 g/dL Albumin Level 4.4 3.5-5.0 g/dL Alkaline Phosphatase 106 39-117 U/L Alpha Fetoprotein Reviewed date:06/10/2024 05:11:31 PM Interpretation: Performing Lab:[address] [address] Notes/Report: Alpha Fetoprotein 3.2 Reference Range: <6.1 [...] of disease. THIS TEST WAS PERFORMED AT: [employer] [address] [place] [phone] FRANCESCO ORTEGA MD Liver Fibrosis Pnl Reviewed date:06/10/2024 05:11:05 PM Interpretation: Performing Lab:[facility], [address] [place] [phone] Notes/Report: Liver Fibrosis Score 0.06 Liver Fibrosis [...] a>0.62 and a<=1.00 : A3 (severe activity) RHA-Ohpoc-0-Macroglobulin 171 106-279 mg/dL FIB-Haptoglobin 184 43-212 mg/dL FIB-Apolipoprotein A1 195 101-198 mg/dL FIB-Total Bilirubin 0.3 0.2-1.2 mg/dL FIB-GGT 33 3-70 U/L FIB-ALT 17 6-29 U/L Reference ID [id number] Footnote SEE NOTE The reliability of results [...] The performance characteristics have been determined by [facility]. It has not been cleared or approved by the U.S. Food and Drug Administration. Performance characteristics refer to the analytical performance of the test. [employer], the associated logo, Money-Wizards and all associated [employer] bean are the registered trademarks of [employer]. All third green party bean - (R) and (TM) - are the property of their respective owners. (C) 8375-1854 [employer] Inc[employer]. All rights reserved. 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) Active confirmed Problem Elevated liver enzymes level (028365869) Elevated liver function tests (R94.5) Active confirmed Problem Diverticulosis of colon (096483965) Diverticulosis of colon (K57.30) Active confirmed Problem 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) Active confirmed Problem Raised antinuclear antibody (746966154) ORION positive (R76.8) Active confirmed Vital Signs Temperature 97.3 degrees Fahrenheit 05/21/2024 Blood pressure diastolic 01 mm Hg 05/21/2024 Height 62 in 05/21/2024 Blood pressure systolic 001 mm Hg 05/21/2024 Weight 136.2 lbs 05/21/2024 BMI 24.91 kg/m2 05/21/2024 Encounters Encounter Location Date Provider Diagnosis [facility] [address] [place] [address] 11/07/2023 Kevin De Leon Elevated liver funct ion tests R79.89 ; Primary biliary cholangitis K74.3 ; Encounter for screening for malignant neoplasm of colon Z12.11 ; Antimitochondrial antibody positive R76.8 and Diarrhea R19.7 [facility] [address] [place] [address] 05/21/2024 Kevin De Leon Primary biliary cholangitis K74.3 and Encounter for screening for malignant neoplasm of colon Z12.11 [facility] [address] [place] [address] 05/03/2024 Kevin De Leon Primary biliary cholangitis [...] w DIFF 05/03/2024 SED RATE (ESR) 08/28/2023 [id number] (A1A) 06/26/2021 ALPHA-FETOPROTEIN,TUMOR MARKER 3 ALPHA-FETOPROTEIN,TUMOR MARKER [...] Name:Kevin De Leon , 05/27/2025 02:30:00 PM, [address] [place] [address], [address], [place], [address], Insurance Providers Payer Name Payer Address Payer Phone Subscriber Number Group Number Insured Name Patient Relationship to Insured Coverage Start Date Coverage End Date 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 [address] [place] [address] [id number] 2 PEG BYRNE Self - patient is the insured [facility] [address] [address] [place] [address] [id number] PEG BYRNE Self - patient is the insured 0 1 Medical (General) History Medical History History ICD Code Denies [place],DM,CVA,Lung disease,renal dise ase Anxiety Primary biliary cholangitis [...]
== END 2024-10-27 10:52 | disposition home or self-care (01) ==
LOC: HO.HOS 10:09
PROVIDERS: PCP Physician Assistant Medical; Visit Provider Orthopaedic Surgery
DX: M65.312 Trigger thumb, left thumb (principal); M25.50 Pain in unspecified joint
CPT/HCPCS: 99024

== ENCOUNTER 2024-12-10 08:55 | Outpatient (REF) | payer OTHER, SELFPAY ==
--- OUTSIDE RECORDS SUMMARY | 2024-05-07 09:20 | XMS_ITS ---
Author Organization [facility] Address [address] [place] [address] Care Team Providers Care Valuation Consultant Name Role Phone SALUD KRUSE PA-C Primary Care Provider Kevin Nicholson [phone] REASON FOR VISIT PBC Encounters Encounter Location Date Provider Diagnosis [facility] [address] [facility] [address] [place] [address] 05/07/2024 Kevin De Leon Plan Of Treatment Next Appt Details Provider Name:Kevin De Leon , 05/27/2025 02:30:00 PM, [address], [address], [place], [address], Progress Notes * PEG BYRNE ADOB: [birth year] (59 yo F)Acc No.[id number]:05/07/2024 Progress Notes Patient: PEG MURDOCK Provider: Jyothi De Leon MD :1965 A ge:58 Y S ex:Female Date:05/07/2024 Address:[address] [place], [place] [phone] Pcp:SALUD KRUSE PA-C Subjective: * Chief Complaints: * 1 . PBC. * Medical History: Objective: * Vitals: Assessment: Plan: * Treatment: * * The named appointment provid er may or may not be the originator of this progress note, and it is not deemed complete until electronically signed by the appointment provider. Sign off status: Pending * Provider: Jyothi De Leon MD Date: 0 05/07/2024 Generated for Marixa robles/Calvin/Wilber on: 1 09:22 AM EDT
--- NOTE | ~2024-12-10 | US_ITS ---
EXAMINATION: US ABDOMEN COMPLETE WITH LIVER ELASTOGRAPHY HISTORY: PRIMARY BILIARY CHOLANGITIS, ELEVATED LIVER FUNCTION TEST TECHNIQUE: Real-time grayscale ultrasound imaging of the abdomen was performed and images were reviewed. COMPARISON: There are no prior studies available for comparison. FINDINGS: Liver: The right lobe of the liver measures 15.5 cm in size. The left lobe of the liver measures 10.3 cm in size. The liver demonstrates normal homogeneous echotexture. No focal mass or intrahepatic biliary ductal dilatation is identified. There is normal hepatopedal flow in the portal vein. Ultrasound elastography of the liver was performed with 10 separate measurements of the liver parenchyma with the patient in the supine position. Measurements were obtained approximately 2 cm below Linda's capsule and perpendicular to the capsule. The median shear wave velocity is 1.65 m/s (previously 1.55 m/s). The interquartile range/median (IQR/median) is 0.08. Gallbladder and biliary tree: The gallbladder is unremarkable, without evidence of calculi, wall thickening, or pericholecystic fluid. There is no sonographic Gardner sign. The common bile duct is normal in caliber measuring 5 mm. Kidneys: The right kidney measures 10.5 cm in length. The left kidney measures 9.9 cm in length. The kidneys are unremarkable, without evidence of masses, hydronephrosis, or calculi. Pancreas: The pancreatic head, neck, and body are unremarkable. The pancreatic tail is obscured by bowel gas. Spleen: The spleen is normal in size and contour, measuring 7.5 cm in length. Abdominal aorta and inferior vena cava: The visualized portions of the abdominal aorta and inferior vena cava are normal in caliber. There is no free fluid in the abdomen. US/US abdomen comp w elastography IMPRESSION: Mild hepatomegaly. The median shear wave velocity in the liver is 1.65 m/s, corresponding to a median liver stiffness of 8.27 kPa. The IQR/median value is 0.08. This is indicative of a quality data set. Findings are indicative of a low elastography value which rules out advanced chronic liver disease in asymptomatic patients. REFERENCE: [employer] in Ultrasound Liver Stiffness Thresholds (2020): LIVER STIFFNESS THRESHOLDS: *Shear wave velocity less than 1.3 m/s (Liver Stiffness equal or less than 5 kPa): High probability of being normal. *Shear wave velocity less than 1.7 m/s (Liver Stiffness less than 9 kPa): In the absence of other known clinical signs, rules out compensated advanced chronic liver disease. *Shear wave velocity between 1.7-2.1 m/s (Liver Stiffness 9-13 kPa): Suggestive of compensated advanced chronic liver disease but need further test for confirmation. *Shear wave velocity between 2.1-2.4 m/s (Liver Stiffness 13-17 kPa): Rules in compensated advanced chronic liver disease. *Shear wave velocity greater than 2.4 m/s (Liver Stiffness over 17 kPa): Suggestive of clinically significant portal hypertension. QUALITY OF DATA SET: *IQR/Median value equal or less than 0.15 implies a quality data set. *IQR/Median value over 0.15 implies a poor quality data set. SIGNIFICANT CHANGE FROM PRIOR EXAM: Significant change if liver stiffness measurement is 10% or greater from prior exam. OTHER CONSIDERATIONS: The stage of liver fibrosis may be overestimated in the setting of acute hepatitis, liver inflammation, elevated liver function tests, hepatic vascular congestion, obstructive cholestasis, non-fasting state, and infiltrative diseases such as amyloidosis and lymphoma. In some patients with NAFLD, the liver stiffness thresholds for compensated advanced chronic liver disease may be lower. In causes other than viral hepatitis and NAFLD, liver stiffness thresholds are not well established. Electronically signed by: Kevin Calderon MD 12/10/2024 10:13 AM EDT
--- OUTSIDE RECORDS SUMMARY | 2024-12-10 09:22 | XMS_ITS | Patient Health Record ---
Author Organization [facility] Address [address] [place] [address] Care Team Providers Care Intelligence Consultant Name Role Phone SALUD KRUSE PA-C Primary Care Provider Kevin Nicholson Unavailable [phone] Allergies No Known Allergies Results Component Value Reference Range Notes Complete Blood Count Auto Di ff Reviewed date:05/20/2024 06:34:16 PM Interpretation: Performing Lab:[facility], [address] [place] [phone] Notes/Report: White Blood Count 9.1 4.8-10.8 X10*3/uL [...] INR Reviewed date:05/20/2024 06:27:17 PM Interpretation: Performing Lab:[address] [address] Notes/Report: Prothrombin Time 10.7 10.9-12.4 SEC INTERNATIONAL [...] Panel Reviewed date:05/20/2024 06:26:25 PM Interpretation: Performing Lab:[address] [address] Notes/Report: Bilirubin Total 0.2 0.0-1.0 mg/dL Bilirubin Direct < 0.2 0.0-0.5 mg/dL Aspartate Amino Transferase 23 5-31 U/L Alanine Aminotransferase 26 0-31 U/L Total Protein 7.5 6.5-8.0 g/dL Albumin Level 4.4 3.5-5.0 g/dL Alkaline Phosphatase 106 39-117 U/L Alpha Fetoprotein Reviewed date:06/10/2024 05:11:31 PM Interpretation: Performing Lab:[address] [address] Notes/Report: Alpha Fetoprotein 3.2 Reference Range: <6.1 [...] of disease. THIS TEST WAS PERFORMED AT: [facility] [address] [place] [phone] FRANCESCO ORTEGA MD Liver Fibrosis Pnl Reviewed date:06/10/2024 05:11:05 PM Interpretation: Performing Lab:[facility], [address] [place] [phone] Notes/Report: Liver Fibrosis Score 0.06 Liver Fibrosis [...] a>0.62 and a<=1.00 : A3 (severe activity) RQY-Kjvbo-5-Macroglobulin 171 106-279 mg/dL FIB-Haptoglobin 184 43-212 mg/dL FIB-Apolipoprotein A1 195 101-198 mg/dL FIB-Total Bilirubin 0.3 0.2-1.2 mg/dL FIB-GGT 33 3-70 U/L FIB-ALT 17 6-29 U/L Reference ID [id number] Footnote SEE NOTE The reliability of results [...] The performance characteristics have been determined by [facility]. It has not been cleared or approved by the U.S. Food and Drug Administration. Performance characteristics refer to the analytical performance of the test. [employer], the associated logo, Newsgrape and all associated [employer] bean are the registered trademarks of [employer]. All third green party bean - (R) and (TM) - are the property of their respective owners. (C) 6739-2280 [employer]. All rights reserved. 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) Active confirmed Problem Elevated liver enzymes level (218619297) Elevated liver function tests (R94.5) Active confirmed Problem Diverticulosis of colon (107610964) Diverticulosis of colon (K57.30) Active confirmed Problem 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) Active confirmed Problem Raised antinuclear antibody (004168855) ORION positive (R76.8) Active confirmed Vital Signs Temperature 97.3 degrees Fahrenheit 05/21/2024 Blood pressure diastolic 01 mm Hg 05/21/2024 Height 62 in 05/21/2024 Blood pressure systolic 001 mm Hg 05/21/2024 Weight 136.2 lbs 05/21/2024 BMI 24.91 kg/m2 05/21/2024 Encounters Encounter Location Date Provider Diagnosis [facility] [address] [place] [address] 05/21/2024 Kevin De Leon Primary biliary cholangitis K74.3 and Encounter for screening for malignant neoplasm of colon Z12.11 [facility] [address] [place] [address] 05/03/2024 Kevin De Leon Primary biliary cholangitis K74.3 and Elevated liver function tests R94.5 Assessments Encounter Date Diagnosis (ICD Code) Assessment Notes Treatment Notes Treatment Clinical Notes Section Notes 05/21/2024 Primary biliary cholangitis (ICD-10 - K74.3) 05/03/2024 Primary biliary cholangitis (ICD-10 - K74.3) 05/03/2024 Elevated liver function tests (ICD-10 - R94.5) 05/21/2024 Encounter for screening for malignant neoplasm of colon (ICD-10 - Z12.11) Plan Of Treatment Pending Test Test Name Order Date LIVER PROFILE 11/30/2021 LIVER PROFILE 06/26/2021 LIVER PROFILE 11/06/2022 LIVER PROFILE 05/03/2024 LIVER PROFILE 09/04/2021 LIVER PROFILE 08/28/2023 LIVER PROFILE 08/03/2021 IRON + IBC (FE) 06/26/2021 CRP 08/28/2023 CBC w DIFF 08/28/2023 CBC w DIFF 08/03/2021 CBC w DIFF 11/06/2022 CBC w DIFF 05/03/2024 SED RATE (ESR) 08/28/2023 [id number] (A1A) 06/26/2021 ALPHA-FETOPROTEIN,TUMOR MARKER ALPHA-FETOPROTEIN,TUMOR MARKER CELIAC [...] De Leon , 05/27/2025 02:30:00 PM, [address], [address], [place], [address], Insurance Providers Payer Name Payer Address Payer Phone Subscriber Number Group Number Insured Name Patient Relationship to Insured Coverage Start Date Coverage End Date 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 [address] [place] [address] [id number] 2 PEG BYRNE Self - patient is the insured [facility] [address] [address] [place] [address] [id number] PEG BYRNE Self - patient is the insured 0 1 Medical (General) History Medical History History ICD Code Denies [place],DM,CVA,Lung disease,renal dise ase Anxiety Primary biliary cholangitis [...]
== END 2024-12-10 08:56 | disposition home or self-care (01) ==
LOC: HO.US 08:55
PROVIDERS: PCP Physician Assistant Medical; Visit Provider Internal Medicine
DX: K74.3 Primary biliary cirrhosis (principal); R94.5 Abnormal results of liver function studies
CPT/HCPCS: 76700; 76981

== ENCOUNTER → 2024-12-10 08:58 | Outpatient (BNV) | payer OTHER, SELFPAY | PROVIDERS: PCP Physician Assistant Medical; Visit Provider Radiology Diagnostic Radiology | DX: K74.3 Primary biliary cirrhosis (principal); R94.5 Abnormal results of liver function studies; R16.0 Hepatomegaly, not elsewhere classified | CPT/HCPCS: 76700 ==